=== PATIENT | female | born 1955 | race Caucasian/White ===

== ENCOUNTER 2016-10-09 14:11 | Inpatient (IN) | payer BC, OTHER ==
[2016-10-09] MEDS ORDERED: hydrALAZINE HCL 20 MG/ML 1 ML VIAL IVP STA (15:56)
[2016-10-09] MEDS ORDERED: HEPARIN SODIUM,PORCINE 5,000 UNIT/ML 1 ML VIAL IV ONE (16:08)
[2016-10-09 16:14] LABS: Basophils % (A) 0 %; CH 35.6; CHCM 34.2; Eosinophils # (A) 0.1 k/uL (0-0.7); Eosinophils % (A) 1 %; HCT 43.9 % (34.0-46.0); HDW 2.95; HGB 14.6 gm/dL (11.4-16.0); Luc % (Auto) 2; Lymphocytes % (A) 10 %; MCH 34.7 pg (25.0-35.0); MCHC 33.3 g/dL (31.0-37.0); MCV 104.4 fL (80.0-100.0); Macrocytosis Slight; Mean Platelet Volume 6.6; Monocytes # (A) 0.4 k/uL (0-1.0); Monocytes % (A) 5 %; Neutrophils # (A) 7.7 k/uL (1.3-7.7); Neutrophils % (A) 82 %; RBC 4.21 m/uL (3.80-5.40); RDW 14.1 % (11.5-15.5); WBC 9.5 k/uL (3.8-10.6); WBC (Perox) 9.56
[2016-10-09] MEDS ORDERED: HEPARIN SODIUM,PORCINE/D5W PMX 25,000 UNIT in DEXTROSE/WATER 1 500ML.BAG IV SCH (16:15)
[2016-10-09 16:22] LABS: Anion Gap 13 mmol/L; Blood Urea Nitrogen 7 mg/dL (7-17); Calcium 9.4 mg/dL (8.4-10.2); Carbon Dioxide 24 mmol/L (22-30); Chloride 102 mmol/L (98-107); Glucose 115 mg/dL (74-99); Non-African American GFR(MDRD) >60 (>60 ml/min/1.73 sqM); Potassium 3.6 mmol/L (3.5-5.1); Sodium 139 mmol/L (137-145)
[2016-10-09] MEDS ORDERED: MORPHINE SULFATE 4 MG/ML SYRINGE IVP STA (16:22)
[2016-10-09] MEDS ORDERED: ONDANSETRON 4 MG/2 ML VIAL IVP STA (16:22)
[2016-10-09 16:23] LABS: INR 1.2 (<1.1); Partial Thromboplastin Time 23.9 sec (22.0-30.0); Prothrombin Time 11.6 sec (9.0-12.0)
--- NOTE | 2016-10-09 16:24 | ED ---
Lower Extremity Injury HPI - General Chief Complaint: Extremity Problem,Nontraumatic Stated Complaint: Poss DVT Left leg Time Seen by Provider: 10/09/16 15:09 Source: patient, RN notes reviewed Mode of arrival: ambulatory Limitations: no limitations - History of Present Illness Initial Comments: 61-year-old female presents emergency Department chief complaint left foot pain. Patient states she noticed there is some purplish color to the left foot digit. Patient's had problems with her right leg in the past in which she had a stent in her femoral region. States Dr. June did this. Patient states she was a former smoker quit 5 years ago. Patient states that she does not see a physician or return the bases though she wishes a history of hyperlipidemia and uncontrolled hypertension. Patient denies any chest pain or shortness of breath. Patient states her fifth toe is very painful. - Related Data Home Medications Medication Instructions Recorded Confirmed No Known Home Medications [No 10/09/16 10/09/16 Known Home Medications] Allergies Allergy/AdvReac Type Severity Reaction Status Date / Time No Known Allergies Allergy Verified 10/09/16 14:53 Review of Systems ROS Statement: Those systems with pertinent positive or pertinent negative responses have been documented in the HPI. ROS Other: All systems not noted in ROS Statement are negative. Past Medical History Past Medical History: No Reported History History of Any Multi-Drug Resistant Organisms: None Reported Past Surgical History: Hysterectomy Additional Past Surgical History / Comment(s): Stent Past Psychological History: No Psychological Hx Reported Smoking Status: Former smoker Past Alcohol Use History: Abuse Past Drug Use History: None Reported General Exam Limitations: no limitations General appearance: alert, in no apparent distress Head exam: Present: atraumatic, normocephalic, normal inspection Respiratory exam: Present: normal lung sounds bilaterally. Absent: respiratory distress, wheezes, rales, rhonchi, stridor Cardiovascular Exam: Present: regular rate, normal rhythm, normal heart sounds. Absent: systolic murmur, diastolic murmur, rubs, gallop, clicks Extremities exam: Present: other (Left foot there is bluish purple discoloration noted to the fifth digit and some noted to the first digit and there is some redness in heel formation noted on the foot in the arch region. There is very faint pulses palpable dorsal pedal and posterior tibialis) Neurological exam: Present: alert, oriented X3, CN II-XII intact Course Vital Signs 10/09/16 10/09/16 14:18 16:01 Temperature 99 F 98.2 F Pulse Rate 110 H 93 Respiratory 18 18 Rate Blood Pressure 184/102 199/92 O2 Sat by Pulse 95 97 Oximetry Medical Decision Making - Medical Decision Making Dr. calix did discuss case with Dr. June recommends heparin, admit to hospitalist at this time. - Lab Data Result diagrams: 10/09/16 15:55 Lab Results 10/09/16 Range/Units 15:55 WBC 9.5 (3.8-10.6) k/uL RBC 4.21 (3.80-5.40) m/uL Hgb 14.6 (11.4-16.0) gm/dL Hct 43.9 (34.0-46.0) % MCV 104.4 H (80.0-100.0) fL MCH 34.7 (25.0-35.0) pg MCHC 33.3 (31.0-37.0) g/dL RDW 14.1 (11.5-15.5) % Plt Count 191 (150-450) k/uL Neutrophils % 82 % Lymphocytes % 10 % Monocytes % 5 % Eosinophils % 1 % Basophils % 0 % Neutrophils # 7.7 (1.3-7.7) k/uL Lymphocytes # 1.0 (1.0-4.8) k/uL Monocytes # 0.4 (0-1.0) k/uL Eosinophils # 0.1 (0-0.7) k/uL Basophils # 0.0 (0-0.2) k/uL Macrocytosis Slight Disposition Clinical Impression: Arterial occlusion, Left foot pain Disposition: ADMITTED IP TO THIS HOSP Condition: Stable
[2016-10-09] MEDS ORDERED: HEPARIN SODIUM,PORCINE 10,000 UNIT/ML 1 ML VIAL IV ONE (16:26)
[2016-10-09] MEDS ORDERED: HEPARIN SODIUM,PORCINE 5,000 UNIT/ML 1 ML VIAL IV PRN (16:26)
[2016-10-09] MEDS ORDERED: NALOXONE 0.4 MG/ML 1 ML VIAL IV PRN (16:27)
[2016-10-09] MEDS ORDERED: hydrALAZINE HCL 20 MG/ML 1 ML VIAL IVP PRN (16:29)
[2016-10-09] MEDS: LORazepam 2 MG/ML SYRINGE IV PRN (16:46)
[2016-10-09] MEDS: HEPARIN SODIUM,PORCINE/D5W PMX 25,000 UNIT in DEXTROSE/WATER 1 500ML.BAG IV SCH (16:49)
[2016-10-09] MEDS ORDERED: RX INFO: IV CONTRAST WAS GIVEN 1 EACH MISC MISCELLANE PRN (17:11)
--- NOTE | 2016-10-09 17:36 | P.GSCN ---
Past Medical History Past Medical History: No Reported History History of Any Multi-Drug Resistant Organisms: None Reported Past Surgical History: Hysterectomy Additional Past Surgical History / Comment(s): Stent Past Psychological History: No Psychological Hx Reported Smoking Status: Former smoker Past Alcohol Use History: Abuse Past Drug Use History: None Reported Medications and Allergies Home Medications Medication Instructions Recorded Confirmed Type No Known Home Medications [No 10/09/16 10/09/16 History Known Home Medications] Allergies Allergy/AdvReac Type Severity Reaction Status Date / Time No Known Allergies Allergy Verified 10/09/16 14:53 Surgical - Exam Vital Signs Temp Pulse Resp BP Pulse Ox 99 F 110 H 18 184/102 95 10/09/16 14:18 10/09/16 14:18 10/09/16 14:18 10/09/16 14:18 10/09/16 14:18 Results - Labs 10/09/16 15:55 10/09/16 15:55
--- NOTE | 2016-10-09 18:30 | CT ---
EXAMINATION TYPE: CT angio abdomen pelvis DATE OF EXAM: 10/09/2016 6:16 PM COMPARISON: NONE HISTORY: Pt states of occlusion to left leg with left foot pain. Hx of occlusion to right leg. CT DLP: 1800 mGycm Automated exposure control for dose reduction was used. CONTRAST: Performed with IV Contrast, patient injected with 125 mL of Omnipaque 350. FINDINGS: There are 3-D post processed images. Abdominal aorta is patent. There is moderate atherosclerotic plaque in the abdominal aorta with lumen narrowing up to 30%. There is no evidence of an aneurysm. There is patency of the superior mesenteri c artery and the celiac artery. There is bilateral renal artery patency. I see no evidence of hemodyn amically significant stenosis. There is some plaque at the origin of the right renal artery. There is bilateral patency of the common internal and external iliac arteries. There is patency of th e femoral arteries. There is patency of the popliteal and tibial artery trifurcations. There is arter ial flow in the anterior and posterior tibial arteries down to the ankle. There is diffuse plaque in the femoral arteries with lumen narrowing of the 50% in multiple areas. This is worse on the left com pared to the right. There is 50% stenosis at the origin of the left posterior tibial artery. IMPRESSION: THERE ARE ATHEROSCLEROTIC PLAQUE WITH VARIABLE STENOSIS DEMONSTRATED UP TO 50% DESCRIBED ABOVE. NO EVIDENCE OF COMPLETE OCCLUSION. THERE IS ANTERIOR AND POSTERIOR TIBIAL ARTERY FLOW AT BOTH ANKLES. I DO NOT SEE A CAUSE FOR LEFT-SIDED FOOT PAIN.
[2016-10-09] MEDS: HYDROcodone/APAP 5-325MG 1 EACH TAB PO PRN (20:44)
[2016-10-09] MEDS: MORPHINE SULFATE 4 MG/ML SYRINGE IV PRN (23:39)
[2016-10-10] MEDS: HYDROcodone/APAP 5-325MG 1 EACH TAB PO PRN ×3 (02:31→23:55)
[2016-10-10] MEDS: MORPHINE SULFATE 4 MG/ML SYRINGE IV PRN ×2 (03:35→12:16)
[2016-10-10] MEDS: ONDANSETRON 4 MG/2 ML VIAL IVP PRN ×2 (07:43→17:22)
[2016-10-10 07:49] LABS: INR 1.3 (<1.1); Partial Thromboplastin Time 67.8 sec (22.0-30.0); Prothrombin Time 12.4 sec (9.0-12.0)
[2016-10-10] MEDS: LORazepam 2 MG/ML SYRINGE IV PRN (08:15)
[2016-10-10] MEDS ORDERED: ASPIRIN 325 MG TAB PO STA (11:47)
[2016-10-10] MEDS ORDERED: ceFAZolin 2 GM in SODIUM CHLORIDE 0.9% 100 ML IVPB STA (13:31)
[2016-10-10] MEDS ORDERED: MIDAZOLAM 2 MG/2 ML VIAL IVP ONE (13:41)
[2016-10-10] MEDS ORDERED: fentaNYL (PF) 50 MCG/ML 2 ML AMP IV ONE (13:41)
[2016-10-10] MEDS ORDERED: IV FLUID CONTINUATION 500 ML IV ONE (13:41)
[2016-10-10] MEDS ORDERED: LIDOCAINE 2% INJ 20 MG/ML SQ ONE (13:43)
[2016-10-10] MEDS ORDERED: HEPARIN SODIUM 1,000 UNIT/ML VIAL IV ONE (13:59)
[2016-10-10] MEDS ORDERED: HYDROmorphone 2 MG/ML 1 ML SYRINGE IVP ONE (14:07)
[2016-10-10] MEDS ORDERED: CLOPIDOGREL 75 MG TAB PO ONE (14:34)
[2016-10-10] MEDS ORDERED: PROTAMINE SULFATE 10 MG/ML 5 ML VIAL IV ONE (14:40)
[2016-10-10] MEDS ORDERED: IODIXANOL 320 MG/ML 100 ML INTRAARTER ONE (14:41)
[2016-10-10] MEDS: hydrALAZINE HCL 20 MG/ML 1 ML VIAL IV ONE ×2 (14:44→14:50)
--- NOTE | 2016-10-10 15:34 | IR ---
EXAMINATION TYPE: IR stent intravas non coronary DATE OF EXAM: 10/10/2016 3:20 PM COMPARISON: NONE HISTORY: Peripheral vascular occlusive disease. Fluoroscopy was applied to the referring clinician. See dictated report from vascular surgery.
[2016-10-10] MEDS: HEPARIN SODIUM,PORCINE/D5W PMX 25,000 UNIT in DEXTROSE/WATER 1 500ML.BAG IV SCH (17:00)
[2016-10-10] MEDS ORDERED: ALPRAZolam 0.25 MG TAB PO PRN (17:15)
[2016-10-10 18:29] LABS: Appearance,Urine Clear (Clear); Bacteria,Urine Moderate /hpf; Bilirubin,Urine Negative (Negative); Glucose,Urine (UA) Negative (Negative); Ketones,Urine Trace (Negative); Leukocyte Esterase,Urine Negative (Negative); Mucus,Urine Few /hpf; Nitrite,Urine Negative (Negative); PH, Urine 6.5 (5.0-8.0); Particle Count 20389; Protein,Urine 1+ (Negative); RBC,Urine 3 /hpf (0-5); Squamous Epithelial Cell,Urine 1 /hpf (0-4); UA Billing (MACRO vs. MICRO) MICRO; Urobilinogen,Urine <2.0 mg/dL (<2.0)
[2016-10-10 18:35] LABS: Specific Gravity,Urine >1.050 (1.001-1.035)
[2016-10-10] MEDS ORDERED: TEMAZEPAM 15 MG CAP PO PRN (21:00)
--- NOTE | 2016-10-10 21:09 | HP ---
DATE OF ADMISSION: CHIEF COMPLAINT: Pain and discoloration of the left foot, especially the little toe. HISTORY OF PRESENT ILLNESS: This 61-year-old woman with a past history of bronchitis also has constipation, UTI, history of hysterectomy, history of depression, history of previous peripheral vascular disease and femoropopliteal stent on the right side with ischemic event on the right side, being followed Dr. Vu in the outpatient setting, complaining of severe pain of the right leg since yesterday. The patient came to the emergency room and was admitted for further evaluation and treatment. The patient also noted some purplish discoloration of the foot digit. Dr. June saw the patient. Abdominal/pelvis CT scan showed some stenosis in the main arterial system with some atherosclerotic plaques. Dr. June is planning further vascular procedures and stenting also. Patient is being closely monitored. There is no history of any fever, rigor, or chills. No history of any headache, loss of consciousness, seizures. PAST MEDICAL HISTORY: 1. History of bronchitis. 2. Colitis. 3. Endometriosis. 4. History of appendectomy. 5. History of tubal ligation. 6. History of depression. MEDICATIONS PRIOR TO ADMISSION: None. ALLERGIES: NONE. FAMILY HISTORY: History of lung cancer, brain tumor in the family. SOCIAL HISTORY: Previous history of smoking. Occasional alcohol intake. REVIEW OF SYSTEMS: ENT: No diminished hearing. No diminished vision. CARDIOVASCULAR SYSTEM: No angina, palpitations. RESPIRATORY SYSTEM: No cough, hemoptysis. GI: No nausea. : No dysuria. NERVOUS SYSTEM: No numbness or weakness. ALLERGY/IMMUNOLOGY: No asthma, hayfever. MUSCULOSKELETAL: As mentioned earlier. HEMATOLOGY/ONCOLOGY: No history of anemia. ENDOCRINE: No history of diabetes, hypothyroidism. CONSTITUTIONAL: As mentioned earlier. DERMATOLOGY: Negative. RHEUMATOLOGY: Negative. PSYCHIATRY: As mentioned earlier. PHYSICAL EXAMINATION: The patient is alert and oriented x3. Pulse is 100, blood pressure 130/60, respiratory rate 16, temperature normal, pulse ox 98% on 2 L. HEENT: Conjunctivae normal. NECK: No jugular venous distention. CARDIOVASCULAR SYSTEM: S1, S2 muffled. RESPIRATORY: Breath sounds diminished in the bases. A few scattered rhonchi. No crackles. ABDOMEN: Soft, nontender. No mass palpable. LEGS: Pulses diminished on the left side; otherwise, purplish discoloration and severe tenderness in the left little toe present. NERVOUS SYSTEM: Higher functions as mentioned earlier. Moves all 4 limbs. No focal motor or sensory deficit. LYMPHATICS: No lymph node palpable in neck, axillae or groin. SKIN: No ulcer, rash, bleeding. LABS: MCV 104. Glucose 115. ASSESSMENT: 1. Severe peripheral vascular disease on the left leg with arterial occlusion with ischemic left little toe. 2. Heparin monitoring. 3. Increased mean corpuscular volume. 4. History of nicotine dependence. 5. History of peripheral vascular disease and stenting on the right side. 6. History of bronchitis. 7. History of ulcerative colitis. 8. History of endometriosis. 9. History of constipation. 10. History of appendectomy. 11. Hysterectomy. 12. History of depression. 13. History of bowel obstruction secondary to endometriosis. 14. Remote history of ethanol. RECOMMENDATIONS AND DISCUSSION: In this 61-year-old woman who presented with multiple complex medical issues, we will monitor the patient closely, continue the current medications, continue symptomatic treatment. Continue with the antiplatelet agents. Closely follow with Vascular Surgery. Continue with IV heparin monitoring, PTT. Otherwise, I would also check a lipid panel. Guarded prognosis because of multiple complex medical issues. See orders for further details. Further recommendations to follow. MTDD
[2016-10-11 06:58] LABS: Basophils # (A) 0.1 k/uL (0-0.2); Basophils % (A) 1 %; CH 35.2; CHCM 32.7; Eosinophils # (A) 0.1 k/uL (0-0.7); Eosinophils % (A) 2 %; HCT 40.3 % (34.0-46.0); HDW 2.88; Luc # (Auto) 0.17; Luc % (Auto) 3; Lymphocytes # (A) 0.5 k/uL (1.0-4.8); Lymphocytes % (A) 8 %; MCH 34.9 pg (25.0-35.0); MCHC 32.3 g/dL (31.0-37.0); Macrocytosis Moderate; Mean Platelet Volume 7.7; Monocytes # (A) 0.3 k/uL (0-1.0); Monocytes % (A) 5 %; Neutrophils % (A) 82 %; RBC 3.73 m/uL (3.80-5.40); RDW 14.3 % (11.5-15.5); WBC 6.1 k/uL (3.8-10.6); WBC (Perox) 6.67
--- NOTE | 2016-10-11 07:07 | PCN ---
DATE OF PROCEDURE: PREOPERATIVE DIAGNOSIS: Ischemic left foot, fifth toe, with occlusion of the left external iliac artery. OPERATION: Left leg angiogram to evaluate the left iliac artery. DESCRIPTION OF PROCEDURE: This patient came to the emergency room with a history of severe pain in her left foot involving the fifth toe with discoloration of the fifth toe. Patient had a CT angiogram which showed external iliac occlusive disease. Patient was heparinized overnight and we stopped the heparin 4 hours prior to intervention. Patient was brought to the laborer carpentry dock. Left groin was prepped and draped in the usual manner. After that, ultrasound-guided micropuncture ( ) was introduced to the left common femoral artery. Micropuncture guidewire was passed and 4 Chinese dilator was advanced on top of the guidewire. After that, we exchanged the 4 Chinese with 6 Chinese sheath, which was passed on the top of the guidewire and flushed with heparin saline. We used a QuickCross guidewire using 0.14 guidewire, which crossed the lesion, which was parked at the aorta and this was exchanged with 0.35 stiff Glidewire and pigtail catheter was advanced on top of the Glidewire, which was parked at the a distal aorta and with power injector. Aortogram was performed. This patient had a right common iliac stent placed in the past and left external iliac artery was visualized, which had a high-grade stenosis. We gave 5000 systemic heparin and stenotic area was localized and using Absolute stent 9 x 60 mm which was advanced on top of the Glidewire, which was deployed at the left common iliac artery and covering the external iliac artery stenotic area, which was deployed satisfactory. After that, we used balloon [place] 8 x 60 which was inflated for a minute and then removed. After that, we passed a pigtail on the top of the Glidewire and angiogram was performed and found to have satisfactory dilatation of the external iliac artery. No dissection, no leak was noted. Pigtail catheter was removed. We checked the ACT. ACT was 240. I gave 20 mg of protamine and we checked the blood pressure. Blood pressure was 196/102. At that time we gave 5 mg hydralazine and blood pressure was brought down to 136/80. Then the sheath was removed. Pressure was held for 10 minutes and there was no hematoma noted. Patient had a palpable dorsalis pedis pulse on the left side. Patient was transferred to her room in satisfactory condition.
[2016-10-11 07:10] LABS: INR 1.2 (<1.1)
[2016-10-11 07:11] LABS: Partial Thromboplastin Time 25.2 sec (22.0-30.0); Prothrombin Time 11.7 sec (9.0-12.0)
[2016-10-11 07:12] LABS: Anion Gap 10 mmol/L; Blood Urea Nitrogen 11 mg/dL (7-17); Calcium 8.9 mg/dL (8.4-10.2); Carbon Dioxide 26 mmol/L (22-30); Chloride 102 mmol/L (98-107); Cholesterol 189 mg/dL (<200); Glucose 101 mg/dL (74-99); HDL Cholesterol 54 mg/dL (40-60); Non-African American GFR(MDRD) >60 (>60 ml/min/1.73 sqM); Potassium 3.7 mmol/L (3.5-5.1); Sodium 138 mmol/L (137-145); Triglycerides 84 mg/dL (<150)
[2016-10-11] MEDS: CLOPIDOGREL 75 MG TAB PO SCH (08:53)
[2016-10-11] MEDS: HYDROcodone/APAP 5-325MG 1 EACH TAB PO PRN (08:58)
--- NOTE | 2016-10-11 10:23 | P.PN ---
Progress Note - Text 61 old white female, patient came ischemic left foot, patient had a left external iliac arteries and angioplasty vessel with stent placement to she tolerated the procedure well on examination today she palpable dorsalis pedis pulse left groin no hematoma seen patient will go to stepdown floor most likely tomorrow patient go home
[2016-10-11 16:34] VITALS: RESP 18
[2016-10-11] MEDS: ATORVASTATIN 40 MG TAB PO SCH (16:35)
--- NOTE | 2016-10-11 18:50 | PN ---
DATE OF SERVICE: 10/11/2016 This 61-year-old woman was admitted with ischemic left leg and severe pain underwent PTBA by Dr. June. The patient underwent left external iliac angioplasty with stent placement. The patient's pain is improved significantly but the discoloration of the little toe is still persistent even though appears to be getting better. No chest pain. No palpitation. No fever. On exam, alert and oriented x3. Pulse 94, blood pressure 127/78, respiratory rate 18, temperature 97.9, pulse ox 93% on room air. HEENT: Conjunctivae normal. NECK: No jugular venous distention. CARDIOVASCULAR: S1, S2 muffled. RESPIRATORY: Breath sounds diminished at the bases. No rhonchi. No crackles. ABDOMEN: Soft, nontender. Legs: No edema. No swelling. Pulses felt. Otherwise, discoloration as mentioned earlier which is improving on the left toe and plantar aspect of the great toe as well. LABS: INR 1.2. WBC 6.9, hemoglobin 13, UA noted. Drug screen is positive benzodiazepines, opiates. ASSESSMENT: 1. Severe peripheral vascular disease with left leg with ischemic left leg with artery occlusion with ischemic left knee status post angioplasty and as well as stent placement in external iliac circulation. 2. Heparin monitoring. 3. Increased MCV. 4. History of nicotine dependence. 5. History of peripheral vascular disease and stenting of the right side previously. 6. History of bronchitis. 7. History of ulcerative colitis. 8. History of endometriosis. 9. History of constipation. 10. History of appendectomy. 11. History of hysterectomy. 12. History of depression. 13. History of bowel obstruction secondary to endometriosis. 14. Remote history of ETOH. 15. Remote history nicotine dependence. 16. FULL CODE. RECOMMENDATIONS AND DISCUSSION: In this 61-year-old woman who presented with multiple complex medical issues, we will monitor the patient closely. Continue the current medications and continue symptomatic treatment. Otherwise, at this time, I recommend to continue with antiplatelet agents. Closely follow with Dr. June. Continue the rest of the medications. Guarded prognosis because of multiple complex medical issues. Further recommendations to follow.
[2016-10-11 22:34] VITALS: TEMP 97.6
[2016-10-12 07:28] LABS: Basophils % (A) 1 %; CH 35.2; CHCM 32.8; Eosinophils # (A) 0.2 k/uL (0-0.7); Eosinophils % (A) 3 %; HCT 38.8 % (34.0-46.0); HDW 2.86; HGB 12.3 gm/dL (11.4-16.0); Luc # (Auto) 0.21; Luc % (Auto) 4; Lymphocytes # (A) 0.8 k/uL (1.0-4.8); Lymphocytes % (A) 13 %; MCH 34.1 pg (25.0-35.0); MCHC 31.7 g/dL (31.0-37.0); MCV 107.7 fL (80.0-100.0); Macrocytosis Moderate; Mean Platelet Volume 6.9; Monocytes # (A) 0.3 k/uL (0-1.0); Monocytes % (A) 6 %; Neutrophils # (A) 4.4 k/uL (1.3-7.7); Neutrophils % (A) 75 %; RDW 14.3 % (11.5-15.5); WBC 5.9 k/uL (3.8-10.6); WBC (Perox) 5.95
[2016-10-12 07:30] LABS: INR 1.2 (<1.1); Prothrombin Time 11.9 sec (9.0-12.0)
[2016-10-12 08:27] VITALS: BP 142/75; PULSE 84
[2016-10-12] MEDS: CLOPIDOGREL 75 MG TAB PO SCH (08:27)
[2016-10-12] MEDS: ATORVASTATIN 40 MG TAB PO SCH (08:27)
--- NOTE | 2016-10-13 11:28 | DS ---
DATE OF ADMISSION: 10/09/2016 DATE OF DISCHARGE: 10/12/2016 DATE OF SERVICE: 10/12/2016 FINAL DIAGNOSES: 1. Severe peripheral vascular disease of the left leg with ischemic left leg with arterial occlusion with status post angioplasty as well as stent placement in the extremity circulation on the left side. 2. Heparin monitoring. 3. Increased MCV. 4. History of nicotine dependence. 5. History of peripheral arterial disease and stenting of the right side previously. 6. History of bronchitis and history of ulcerative colitis. 7. History of endometriosis. 8. History of constipation. 9. History of appendectomy. 10. History of hysterectomy. 11. History of depression. 12. History of bowel obstruction secondary to endometriosis. 13. Remote history of Ethyl alcohol. 14. Remote history of nicotine dependence. 15. FULL CODE. DISCHARGE DISPOSITION: The patient will be discharged in a stable condition with guarded prognosis. Patient discharge cleared by Dr. June. HISTORY OF PRESENT ILLNESS: This 61-year-old woman with a past medical history of multiple medical problems was admitted with severe peripheral vascular disease of the left leg and also ischemic left leg in multiple areas with severe pain. The patient underwent a PTBA by Dr. June and the patient improved significantly. Please refer to Dr. June's detailed operative procedure notes for further details. Otherwise, patient was treated with antiplatelets and Lipitor. Patient improved significantly. No chest pain or palpitation. No fever. Currently, on exam alert and oriented x3, vitals are stable. CARDIOVASCULAR SYSTEM: S1, S2 muffled. ABDOMEN: Soft. NERVOUS SYSTEMS: No focal deficits. DISCHARGE ADVICE: 1. Diet is cardiac. 2. Activity limited until followup. 3. Follow up with Dr. Vu in 2 to 3 days. 4. Follow up with Dr. June in 1 week. Medications are: 1. Lipitor 40 mg p.o. daily. 2. Plavix 75 mg p.o. daily. 3. [place] 5 mg q.4 p.r.n. Once again, the patient will be discharged in a stable condition with guarded prognosis.
--- NOTE | 2016-12-11 15:41 | US ---
DATE OF PROCEDURE: 10/09/2016 This patient had pulse wave recording of the both lower extremities. Right iliac artery and femoral artery and popliteal artery has triphasic signal. There is no pressure gradient. Ankle-brachial index on the right side is 0.96. Left side has biphasic flow. There is pressure gradient noted. In the iliac and femoral on the left side with pressure gradient of 30. Also there is some infrapopliteal pressure gradient and ankle-brachial index on the left side is 0.58 suggestive of left iliac occlusive disease and some mild infrapopliteal disease and right side has a normal triphasic with index of 0.96.
== END 2016-10-12 13:20 | disposition home or self-care (01) | DRG 253 ==
LOC: EC 14:11 → 5MS5E 16:54 → 6SEL 10-10 16:08 → 5MS5E 10-11 19:30
PROVIDERS: ADMIT Internal Medicine; ATTEND Internal Medicine
PROC: B41D1ZZ Fluoroscopy of Aorta and Bilateral Lower Extremity Arteries using Low Osmolar Contrast (ICD-10-PCS; principal; 2016-10-10 13:22)
PROC: 047D3DZ Dilation of Left Common Iliac Artery with Intraluminal Device, Percutaneous Approach (ICD-10-PCS; principal; 2016-10-10 13:22)
DX: I70.292 Other atherosclerosis of native arteries of extremities, left leg (principal); I74.5 Embolism and thrombosis of iliac artery; I10 Essential (primary) hypertension; E78.5 Hyperlipidemia, unspecified; Z87.891 Personal history of nicotine dependence
CPT/HCPCS: 36415; 37221; 74174; 80048; 80061; 80306; 81001; 85025; 85347; 85610; 85730; 93922; 96365; 96366; 96375; 96376; 99285

== ENCOUNTER 2017-01-01 14:01 | Emergency (ER) | payer OTHER ==
[2017-01-01] MEDS ORDERED: ENALAPRILAT 1.25 MG/ML 1 ML VIAL IVP STA (15:11)
--- NOTE | 2017-01-01 15:12 | ED ---
Extremity Problem HPI - General Chief complaint: Extremity Problem,Nontraumatic Stated complaint: Stent in groin. Diff walking Time Seen by Provider: 01/01/17 14:16 Source: patient, RN notes reviewed, old records reviewed Mode of arrival: wheelchair Limitations: no limitations - History of Present Illness Initial comments: Chief complaint and history of present illness is a 61-year-old female complaint of pain to her distal left leg and foot and discoloration to her left little toe, turning purple, for 4 days. Patient stayed home hoping it would get better. Patient states she had a stent placed to increase the flow to that left leg this past October. - Related Data Home Medications Medication Instructions Recorded Confirmed No Known Home Medications [No 01/01/17 01/01/17 Known Home Medications] Allergies Allergy/AdvReac Type Severity Reaction Status Date / Time No Known Allergies Allergy Verified 01/01/17 14:42 Review of Systems ROS Statement: Those systems with pertinent positive or pertinent negative responses have been documented in the HPI. Review of systems no headache or visual acuity changes no chest pain no palpitations no shortness of breath no abdominal pain no nausea no vomiting. She reports when she stands she has a burning pain to her inner left thigh. But otherwise for the past 4 days she's had increasing pain and cold feeling with a a purple discoloration to her left little toe. All systems reviewed. Past medical problems significant for peripheral vascular disease. She's had surgery on the right side more recently on the left. Patient was told to take aspirin daily but she has not done that for over 2 weeks. Patient also has a history of hypertension current blood pressure 183/103. She states she's been told and has had a prescription written but she does not take the medications. She had no good explanation as to why she didn't. Patient did stop smoking approximately 5 years ago when she had the right leg stented. Other medical problems include bronchitis which she says improved significantly after she stopped smoking. Her surgeries include appendectomy, bowel resection because of endometriosis wrapped around the bowel and it was removed during a total hysterectomy years ago. She's also had a stent to the right groin approximately 5 years ago and a stent to her left groin to improve blood flow to her feet this past October. Family history significant for mother with colon cancer. She denies any ALLERGIES. As noted above she quit smoking in 2011. She does drink liquor daily. ROS Other: All systems not noted in ROS Statement are negative. Past Medical History Past Medical History: No Reported History Additional Past Medical History / Comment(s): BRONCHITIS,ULCERATIVE COLITIS, ENDOMETREOSIS, CONSTIPATION, UTI, SHINGLES > 5 YEARS, OCC TINNITUS, "BORN WITH 10% RETINA LT EYE" History of Any Multi-Drug Resistant Organisms: None Reported Past Surgical History: Appendectomy, Bowel Resection, Hysterectomy, Tubal Ligation Additional Past Surgical History / Comment(s): "Stent RT GROIN", BARTHOLIN CYST REMOVED, TOTAL HX AND 4" OF SMALL INTESTINE REMOVED D/T ENDOMETREOSIS" Past Anesthesia/Blood Transfusion Reactions: No Reported Reaction Past Psychological History: Depression Additional Psychological History / Comment(s): PT STATED HAS SOME DEPRESSION AND ADMITS TO DRINKING A PINT TO PINT AND A HALF OF SCHNAPPS A DAY. 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 LOST HER JOB 2015. LIVES ALONE HAS 5 STEPS INTO HOME AND 8 BASEMENT STEPS,HAS 1 INDOOR DOG, NO OUTSIDE SERVICES.NO MEDICAL EQUIPMENT. DRIVES. Smoking Status: Former smoker Past Alcohol Use History: None Reported, Daily Additional Past Alcohol Use History / Comment(s): PINT TO PINT AND A HALF OF SCHNAPPS A DAY. STARTED SMOKING AT AGE 16(1971), SMOKED 1 PPD, QUIT 2011 Past Drug Use History: None Reported - Past Family History Father Family Medical History: Cancer Additional Family Medical History / Comment(s): LUNG CANCER(SMOKED), BRAIN TUMOR REMOVED-HAD RADIATION [place] THEN HAD STROKE. Mother Family Medical History: Cancer Additional Family Medical History / Comment(s): COLON AND SKIN CANCER. ALSO HAD TB Brother(s) Additional Family Medical History / Comment(s): 1 BROTHER HAS MS, ANOTHER BROTHER FROM COMPLICATIONS FROM ETOH/SCHIZOPHRENIA General Exam - General Exam Comments Initial Comments: General: The patient is awake and alert, complaining of increasing pain and coldness to her right ankle and foot with her left toe becoming more purple for 4 days. Vital signs shows temperature 99.3 pulse 100 respiratory rate 18 pulse ox 97% room air blood pressure 183/103. Eye: Pupils are equal, round and reactive to light, extra-ocular movements are intact ; there is normal conjunctiva bilaterally. No signs of icterus. Ears, nose, mouth and throat: There are moist mucous membranes and no oral lesions. Neck: The neck is supple, there is no tenderness . Cardiovascular: There is a regular rate and rhythm. No murmur, rub or gallop is appreciated. Respiratory: Lungs are clear to auscultation, respirations are non-labored, breath sounds are equal. No wheezes, stridor, rales, or rhonchi. Gastrointestinal: Soft, non-distended, non-tender abdomen without masses or organomegaly noted. There is no rebound or guarding present. No CVA tenderness. Bowel sounds are unremarkable. Back: There is no tenderness to palpation in the midline. There is no obvious deformity. No rashes noted. Musculoskeletal: Burning pain while standing and walking to the inner left thigh. Cold, pain distal left leg ankle to foot. With discoloration, purplish, left little toe. Doppler shows a week he has dorsalis pulse. Neurological: Neurologically intact except for a burning sensation in her left thigh when she stands. Skin: Left little toe purplish, dusky. Poor vascular return Limitations: no limitations Course Vital Signs 01/01/17 01/01/17 01/01/17 14:03 14:39 14:43 Temperature 99.3 F Pulse Rate 93 101 H 100 Respiratory 18 16 18 Rate Blood Pressure 213/98 212/105 183/103 O2 Sat by Pulse 95 99 97 Oximetry 01/01/17 01/01/17 15:25 16:01 Temperature Pulse Rate 94 108 H Respiratory 18 20 Rate Blood Pressure 190/116 180/95 O2 Sat by Pulse 97 99 Oximetry Medical Decision Making - Medical Decision Making Doppler examination of the left foot finds a very weak pedis dorsalis pulse. Case discussed with the patient's vascular surgeon Dr. June he will see the patient in the emergency room or the hospital. The patient was given Vasotec 1.25 IV push for elevated blood pressure. tthe patient was seen by Dr. June who has arranged for the patient to be transferred to [facility] for evaluation and management by vascular surgeon Dr. Marquez. Patient hasn't ischemic left leg. The patient will first have a CT of abdomen and pelvis with runoff product being transferred to [facility]. EKG was done and reviewed at 1528 showing sinus rhythm with a short NJ interval and occasional PACs. Otherwise nonspecific ST-T wave changes. No acute ST elevation no ectopy. Patient's ventricular rate 93 NJ interval is 110 QRS 94 QT [address] of the abdomen and pelvis with runoff to the feet. Was done and reviewed by radiologist entire report was reviewed. His final impression is #1 marked atheromatous calcifications of the visualized arterial tree. Number to near complete occlusion of the origin of the superficial femoral artery. #33 vessel runoff proximally in both legs with 2 vessel runoff to the ankle on the right and one vessel runoff to the ankle on the left. Number for fatty infiltration of the liver. #5 mild cardiomegaly. #6 small bowel hernia. #7 postsurgical change. As read by Dr. Qureshi The patient be transferred via ambulance [facility] and to be evaluated by vascular surgeon Dr. Marquez Available CAT scans will be included in the discharge transfer packet. - Lab Data Result diagrams: 01/01/17 15:20 01/01/17 15:20 Lab Results 01/01/17 01/01/17 01/01/17 Range/Units 15:20 15:20 15:20 WBC 9.8 (3.8-10.6) k/uL RBC 3.60 L (3.80-5.40) m/uL Hgb 13.0 (11.4-16.0) gm/dL Hct 39.2 (34.0-46.0) % MCV 108.9 H (80.0-100.0) fL MCH 36.2 H (25.0-35.0) pg MCHC 33.2 (31.0-37.0) g/dL RDW 18.2 H (11.5-15.5) % Plt Count 260 (150-450) k/uL Neutrophils % 83 % Lymphocytes % 11 % Monocytes % 4 % Eosinophils % 1 % Basophils % 0 % Neutrophils # 8.1 H (1.3-7.7) k/uL Lymphocytes # 1.1 (1.0-4.8) k/uL Monocytes # 0.4 (0-1.0) k/uL Eosinophils # 0.1 (0-0.7) k/uL Basophils # 0.0 (0-0.2) k/uL Anisocytosis Slight Macrocytosis Marked PT 10.8 (9.0-12.0) sec INR 1.1 (<1.1) Sodium 141 (137-145) mmol/L Potassium 3.4 L (3.5-5.1) mmol/L Chloride 103 (98-107) mmol/L Carbon Dioxide 25 (22-30) mmol/L Anion Gap 13 mmol/L BUN 7 (7-17) mg/dL Creatinine 0.60 (0.52-1.04) mg/dL Est GFR (MDRD) Af Amer >60 (>60 ml/min/1.73 sqM) Est GFR (MDRD) Non-Af >60 (>60 ml/min/1.73 sqM) Glucose 111 H (74-99) mg/dL Calcium 9.6 (8.4-10.2) mg/dL Total Bilirubin 1.4 H (0.2-1.3) mg/dL AST 62 H (14-36) U/L ALT 53 H (9-52) U/L Alkaline Phosphatase 119 (38-126) U/L Total Protein 7.4 (6.3-8.2) g/dL Albumin 4.3 (3.5-5.0) g/dL Disposition Clinical Impression: Ischemia of left lower extremity Disposition: OTHER INSTITUTION NOT DEFINED Condition: Serious Referrals: Sarah Beth Vu MD [Primary Care Provider] - 1-2 days - Out of Hospital Transfer - Req. Specs Out of Hospital Transfer - Requested Specifics: Other Emergency Center ( [facility] emergency room)
[2017-01-01] MEDS ORDERED: SODIUM CHLORIDE 0.9% 1,000 ML IV SCH (15:15)
[2017-01-01] MEDS ORDERED: RX INFO: IV CONTRAST WAS GIVEN 1 EACH MISC MISCELLANE PRN (15:50)
[2017-01-01 16:10] LABS: ALT 53 U/L (9-52); AST 62 U/L (14-36); Alkaline Phosphatase 119 U/L (38-126); Anion Gap 13 mmol/L; Blood Urea Nitrogen 7 mg/dL (7-17); Calcium 9.6 mg/dL (8.4-10.2); Carbon Dioxide 25 mmol/L (22-30); Chloride 103 mmol/L (98-107); Glucose 111 mg/dL (74-99); Non-African American GFR(MDRD) >60 (>60 ml/min/1.73 sqM); Potassium 3.4 mmol/L (3.5-5.1); Sodium 141 mmol/L (137-145); Total Bilirubin 1.4 mg/dL (0.2-1.3); Total Protein 7.4 g/dL (6.3-8.2)
[2017-01-01 16:12] LABS: Anisocytosis Slight; Basophils % (A) 0 %; CH 36.4; CHCM 33.5; Eosinophils # (A) 0.1 k/uL (0-0.7); Eosinophils % (A) 1 %; HCT 39.2 % (34.0-46.0); Luc # (Auto) 0.16; Luc % (Auto) 2; Lymphocytes # (A) 1.1 k/uL (1.0-4.8); Lymphocytes % (A) 11 %; MCH 36.2 pg (25.0-35.0); MCHC 33.2 g/dL (31.0-37.0); MCV 108.9 fL (80.0-100.0); Macrocytosis Marked; Mean Platelet Volume 7.2; Monocytes # (A) 0.4 k/uL (0-1.0); Monocytes % (A) 4 %; Neutrophils # (A) 8.1 k/uL (1.3-7.7); Neutrophils % (A) 83 %; RDW 18.2 % (11.5-15.5); WBC 9.8 k/uL (3.8-10.6); WBC (Perox) 9.56
[2017-01-01 16:21] LABS: INR 1.1 (<1.1); Prothrombin Time 10.8 sec (9.0-12.0)
--- NOTE | 2017-01-01 17:10 | CT ---
EXAMINATION TYPE: CT angio abd aorta wo/w con DATE OF EXAM: 01/01/2017 4:55 PM COMPARISON: Previous study dated 10/09/2016 HISTORY: Inability to bear weight on the left leg CT DLP: 1182.3 mGycm Automated exposure control for dose reduction was used. TECHNIQUE: Performed with IV Contrast, patient injected with 125 mL of Omnipaque 350. Helical acquisition through the lower thoracic and abdominal aorta with imaging through the legs was obtained following the intravenous administration of 125 cc of Omnipaque 350. The data was reformatte d in axial, coronal and sagittal projections. Three-dimensional volume acquired imaging was performed on the CT scanner. FINDINGS: Visualized portions of the lungs are clear. There is no pleural or pericardial fluid. The h eart is mildly enlarged. There is a small hiatal hernia. Within the abdomen, is fatty infiltration of the liver. The spleen and gallbladder appear normal. There is mild fullness of both adrenal glands. Both kidneys demonstrate function and appear morphologically normal. The pancreas is unremarkable. There is atheromatous calcification of the visualized arterial tree. There is mild ectasia of the inf rarenal abdominal aorta with maximal transverse diameter of 3 cm. There is no significant retroperitoneal, iliac or inguinal adenopathy. The bladder is unremarkable. There is been a previous partial right hemicolectomy. Small bowel loops are normal. No free fluid and no free air is seen. There is extensive calcification of the internal and external iliac arteries bilaterally. Both common femoral arteries at are patent. There is a near occlusion of the origin of the superficial femoral a rtery on the left. The artery is markedly attenuated. Both popliteal arteries are patent. There is three-vessel runoff proximally bilaterally. Both the anterior and the posterior tibial arter ies are patent to the ankle on the right. The anterior tibial artery on the left attenuates just abov e the ankle. No acute osseous lesion is seen in either leg. There are significant degenerative changes in the hips , worse on the left than the right. There is facet arthropathy in the lower lumbar spine. No osseous destructive lesion is seen.. IMPRESSION: 1. MARKED ATHEROMATOUS CALCIFICATION OF THE VISUALIZED ARTERIAL TREE. 2. NEAR-COMPLETE OCCLUSION OF THE ORIGIN OF THE SUPERFICIAL FEMORAL ARTERY. 3. THREE-VESSEL RUNOFF PROXIMALLY IN BOTH LEGS WITH TWO-VESSEL RUNOFF TO THE ANKLE ON THE RIGHT AND O NE VESSEL RUNOFF TO THE ANKLE ON THE LEFT. 4. FATTY INFILTRATION OF THE LIVER. 5. MILD CARDIOMEGALY. 6. SMALL HIATAL HERNIA. 7. POSTSURGICAL CHANGE.
[2017-01-01 17:36] VITALS: RESP 18; TEMP 97.8
[2017-01-01 18:01] VITALS: BP 151/82; PULSE 104
== END 2017-01-01 19:00 | disposition short-term general hospital (02) ==
LOC: EC 14:01
DX: M62.272 Nontraumatic ischemic infarction of muscle, left ankle and foot (principal); I49.1 Atrial premature depolarization; I51.7 Cardiomegaly; K76.0 Fatty (change of) liver, not elsewhere classified; I70.90 Unspecified atherosclerosis; K44.9 Diaphragmatic hernia without obstruction or gangrene; I74.3 Embolism and thrombosis of arteries of the lower extremities; R03.0 Elevated blood-pressure reading, without diagnosis of hypertension; Z87.891 Personal history of nicotine dependence; Z90.49 Acquired absence of other specified parts of digestive tract; Z95.828 Presence of other vascular implants and grafts
CPT/HCPCS: 36415; 93005; 80053; 85025; 85610; 75635; 99285; 96374; 96361 ×4; Q9967

== ENCOUNTER 2017-05-18 17:40 | Emergency (ER) | payer OTHER ==
[2017-05-18 17:46] VITALS: PULSE 73; RESP 18; TEMP 97.3
[2017-05-18] MEDS ORDERED: DIPH,PERTUS(ACELL)TETVAC-LF 0.5 ML VIAL IM ONE (17:59)
--- NOTE | 2017-05-18 18:08 | ED ---
Fall HPI - General Chief Complaint: Fall Stated Complaint: Fall Time Seen by Provider: 05/18/17 17:47 Source: patient, EMS Mode of arrival: EMS - History of Present Illness Initial Comments: Patient is a 61-year-old female with past medical history significant for bilaterally at aorto-femoral bypass earlier this year. Patient reports that since that surgery she's been working with physical therapy to increase ambulating. She reports that today she was working with her physical therapist in her home, she states that she was wearing weights and standing. She reports that upon standing she felt the urge to have a bowel movement and rushed to the restroom. Patient states that she was told by her physical therapist that she needs to slow down and asked for assistance however the patient was concerned that she was going to have a bowel movement so she continued to rash. She states that when she got into the bathroom she took a step sideways and lost her footing falling backwards and striking the back of her head on the bathtub. Patient reports that she did not lose consciousness. She felt an immediate pain in the back of her head a reached up and noticed that there was bleeding. Her physical therapist then made the decision call 911. Patient remained in a sitting position in her bathroom until EMS arrived and transported her to the emergency department. Patient's only complaint upon arrival is a mild headache as well as bleeding from the laceration in the back of her head. Patient is unsure when her tetanus was last updated, she is agreeable to having the tetanus vaccination today. Patient states she is on a daily baby aspirin but no other antiplatelet or anticoagulant medications. MD Complaint: fall -: minutes(s) Fall From: standing When Fall Occurred: 1 hour [employer] Fall Witnessed: no Place Fall Occurred: home Loss of Consciousness: none Prolonged Down Time?: no Symptoms Prior to Fall: none Location: head Severity: moderate Quality: dull Context: tripped/slipped Associated Symptoms: headache - Related Data Home Medications Medication Instructions Recorded Confirmed Atorvastatin [Lipitor] 40 mg PO HS 05/18/17 05/18/17 DULoxetine HCL [Cymbalta] 30 mg PO DAILY 05/18/17 05/18/17 Metoprolol Tartrate [Lopressor] 12.5 mg PO BID 05/18/17 05/18/17 Potassium Chloride [K-Tab ER] 10 meq PO DAILY 05/18/17 05/18/17 Allergies Allergy/AdvReac Type Severity Reaction Status Date / Time No Known Allergies Allergy Verified 05/18/17 18:26 Review of Systems ROS Statement: Those systems with pertinent positive or pertinent negative responses have been documented in the HPI. ROS Other: All systems not noted in ROS Statement are negative. Constitutional: Reports: weakness (Paralyzed) Eyes: Denies: eye pain, vision change ENT: Denies: dental pain Respiratory: Denies: cough, dyspnea Cardiovascular: Denies: chest pain, palpitations Endocrine: Denies: fatigue Gastrointestinal: Denies: abdominal pain, nausea, vomiting Genitourinary: Denies: urgency, dysuria Musculoskeletal: Denies: back pain Skin: Reports: change in color ([place] to right forearm) Neurological: Reports: headache, abnormal gait (Secondary to surgery, currently working with physical therapy to improve gait). Denies: numbness, paresthesias , confusion Psychiatric: Reports: anxiety. Denies: depression Hematological/Lymphatic: Denies: easy bleeding, easy bruising Past Medical History Past Medical History: No Reported History Additional Past Medical History / Comment(s): BRONCHITIS,ULCERATIVE COLITIS, ENDOMETREOSIS, CONSTIPATION, UTI, SHINGLES > 5 YEARS, OCC TINNITUS, "BORN WITH 10% RETINA LT EYE" History of Any Multi-Drug Resistant Organisms: None Reported Past Surgical History: Appendectomy, Bowel Resection, Hysterectomy, Tubal Ligation Additional Past Surgical History / Comment(s): "Stent RT GROIN", BARTHOLIN CYST REMOVED, TOTAL HX AND 4" OF SMALL INTESTINE REMOVED D/T ENDOMETREOSIS" Aortic bypass 2016 Past Anesthesia/Blood Transfusion Reactions: No Reported Reaction Past Psychological History: Depression Smoking Status: Former smoker Past Alcohol Use History: None Reported, Daily Past Drug Use History: None Reported - Past Family History Father Family Medical History: Cancer Additional Family Medical History / Comment(s): LUNG CANCER(SMOKED), BRAIN TUMOR REMOVED-HAD RADIATION [place] THEN HAD STROKE. Mother Family Medical History: Cancer Additional Family Medical History / Comment(s): COLON AND SKIN CANCER. ALSO HAD TB Brother(s) Additional Family Medical History / Comment(s): 1 BROTHER HAS MS, ANOTHER BROTHER FROM COMPLICATIONS FROM ETOH/SCHIZOPHRENIA General Exam Limitations: no limitations General appearance: alert, in no apparent distress Head exam: Present: other (2 cm laceration to left occiput) Eye exam: Present: PERRL, EOMI, other (Subconjunctival hematoma in the right eye ) Pupils: Absent: irregular, unequal, miosis, mydriatic ENT exam: Present: normal exam Neck exam: Present: normal inspection, full ROM. Absent: tenderness Respiratory exam: Present: normal lung sounds bilaterally. Absent: respiratory distress Cardiovascular Exam: Present: regular rate, normal rhythm GI/Abdominal exam: Present: soft. Absent: distended, tenderness, guarding, rebound, rigid Rectal exam: Present: deferred Extremities exam: Present: full ROM, other (contusion to right forearm) Back exam: Present: normal inspection Neurological exam: Present: alert, oriented X3 Psychiatric exam: Present: normal affect, normal mood Skin exam: Present: warm, dry, other (laceration to posterior scalp - approximately 2cm over left occiput) Course Vital Signs 05/18/17 05/18/17 17:42 19:36 Temperature 97.3 F L Pulse Rate 73 73 Respiratory 18 18 Rate Blood Pressure 140/75 124/58 O2 Sat by Pulse 97 97 Oximetry Procedures - Laceration Laceration #1 Consent Obtained: verbal consent Time Out Performed: Yes Indication: laceration Site: scalp Description: linear Depth: simple, single layer Pre-repair: wound explored, irrigated extensively, deep structures intact Additional Comments: 3 robyn Medical Decision Making - Medical Decision Making The patient was seen and evaluated, history was obtained from the patient and EMS Patient with a mechanical trip and fall backward striking her head on the bathtub. Patient did not have loss of consciousness. On a daily aspirin but denies other anticoagulant or antiplatelet medication Patient claims a headache since the fall, She has no focal neurologic deficits, no midline cervical spine tenderness, no evidence of intoxication, no distracting injuries. This time the patient's cervical spine is cleared via Nexus criteria CT of the brain and cervical spine were ordered for evaluation Tetanus vaccination ordered because patient is unsure what hurts was last updated Labs were ordered Head CT with no acute findings Labs with no significant change from previous Patient's had laceration was cleaned, irrigated and repaired with 3 robyn states that she lives in her mother's home, her mother's home 24 hours a day and can with her for the next 24 hours for observation. However her mother does not drive at night and patient is nonambulatory therefore will need an ambulance ride home. I offered the patient admission to the hospital for recurrent falls, however patient states she does not want to be admitted she doesn't feel that she requires admission at this time. She states that both of her falls in the past week have been well worked out with her physical therapist she feels that this is due to her physical therapist push eager to hard. She states that she feels safe at home and would like to be discharged home. S with the patient the patient's on aspirin have a increased risk of delayed bleeding and should she develop any worsening headache she needs call 911 immediately for transfer back to the hospital. I will order an ambulance ride home the patient is to be observed by her mother. Patient was advised to call 911 should she develop any worsening headache, confusion, nausea or vomiting. Patient was discharged home with it instructions on postconcussive symptoms as well as staple care. Patient's pertaining to care were answered to the best my ability patient was discharged home in stable condition. - Lab Data Result diagrams: 05/18/17 18:30 05/18/17 18:30 Lab Results 05/18/17 05/18/17 05/18/17 Range/Units 18:30 18:30 18:30 WBC 8.3 (3.8-10.6) k/uL RBC 3.70 L (3.80-5.40) m/uL Hgb 10.5 L (11.4-16.0) gm/dL Hct 34.9 (34.0-46.0) % MCV 94.4 (80.0-100.0) fL MCH 28.3 (25.0-35.0) pg MCHC 30.0 L (31.0-37.0) g/dL RDW 17.7 H (11.5-15.5) % Plt Count 320 (150-450) k/uL Neutrophils % 77 % Lymphocytes % 12 % Monocytes % 6 % Eosinophils % 3 % Basophils % 0 % Neutrophils # 6.4 (1.3-7.7) k/uL Lymphocytes # 1.0 (1.0-4.8) k/uL Monocytes # 0.5 (0-1.0) k/uL Eosinophils # 0.2 (0-0.7) k/uL Basophils # 0.0 (0-0.2) k/uL Hypochromasia Marked Anisocytosis Slight PT 12.3 H (9.0-12.0) sec INR 1.2 H (<1.2) APTT 23.4 (22.0-30.0) sec Sodium 138 (137-145) mmol/L Potassium 4.3 (3.5-5.1) mmol/L Chloride 108 H (98-107) mmol/L Carbon Dioxide 23 (22-30) mmol/L Anion Gap 7 mmol/L BUN 12 (7-17) mg/dL Creatinine 0.70 (0.52-1.04) mg/dL Est GFR (MDRD) Af Amer >60 (>60 ml/min/1.73 sqM) Est GFR (MDRD) Non-Af >60 (>60 ml/min/1.73 sqM) Glucose 81 (74-99) mg/dL Calcium 7.8 L (8.4-10.2) mg/dL Disposition Clinical Impression: Laceration of head Disposition: HOME SELF-CARE Condition: Good Instructions: Concussion (ED), Fall Prevention for Older Adults (ED), Diphtheria Tetanus and Pertussis Vaccine (ED), Post Concussion Syndrome (ED), Staple Care (ED) Referrals: Sarah Beth Vu MD [Primary Care Provider] - 1-2 days Time of Disposition: 20:15
[2017-05-18 19:04] LABS: Anisocytosis Slight; Basophils % (A) 0 %; CH 28.1; Eosinophils # (A) 0.2 k/uL (0-0.7); Eosinophils % (A) 3 %; HCT 34.9 % (34.0-46.0); HDW 2.61; HGB 10.5 gm/dL (11.4-16.0); Hypochromasia Marked; Luc # (Auto) 0.18; Luc % (Auto) 2; Lymphocytes % (A) 12 %; MCH 28.3 pg (25.0-35.0); MCV 94.4 fL (80.0-100.0); Mean Platelet Volume 7.1; Monocytes # (A) 0.5 k/uL (0-1.0); Monocytes % (A) 6 %; Neutrophils # (A) 6.4 k/uL (1.3-7.7); Neutrophils % (A) 77 %; RDW 17.7 % (11.5-15.5); WBC 8.3 k/uL (3.8-10.6); WBC (Perox) 8.34
[2017-05-18 19:20] LABS: Anion Gap 7 mmol/L; Blood Urea Nitrogen 12 mg/dL (7-17); Calcium 7.8 mg/dL (8.4-10.2); Carbon Dioxide 23 mmol/L (22-30); Chloride 108 mmol/L (98-107); Glucose 81 mg/dL (74-99); Non-African American GFR(MDRD) >60 (>60 ml/min/1.73 sqM); Potassium 4.3 mmol/L (3.5-5.1); Sodium 138 mmol/L (137-145)
[2017-05-18 19:36] LABS: INR 1.2 (<1.2); Partial Thromboplastin Time 23.4 sec (22.0-30.0); Prothrombin Time 12.3 sec (9.0-12.0)
[2017-05-18 19:38] VITALS: BP 124/58
--- NOTE | 2017-05-18 19:50 | CT ---
EXAMINATION TYPE: CT brain feng douglas DATE OF EXAM: 05/18/2017 COMPARISON: NONE HISTORY: Trip and fall, laceration left posterior scalp. CT DLP: 1675.00 mGycm Automated exposure control for dose reduction was used. TECHNIQUE: CT scan of the head and cervical spine are performed without contrast. FINDINGS: Consistent with the history, there is minimal subcutaneous emphysema posteriorly on the le ft, but there is no underlying skull fracture. There is no acute intracranial hemorrhage, mass, mass effect, definite new attenuation defect, or midline shift. The ventricles and sulci are within marco l limits in size. The globes are intact and the visualized sinuses are clear. Cervical spine is visualized in its entirety from C1 through upper thoracic levels and demonstrates s atisfactory alignment without evidence of acute fracture or dislocation. Prevertebral soft tissue ap pears within normal limits. The C1-C2 articulation is unremarkable. IMPRESSION: 1. There is no acute fracture or dislocation evident in the cervical spine. 2. No acute cranial/intracranial process.
== END 2017-05-18 21:58 | disposition home or self-care (01) ==
LOC: EC 17:40
DX: S01.01XA Laceration without foreign body of scalp, initial encounter (principal); F32.9 Major depressive disorder, single episode, unspecified; Z23 Encounter for immunization; Z87.891 Personal history of nicotine dependence; Z79.899 Other long term (current) drug therapy; W01.10XA Fall on same level from slipping, tripping and stumbling with subsequent striking against unspecified object, initial encounter; Y92.008 Other place in unspecified non-institutional (private) residence as the place of occurrence of the external cause
CPT/HCPCS: 12001; 36415; 70450; 72125; 80048; 85025; 85610; 85730; 90471; 90715; 99284

== ENCOUNTER 2017-10-02 11:57 | Inpatient (IN) | payer OTHER ==
[2017-10-02] MEDS ORDERED: MORPHINE SULFATE 4 MG/ML SYRINGE IVP STA (12:55)
[2017-10-02] MEDS ORDERED: PIPERACILLIN-TAZOBACTAM 3.375 GM in DEXTROSE/WATER 1 50ML.BAG IVPB STA (12:57)
--- NOTE | 2017-10-02 13:00 | ED ---
Wound/Laceration HPI <Fabián Rodriguez - Last Filed: 10/02/17 15:34> - General Source: patient, EMS, RN notes reviewed, old records reviewed Mode of arrival: EMS Limitations: no limitations <Tierney Whiting - Last Filed: 10/02/17 15:47> - General Chief Complaint: Wound/Laceration Stated Complaint: Breast Infection Time Seen by Provider: 10/02/17 12:30 - History of Present Illness Initial Comments: This patient is a 62-year-old female chief complaint of severe drainage and pain in her right breast. Patient reports that since May she had an area of firmness and erythema on the right breast. She reports that she was told to follow-up with but had never done so. She states that her breast is a become increasingly red and swollen throughout this time. She states it became acutely worse last week. She states that yesterday she noticed that she had some drainage on her shirt. She reported that there are 3 large holes underneath the right nipple and purulent drainage has been coming through this. Here she reports that it is odorous. Patient has a history of abdominal aortic bypass procedure and atherosclerotic disease. Patient reports that she had significant surgery done for this in April and then was in rehab. She reports that she when she got home she felt like she just did not want to come back to the hospital so she wanted to stay home as much as possible. Patient reports that she was concerned due to the amount of drainage and felt that she needed to be seen. She denies any history of breast cancer. She denies any family history of breast cancer. She's had mammograms in the past but does not remember the last time she's had one. (Tierney Whiting) - Related Data Home Medications Medication Instructions Recorded Confirmed Acetaminophen Tab [Tylenol Tab] 650 mg PO Q6H PRN 10/02/17 10/02/17 Allergies Allergy/AdvReac Type Severity Reaction Status Date / Time No Known Allergies Allergy Verified 10/02/17 12:41 Review of Systems ROS Other: All systems not noted in ROS Statement are negative. <Fabáin Rodriguez - Last Filed: 10/02/17 15:34> ROS Other: All systems not noted in ROS Statement are negative. <Tierney Whiting - Last Filed: 10/02/17 15:47> ROS Statement: Those systems with pertinent positive or pertinent negative responses have been documented in the HPI. Past Medical History Past Medical History: No Reported History Additional Past Medical History / Comment(s): ENDOMETREOSIS "BORN WITH 10% RETINA LT EYE" History of Any Multi-Drug Resistant Organisms: None Reported Past Surgical History: Appendectomy, Bowel Resection, Coronary Bypass/CABG, Hysterectomy, Tubal Ligation Additional Past Surgical History / Comment(s): "Stent RT GROIN", BARTHOLIN CYST REMOVED, TOTAL HX AND 4" OF SMALL INTESTINE REMOVED D/T ENDOMETREOSIS" Aortic bypass 2016 Past Anesthesia/Blood Transfusion Reactions: No Reported Reaction Past Psychological History: Depression Smoking Status: Former smoker Past Alcohol Use History: None Reported, Daily Past Drug Use History: None Reported - Past Family History Father Family Medical History: Cancer Additional Family Medical History / Comment(s): LUNG CANCER(SMOKED), BRAIN TUMOR REMOVED-HAD RADIATION [place] THEN HAD STROKE. Mother Family Medical History: Cancer Additional Family Medical History / Comment(s): COLON AND SKIN CANCER. ALSO HAD TB Brother(s) Additional Family Medical History / Comment(s): 1 BROTHER HAS MS, ANOTHER BROTHER FROM COMPLICATIONS FROM ETOH/SCHIZOPHRENIA <Tierney Whiting - Last Filed: 10/02/17 15:47> General Exam <Fabián Rodriguez - Last Filed: 10/02/17 15:34> Limitations: no limitations General appearance: alert, in no apparent distress Head exam: Present: atraumatic, normocephalic, normal inspection Eye exam: Present: normal appearance, PERRL, EOMI. Absent: scleral icterus, conjunctival injection, periorbital swelling ENT exam: Present: normal exam, mucous membranes moist Neck exam: Present: normal inspection. Absent: tenderness, meningismus, lymphadenopathy Respiratory exam: Present: normal lung sounds bilaterally, other (Patient has significant swelling, erythema surrounding the entire right breast. The lateral aspect of the breast is very firm. She has 3 very deep openings near the nipple with purulent drainage. ). Absent: respiratory distress, wheezes, rales, rhonchi, stridor Cardiovascular Exam: Present: regular rate, normal rhythm, normal heart sounds. Absent: systolic murmur, diastolic murmur, rubs, gallop, clicks GI/Abdominal exam: Present: soft, normal bowel sounds, other (Patient is a large scar over abdomen from previous bypass surgery.). Absent: distended, tenderness, guarding, rebound, rigid Extremities exam: Present: normal inspection, full ROM, normal capillary refill. Absent: tenderness, pedal edema, joint swelling, calf tenderness Back exam: Present: normal inspection Neurological exam: Present: alert, oriented X3, CN II-XII intact Psychiatric exam: Present: normal affect, normal mood Skin exam: Present: warm, dry, intact, normal color, erythema (Patient has significant erythema and induration over the right breast. Evidence of deep abscess with purulent drainage near the nipple.). Absent: rash <Tierney Whiting - Last Filed: 10/02/17 15:47> - General Exam Comments Initial Comments: This patient is a 62-year-old female. Patient appears anxious and is tearful. ( Tierney Whiting) Course <Fabián Rodriguez - Last Filed: 10/02/17 15:34> <Tierney Whiting - Last Filed: 10/02/17 15:47> Vital Signs 10/02/17 10/02/17 12:07 13:40 Temperature 97.8 F Pulse Rate 97 77 Respiratory 17 18 Rate Blood Pressure 140/67 133/66 O2 Sat by Pulse 99 100 Oximetry - Reevaluation(s) Reevaluation #1: 10/02/17 15:34 Patient reevaluated by myself, Dr. Rodriguez. Patient does have erythema to the majority of the right breast with induration. In addition there is open area with purulent discharge. Patient updated on results and plan. Case was discussed in detail with Dr. Ash, who will admit for hospital call. (Fabián Rodriguez ) Medical Decision Making - Lab Data Result diagrams: 10/02/17 13:30 10/02/17 13:30 <Fabián Rodriguez - Last Filed: 10/02/17 15:34> - Lab Data Result diagrams: 10/02/17 13:30 10/02/17 13:30 - Radiology Data Radiology results: report reviewed <Tierney Whiting - Last Filed: 10/02/17 15:47> - Medical Decision Making This is a 62-year-old female chief complaint of right breast infection. She noticed the area of redness starting in May but is become acutely worse over the last week. Yesterday started have some purulent drainage underneath the nipple. Patient's entire right breast is very red and swollen and tender. She has significant pus underneath the nipple. Patient has no fevers or chills. Patient had septic workup. Blood cultures obtained lactic acid obtained. BMP shows evidence of hypokalemia. Given oral replacement. We'll also do want IV replacement as well. Patient was started on IV Zosyn. Wound culture obtained. Ultrasound of the breast was performed results currently pending. (Tierney Whiting) - Lab Data Lab Results 10/02/17 10/02/17 10/02/17 Range/Units 13:30 13:30 13:30 WBC 10.2 (3.8-10.6) k/uL RBC 3.10 L (3.80-5.40) m/uL Hgb 10.2 L (11.4-16.0) gm/dL Hct 32.2 L (34.0-46.0) % MCV 104.0 H (80.0-100.0) fL MCH 33.0 (25.0-35.0) pg MCHC 31.8 (31.0-37.0) g/dL RDW 22.4 H (11.5-15.5) % Plt Count 443 (150-450) k/uL Neutrophils % 86 % Lymphocytes % 9 % Monocytes % 3 % Eosinophils % 2 % Basophils % 0 % Neutrophils # 8.7 H (1.3-7.7) k/uL Lymphocytes # 0.9 L (1.0-4.8) k/uL Monocytes # 0.3 (0-1.0) k/uL Eosinophils # 0.2 (0-0.7) k/uL Basophils # 0.0 (0-0.2) k/uL Polychromasia Present Anisocytosis Moderate Macrocytosis Marked PT (9.0-12.0) sec INR (<1.2) APTT (22.0-30.0) sec Sodium 139 (137-145) mmol/L Potassium 2.6 L* (3.5-5.1) mmol/L Chloride 103 (98-107) mmol/L Carbon Dioxide 23 (22-30) mmol/L Anion Gap 13 mmol/L BUN 11 (7-17) mg/dL Creatinine 0.70 (0.52-1.04) mg/dL Est GFR (MDRD) Af Amer >60 (>60 ml/min/1.73 sqM) Est GFR (MDRD) Non-Af >60 (>60 ml/min/1.73 sqM) Glucose 102 H (74-99) mg/dL Plasma Lactic Acid [place] 1.2 (0.7-2.0) mmol/L Calcium 9.1 (8.4-10.2) mg/dL Total Bilirubin 0.8 (0.2-1.3) mg/dL AST 24 (14-36) U/L ALT 14 (9-52) U/L Alkaline Phosphatase 110 (38-126) U/L Total Protein 7.2 (6.3-8.2) g/dL Albumin 3.4 L (3.5-5.0) g/dL 10/02/17 Range/Units 13:30 WBC (3.8-10.6) k/uL RBC (3.80-5.40) m/uL Hgb (11.4-16.0) gm/dL Hct (34.0-46.0) % MCV (80.0-100.0) fL MCH (25.0-35.0) pg MCHC (31.0-37.0) g/dL RDW (11.5-15.5) % Plt Count (150-450) k/uL Neutrophils % % Lymphocytes % % Monocytes % % Eosinophils % % Basophils % % Neutrophils # (1.3-7.7) k/uL Lymphocytes # (1.0-4.8) k/uL Monocytes # (0-1.0) k/uL Eosinophils # (0-0.7) k/uL Basophils # (0-0.2) k/uL Polychromasia Anisocytosis Macrocytosis PT 10.8 (9.0-12.0) sec INR 1.1 (<1.2) APTT 24.3 (22.0-30.0) sec Sodium (137-145) mmol/L Potassium (3.5-5.1) mmol/L Chloride (98-107) mmol/L Carbon Dioxide (22-30) mmol/L Anion Gap mmol/L BUN (7-17) mg/dL Creatinine (0.52-1.04) mg/dL Est GFR (MDRD) Af Amer (>60 ml/min/1.73 sqM) Est GFR (MDRD) Non-Af (>60 ml/min/1.73 sqM) Glucose (74-99) mg/dL Plasma Lactic Acid [place] (0.7-2.0) mmol/L Calcium (8.4-10.2) mg/dL Total Bilirubin (0.2-1.3) mg/dL AST (14-36) U/L ALT (9-52) U/L Alkaline Phosphatase (38-126) U/L Total Protein (6.3-8.2) g/dL Albumin (3.5-5.0) g/dL - Radiology Data Chest x-ray shows mild cardiomegaly without acute pulmonary process. (Tierney Whiting) Disposition <Fabián Rodriguez - Last Filed: 10/02/17 15:34> Time of Disposition: 15:46 <Tierney Whiting - Last Filed: 10/02/17 15:47> Clinical Impression: Abscess of right breast, Hypokalemia Disposition: ADMITTED IP TO THIS [facility] Condition: Stable Referrals: None,Stated [Primary Care Provider] - 1-2 days
[2017-10-02] MEDS ORDERED: SODIUM CHLORIDE 0.9% 1,000 ML IV ONE (13:07)
[2017-10-02] MEDS: SODIUM CHLORIDE 0.9% 1,000 ML IV SCH ×2 (13:37→23:42)
[2017-10-02 14:05] LABS: ALT 14 U/L (9-52); AST 24 U/L (14-36); Albumin 3.4 g/dL (3.5-5.0); Alkaline Phosphatase 110 U/L (38-126); Anion Gap 13 mmol/L; Blood Urea Nitrogen 11 mg/dL (7-17); Calcium 9.1 mg/dL (8.4-10.2); Carbon Dioxide 23 mmol/L (22-30); Chloride 103 mmol/L (98-107); Glucose 102 mg/dL (74-99); Sodium 139 mmol/L (137-145); Total Bilirubin 0.8 mg/dL (0.2-1.3); Total Protein 7.2 g/dL (6.3-8.2)
[2017-10-02 14:08] LABS: Anisocytosis Moderate; Basophils % (A) 0 %; Eosinophils # (A) 0.2 k/uL (0-0.7); Eosinophils % (A) 2 %; HCT 32.2 % (34.0-46.0); HGB 10.2 gm/dL (11.4-16.0); Lymphocytes # (A) 0.9 k/uL (1.0-4.8); Lymphocytes % (A) 9 %; MCHC 31.8 g/dL (31.0-37.0); Macrocytosis Marked; Mean Platelet Volume 8.4; Monocytes # (A) 0.3 k/uL (0-1.0); Monocytes % (A) 3 %; Neutrophils # (A) 8.7 k/uL (1.3-7.7); Neutrophils % (A) 86 %; Platelet Count 443 k/uL (150-450); RDW 22.4 % (11.5-15.5); WBC 10.2 k/uL (3.8-10.6)
[2017-10-02 14:14] LABS: Potassium 2.6 mmol/L (3.5-5.1)
--- NOTE | 2017-10-02 14:14 | XR ---
EXAMINATION TYPE: XR chest 2V DATE OF EXAM: 10/02/2017 COMPARISON: Prior chest x-ray December 05, 2015. HISTORY: Right breast abscess and pain. TECHNIQUE: Frontal and lateral views of the chest are obtained. FINDINGS: There is no focal air space opacity, pleural effusion, or pneumothorax seen. The cardiac silhouette size is now mildly enlarged. The osseous structures are intact. IMPRESSION: Mild cardiomegaly without acute pulmonary process.
[2017-10-02 14:15] LABS: INR 1.1 (<1.2); Partial Thromboplastin Time 24.3 sec (22.0-30.0); Prothrombin Time 10.8 sec (9.0-12.0)
[2017-10-02] MEDS ORDERED: POTASSIUM CHLORIDE ER 20 MEQ TAB.ER PO STA (14:19)
[2017-10-02 14:39] LABS: Polychromasia Present
[2017-10-02] MEDS ORDERED: ACETAMINOPHEN TAB 325 MG TAB PO PRN (15:52)
[2017-10-02] MEDS ORDERED: MORPHINE SULFATE 4 MG/ML SYRINGE IV PRN (15:52)
[2017-10-02] MEDS ORDERED: IBUPROFEN 400 MG TAB PO PRN (15:52)
[2017-10-02] MEDS ORDERED: ONDANSETRON 4 MG/2 ML VIAL IVP PRN (15:52)
[2017-10-02] MEDS ORDERED: NALOXONE 0.4 MG/ML 1 ML VIAL IV PRN (15:52)
[2017-10-02] MEDS ORDERED: KETOROLAC 30 MG/ML 1 ML VIAL IVP PRN (15:52)
--- NOTE | 2017-10-02 16:25 | P.HPIM ---
History of Present Illness H&P Date: 10/02/17 Chief Complaint: Right breast redness swelling and drainage 62-year-old female chief complaint of severe drainage and redness and swelling in her right breast. Patient reports that she first noticed a lump in her right breast this past May 2017 She reports that she was told to follow -up with but had never done so. She states that her breast first began getting redred and swollen approximately a month ago. She states it became acutely worse 3 days ago when she notice 3 lesions scattered between 3 and 6 oclock positions underneath the right nipple on the border of her areola With some drainage that began yesterday. . Here she reports that it is odorous. She denies any subjective fevers chills or night sweats she does report approximately 60 pound weight loss since her abdominal surgery last year. Patient has a history of abdominal aortic bypass procedure and atherosclerotic disease. Patient reports that she had significant surgery done for this in April and then was in rehab. She reports that she when she got home she felt like she just did not want to come back to the hospital so she wanted to stay home as much as possible. Patient reports that she was concerned due to the amount of drainage and felt that she needed to be seen. She denies any history of breast cancer. She denies any family history of breast cancer. She' s had mammograms in the past but does not remember the last time she's had one. In the ER the patient had a breast ultrasound results are pending, review of her labs indicate a profound hypokalemia at 2.6 and a hemoglobin and hematocrit of 10.2 and 32.2 respectively Review of Systems All other 12 point review of systems are negative except for HPI Past Medical History Past Medical History: No Reported History Additional Past Medical History / Comment(s): ENDOMETREOSIS "BORN WITH 10% RETINA LT EYE" History of Any Multi-Drug Resistant Organisms: None Reported Past Surgical History: Appendectomy, Bowel Resection, Coronary Bypass/CABG, Hysterectomy, Tubal Ligation Additional Past Surgical History / Comment(s): "Stent RT GROIN", BARTHOLIN CYST REMOVED, TOTAL HX AND 4" OF SMALL INTESTINE REMOVED D/T ENDOMETREOSIS" Aortic bypass 2016 Past Anesthesia/Blood Transfusion Reactions: No Reported Reaction Past Psychological History: Depression Smoking Status: Former smoker Past Alcohol Use History: None Reported, Daily Past Drug Use History: None Reported - Past Family History Father Family Medical History: Cancer Additional Family Medical History / Comment(s): LUNG CANCER(SMOKED), BRAIN TUMOR REMOVED-HAD RADIATION [place] THEN HAD STROKE. Mother Family Medical History: Cancer Additional Family Medical History / Comment(s): COLON AND SKIN CANCER. ALSO HAD TB Brother(s) Additional Family Medical History / Comment(s): 1 BROTHER HAS MS, ANOTHER BROTHER FROM COMPLICATIONS FROM ETOH/SCHIZOPHRENIA Medications and Allergies Home Medications Medication Instructions Recorded Confirmed Type Acetaminophen Tab [Tylenol Tab] 650 mg PO Q6H PRN 10/02/17 10/02/17 History Allergies Allergy/AdvReac Type Severity Reaction Status Date / Time No Known Allergies Allergy Verified 10/02/17 12:41 Physical Exam Vitals: Vital Signs Temp Pulse Resp BP Pulse Ox 10/02/17 15:48 81 18 144/65 100 10/02/17 13:40 77 18 133/66 100 10/02/17 12:07 97.8 F 97 17 140/67 99 Intake and Output 10/02/17 10/02/17 10/02/17 06:59 14:59 22:59 Other: Weight 68.039 kg Patient Weight 10/03/17 06:59 Weight 68.039 kg Constitutional: No acute distress, conversant, pleasant Eyes: Anicteric sclerae, moist conjunctiva, no lid-lag, PERRLA ENMT: NC/AT,Oropharynx clear, no erythema, exudates, several missing teeth poor dentition Neck:Supple, FROM, no masses, or JVD, No carotid bruits; No thyromegaly Lungs: Clear to auscultation, Clear to percussion, Normal respiratory effort, no accessory muscle use Cardiovascular: Heart regular in rate and rhythm, No murmurs, gallops, or rubs no peripheral edema Abdominal: Soft Nontender, nom distended, no guarding, no rebound or rigidity, Normoactive bowel sounds No hepatomegaly, No splenomegaly, No palpable mass No abdominal wall hernia noted Skin: Right breast erythema induration with purulent drainage from lesions on the circumference of the areola distributed between 3 o clock to 6 o clock Extremities:No digital cyanosis No clubbing, Pedal pulses intact and symmetrical Radial pulses intact and symmetrical Normal gait and station, No calf tenderness Psychiatric: Alert and oriented to person, place and time, Appropriate affect Intact judgement Neuro: Muscles Strength 5/5 in all 4 extremities, Sensation to light touch grossly present throughout, Cranial nerves II-XII grossly intact. No focal sensory deficits Results CBC & Chem 7: 10/02/17 13:30 10/02/17 13:30 Labs: Abnormal Lab Results - Last 24 Hours (Table) 10/02/17 10/02/17 Range/Units 13:30 13:30 RBC 3.10 L (3.80-5.40) m/uL Hgb 10.2 L (11.4-16.0) gm/dL Hct 32.2 L (34.0-46.0) % MCV 104.0 H (80.0-100.0) fL RDW 22.4 H (11.5-15.5) % Neutrophils # 8.7 H (1.3-7.7) k/uL Lymphocytes # 0.9 L (1.0-4.8) k/uL Potassium 2.6 L* (3.5-5.1) mmol/L Glucose 102 H (74-99) mg/dL Albumin 3.4 L (3.5-5.0) g/dL Assessment and Plan (1) Abscess of right breast Current Visit: Yes Status: Acute Code(s): N61.1 - ABSCESS OF THE BREAST AND NIPPLE SNOMED Code(s): 12079396 (2) Hypokalemia Current Visit: Yes Status: Acute Code(s): E87.6 - HYPOKALEMIA SNOMED Code( s): 72077597 Plan: The patient is a 62-year-old female that is admitted for right breast abscess anticipated greater than 2 midnight stay. The patient is currently not septic and is hemodynamically stable without leukocytosis or fever. The right breast ultrasound is pending she has been initiated on empiric IV antibiotics with Zosyn and vancomycin. There is concern for possible inflammatory breast cancer, we will plan to consult general surgery Dr. Derrek Ford for further recommendations patient was likely need I&D with wound culture, and possibly biopsy and lumpectomy if indicated. We'll replace her potassium and continue to follow her clinical course.
[2017-10-02] MEDS ORDERED: VANCOMYCIN IV PER PHARMACY 1 EACH MISC MISCELLANE PRN (16:27)
[2017-10-02] MEDS: POTASSIUM CHLORIDE 10 MEQ in SODIUM CHLORIDE 0.9% 100 ML IVPB SCH ×2 (16:49→17:58)
[2017-10-02] MEDS: VANCOMYCIN 1,500 MG in SODIUM CHLORIDE 0.9% 250 ML IVPB SCH (19:02)
[2017-10-02] MEDS: PIPERACILLIN-TAZOBACTAM 3.375 GM in DEXTROSE/WATER 1 50ML.BAG IVPB SCH (23:37)
[2017-10-03] MEDS: VANCOMYCIN 1,500 MG in SODIUM CHLORIDE 0.9% 250 ML IVPB SCH ×2 (05:38→16:54)
[2017-10-03 07:37] LABS: Anisocytosis Moderate; Basophils % (A) 0 %; Eosinophils # (A) 0.3 k/uL (0-0.7); Eosinophils % (A) 4 %; HCT 28.7 % (34.0-46.0); Hypochromasia Moderate; Lymphocytes % (A) 14 %; MCH 32.4 pg (25.0-35.0); MCHC 30.2 g/dL (31.0-37.0); MCV 107.1 fL (80.0-100.0); Macrocytosis Marked; Mean Platelet Volume 8.5; Monocytes # (A) 0.3 k/uL (0-1.0); Monocytes % (A) 4 %; Neutrophils # (A) 5.4 k/uL (1.3-7.7); Neutrophils % (A) 76 %; Platelet Count 390 k/uL (150-450); RBC 2.67 m/uL (3.80-5.40); RDW 22.3 % (11.5-15.5); WBC 7.1 k/uL (3.8-10.6)
[2017-10-03 07:42] LABS: HGB 8.7 gm/dL (11.4-16.0)
[2017-10-03 07:44] LABS: Anion Gap 7 mmol/L; Blood Urea Nitrogen 6 mg/dL (7-17); Calcium 8.1 mg/dL (8.4-10.2); Carbon Dioxide 22 mmol/L (22-30); Chloride 114 mmol/L (98-107); Glucose 88 mg/dL (74-99); Sodium 143 mmol/L (137-145)
[2017-10-03 07:48] LABS: Potassium 2.9 mmol/L (3.5-5.1)
[2017-10-03] MEDS ORDERED: POTASSIUM BICARB-CITRIC ACID 25 MEQ TABLET.EFF PO STA (08:13)
[2017-10-03] MEDS ORDERED: HEPARIN SODIUM,PORCINE 5,000 UNIT/ML 1 ML VIAL SQ ONE (09:44)
--- NOTE | 2017-10-03 09:44 | P.GSCN ---
History of Present Illness Consult date: 10/03/17 Reason for Consult: Draining abscess right breast History of present illness: The patient is a 62-year-old white female who states that she presented to the hospital secondary to a swollen right breast. Her history is significant for the fact that she underwent aortic bypass last year after which she developed a wound problem. She was in a fpc following this and then was released several months ago to her mother's home where she has been followed for complications related to wound healing for the aortic bypass. In that time. She noted that her right breast began to become swollen and firm and red. Recently she began having drainage from the right breast in an area where the the swollen skin broke open. She presented to the hospital with swelling and drainage from the right breast. She states she is uncertain as to the last time she had a mammogram but it is been many many years ago. Family history: Breast cancer: Negative Prostate cancer maternal grandfather Menstrual periods: 12 Pregnancies: Tube or miscarriage no live births Menopause: Hysterectomy at 44 secondary to endometriosis Past surgical history: Aortic bypass on Groins stents Total hysterectomy Bartholin's cyst. Past medical history: Hypertension ALLERGIES: Negative Review of systems: HEENT tinnitus Lungs: Bronchitis she smoked was stopped in 2011 Heart: Negative GI: Negative : Negative Vascular disease. Aorto femoral bypass grafts Review of Systems - Constitutional Reports as per HPI - EENT Ears: bilateral: tinnitus - Breasts Breasts Comment(s): Right breast swollen erythematous and draining purulent material - Cardiovascular Reports as per HPI - Respiratory Reports as per HPI - Gastrointestinal Reports as per HPI - Genitourinary Genitourinary: Reports as per HPI - Musculoskeletal Reports as per HPI - Integumentary Integumentary Comment(s): Open abscess right breast not fully drained Past Medical History Past Medical History: No Reported History, Vascular Disorder Additional Past Medical History / Comment(s): ENDOMETREOSIS "BORN WITH 10% RETINA LT EYE" History of Any Multi-Drug Resistant Organisms: None Reported Past Surgical History: Appendectomy, Bowel Resection, Coronary Bypass/CABG, Hysterectomy, Tubal Ligation Additional Past Surgical History / Comment(s): "Stent RT GROIN", BARTHOLIN CYST REMOVED, TOTAL HX AND 4" OF SMALL INTESTINE REMOVED D/T ENDOMETREOSIS" Aortic bypass 2016 Past Anesthesia/Blood Transfusion Reactions: No Reported Reaction Past Psychological History: Depression Additional Psychological History / Comment(s): PT ONLY DRINNKS OCCASIONALLY NOW. PST ETOH ABUSE Smoking Status: Never smoker Past Alcohol Use History: None Reported, Daily Additional Past Alcohol Use History / Comment(s): HSITORY OF PINT TO PINT AND A HALF OF SCHNAPPS A DAY. STARTED SMOKING AT AGE 16(1971), SMOKED 1 PPD, QUIT 2011 Past Drug Use History: None Reported - Past Family History Father Family Medical History: Cancer Additional Family Medical History / Comment(s): LUNG CANCER(SMOKED), BRAIN TUMOR REMOVED-HAD RADIATION [place] THEN HAD STROKE. Mother Family Medical History: Cancer Additional Family Medical History / Comment(s): COLON AND SKIN CANCER. ALSO HAD TB Brother(s) Additional Family Medical History / Comment(s): 1 BROTHER HAS MS, ANOTHER BROTHER FROM COMPLICATIONS FROM ETOH/SCHIZOPHRENIA Medications and Allergies Home Medications Medication Instructions Recorded Confirmed Type Acetaminophen Tab [Tylenol Tab] 650 mg PO Q6H PRN 10/02/17 10/02/17 History Allergies Allergy/AdvReac Type Severity Reaction Status Date / Time No Known Allergies Allergy Verified 10/02/17 12:41 Surgical - Exam Vital Signs Temp Pulse Resp BP Pulse Ox 97.8 F 97 17 140/67 99 10/02/17 12:07 10/02/17 12:07 10/02/17 12:07 10/02/17 12:07 10/02/17 12:07 - General well developed, moderate distress - Eyes normal ocular movement - ENT normal nares, no hearing loss - Neck no masses, trachea midline, no lymphadectomy, no venous distension - Respiratory normal expansion, normal respiratory effort, clear to auscultation - Cardiovascular Rhythm: regular Heart Sounds: normal: S1, S2 - Abdomen Abdomen: soft, bowel sounds - Integumentary right Breasts large abscess with erythema firmness in the lower aspect of the breast with drainage from the upper inner aspect of the breast left breast no dominant masses or nodules of concern some mild fullness in the lateral lower aspect near her axillary adenopathy of concern bilaterally - Psychiatric oriented to time, oriented to person, oriented to place, speech is normal Results - Labs 10/03/17 06:53 10/03/17 06:53 Abnormal Lab Results - Last 24 Hours (Table) 10/02/17 10/02/17 10/03/17 Range/Units 13:30 13:30 06:53 RBC 3.10 L 2.67 L (3.80-5.40) m/uL Hgb 10.2 L 8.7 L D (11.4-16.0) gm/dL Hct 32.2 L 28.7 L (34.0-46.0) % MCV 104.0 H 107.1 H (80.0-100.0) fL MCHC 30.2 L (31.0-37.0) g/dL RDW 22.4 H 22.3 H (11.5-15.5) % Neutrophils # 8.7 H (1.3-7.7) k/uL Lymphocytes # 0.9 L (1.0-4.8) k/uL Potassium 2.6 L* (3.5-5.1) mmol/L Chloride (98-107) mmol/L BUN (7-17) mg/dL Glucose 102 H (74-99) mg/dL Calcium (8.4-10.2) mg/dL Albumin 3.4 L (3.5-5.0) g/dL 10/03/17 Range/Units 06:53 RBC (3.80-5.40) m/uL Hgb (11.4-16.0) gm/dL Hct (34.0-46.0) % MCV (80.0-100.0) fL MCHC (31.0-37.0) g/dL RDW (11.5-15.5) % Neutrophils # (1.3-7.7) k/uL Lymphocytes # (1.0-4.8) k/uL Potassium 2.9 L* (3.5-5.1) mmol/L Chloride 114 H (98-107) mmol/L BUN 6 L (7-17) mg/dL Glucose (74-99) mg/dL Calcium 8.1 L (8.4-10.2) mg/dL Albumin (3.5-5.0) g/dL Microbiology - Last 24 Hours (Table) 10/02/17 13:30 Gram Stain - Preliminary Breast - Right Wound Culture - Preliminary Diabetes panel 10/02/17 10/03/17 Range/Units 13:30 06:53 Sodium 139 143 (137-145) mmol/L Potassium 2.6 L* 2.9 L* (3.5-5.1) mmol/L Chloride 103 114 H (98-107) mmol/L Carbon Dioxide 23 22 (22-30) mmol/L BUN 11 6 L (7-17) mg/dL Creatinine 0.70 0.70 (0.52-1.04) mg/dL Glucose 102 H 88 (74-99) mg/dL Calcium 9.1 8.1 L (8.4-10.2) mg/dL AST 24 (14-36) U/L ALT 14 (9-52) U/L Alkaline Phosphatase 110 (38-126) U/L Total Protein 7.2 (6.3-8.2) g/dL Albumin 3.4 L (3.5-5.0) g/dL Calcium panel 10/02/17 10/03/17 Range/Units 13:30 06:53 Calcium 9.1 8.1 L (8.4-10.2) mg/dL Albumin 3.4 L (3.5-5.0) g/dL Pituitary panel 10/02/17 10/03/17 Range/Units 13:30 06:53 Sodium 139 143 (137-145) mmol/L Potassium 2.6 L* 2.9 L* (3.5-5.1) mmol/L Chloride 103 114 H (98-107) mmol/L Carbon Dioxide 23 22 (22-30) mmol/L BUN 11 6 L (7-17) mg/dL Creatinine 0.70 0.70 (0.52-1.04) mg/dL Glucose 102 H 88 (74-99) mg/dL Calcium 9.1 8.1 L (8.4-10.2) mg/dL Adrenal panel 10/02/17 10/03/17 Range/Units 13:30 06:53 Sodium 139 143 (137-145) mmol/L Potassium 2.6 L* 2.9 L* (3.5-5.1) mmol/L Chloride 103 114 H (98-107) mmol/L Carbon Dioxide 23 22 (22-30) mmol/L BUN 11 6 L (7-17) mg/dL Creatinine 0.70 0.70 (0.52-1.04) mg/dL Glucose 102 H 88 (74-99) mg/dL Calcium 9.1 8.1 L (8.4-10.2) mg/dL Total Bilirubin 0.8 (0.2-1.3) mg/dL AST 24 (14-36) U/L ALT 14 (9-52) U/L Alkaline Phosphatase 110 (38-126) U/L Total Protein 7.2 (6.3-8.2) g/dL Albumin 3.4 L (3.5-5.0) g/dL Assessment and Plan Plan: Impression/plan: 1. 1. Draining abscess incompletely drained right breast 2. History of vascular disease 3. History of hypertension 4. Anemia 5. Hypokalemia Plan: 1. IV antibiotics 2. I&D of breast abscess with biopsy Patient understands risks and benefits and wishes to proceed biopsy will be obtained at the time of the incision and drainage, patient understands that if this results in bleeding that may require resection of this area of the breast.
[2017-10-03] MEDS: PIPERACILLIN-TAZOBACTAM 3.375 GM in DEXTROSE/WATER 1 50ML.BAG IVPB SCH ×3 (09:45→23:36)
[2017-10-03] MEDS ORDERED: HYDROmorphone (PF) 1 MG/ML ONE (10:41)
[2017-10-03] MEDS ORDERED: MIDAZOLAM 2 MG/2 ML VIAL ONE (10:41)
[2017-10-03] MEDS ORDERED: PROPOFOL 10 MG/ML 20 ML VIAL IV ONE (10:41)
[2017-10-03] MEDS ORDERED: LIDOCAINE 1% INJ 10MG/ML (20 ML MDV) ONE (10:41)
[2017-10-03] MEDS ORDERED: SUCCINYLCHOLINE CHLORIDE 100 MG/5 ML SYR IV ONE (10:41)
[2017-10-03] MEDS ORDERED: MAGNESIUM SULFATE 4 MEQ/ML 2 ML VIAL ONE (10:41)
[2017-10-03] MEDS ORDERED: DEXAMETHASONE SOD PHOS (MDV) 100 MG/10 ML VIAL ONE (10:41)
[2017-10-03] MEDS ORDERED: ONDANSETRON 4 MG/2 ML VIAL ONE (10:41)
[2017-10-03] MEDS ORDERED: POTASSIUM CHLORIDE 20 MEQ/100 ML BAG IVPB ONE (10:41)
[2017-10-03] MEDS ORDERED: fentaNYL (PF) 50 MCG/ML 2 ML AMP ONE (10:41)
[2017-10-03] MEDS ORDERED: IV FLUID CONTINUATION 900 ML IV ONE (10:42)
[2017-10-03] MEDS ORDERED: HYDROmorphone 0.5 MG/0.5 ML SYRINGE IVP ONE (11:18)
--- NOTE | 2017-10-03 12:03 | P.OP ---
Date of Procedure: 10/03/17 Preoperative Diagnosis: right breast abcess/mass Postoperative Diagnosis: Same Procedure(s) Performed: Incision and drainage of large right breast abscess as well as debridement of necrotic tissue Anesthesia: KEVIN Surgeon: Mimi Jung Estimated Blood Loss (ml): 25 IV fluids (ml): 900 Pathology: other (Necrotic breast tissue) Condition: stable Disposition: PACU Indications for Procedure: Erythematous large mass right breast with a drainage of purulent substance Operative Findings: Large right breast abscess with necrotic breast tissue, possible tumor Description of Procedure: The patient was taken to the operating room and following induction of general anesthesia the right breast was prepped and draped in a sterile fashion. A portion of the skin in the inner upper quadrant areas as well as near the periareolar area was necrotic. This area was opened and the skin was debrided. Upon entering the breast parenchyma a large cavity was identified with dense necrotic tissue lining the cavity. Some of the necrotic breast tissue was able to be easily lifted out without any dissection. The surface of the necrotic cavity was very hemorrhagic. Debridement of the cavity was performed using the Harmonic scalpel. This was followed by irrigation with 3 L of fluid. After we were assured that hemostasis was attained a portion of the skin incision was closed using a 3-0 nylon suture. The wound was however left widely open and the wound was packed using 2 Curlex. The size of the cavity was 10 x 15 cm. Cultures were obtained prior to any irrigation. At the end of the case all instrument and sponge counts were correct. The patient tolerated the procedure in stable condition.
[2017-10-03] MEDS: MAGNESIUM SULFATE-D5W PMX 1 GM in DEXTROSE/WATER 1 100ML.BAG IVPB SCH ×2 (12:32→13:39)
[2017-10-03] MEDS: POTASSIUM CHLORIDE 20 MEQ in SODIUM CHLORIDE 0.9% 100 ML IVPB SCH ×2 (13:40→13:41)
[2017-10-03] MEDS: PANTOPRAZOLE 40 MG/10 ML VIAL IV SCH (13:40)
[2017-10-03] MEDS: SODIUM CHLORIDE 0.9% 1,000 ML IV SCH ×2 (13:42→22:01)
[2017-10-03 15:01] LABS: Anion Gap 12 mmol/L; Blood Urea Nitrogen 5 mg/dL (7-17); Calcium 8.2 mg/dL (8.4-10.2); Carbon Dioxide 20 mmol/L (22-30); Chloride 114 mmol/L (98-107); Glucose 120 mg/dL (74-99); Magnesium 2.6 mg/dL (1.6-2.3); Potassium 3.1 mmol/L (3.5-5.1); Sodium 146 mmol/L (137-145)
--- NOTE | 2017-10-03 17:14 | P.PN ---
Subjective Progress Note Date: 10/03/17 Patient recently returned from the OR where she had an I&D done by Dr. Derrek Ford, reports that her pain is minimal. Also reports that she is pretty anxious , in no acute events overnight Objective - Vital Signs Vital signs: Vital Signs Temp 96.7 F L 10/03/17 15:00 Pulse 73 10/03/17 15:00 Resp 16 10/03/17 15:00 BP 120/71 10/03/17 15:00 Pulse Ox 100 10/03/17 15:00 Intake & Output 10/02/17 10/03/17 10/03/17 18:59 06:59 18:59 Intake Total 200 2599 900 Output Total 25 Balance 200 2599 875 Weight 68.039 kg Intake: IV 900 Intake, IV Titration 2599 Amount Piperacillin-Tazobactam 3 50 .375 gm In Dextrose/Water 1 50ml.bag @ 12.5 mls/hr IVPB ONCE [facility] Rx#: [id number] Piperacillin-Tazobactam 3 100 .375 gm In Dextrose/Water 1 50ml.bag @ 12.5 mls/hr IVPB Q8HR [facility] Rx#: [id number] Potassium Chloride 10 meq 100 In Sodium Chloride 0.9% 100 ml @ 105 mls/hr IVPB Q1H [facility] Rx#:[id number] Sodium Chloride 0.9% 1, 1100 000 ml @ 100 mls/hr IV . Q10H [facility] Rx#:[id number] Sodium Chloride 0.9% 1, 999 000 ml @ 999 mls/hr IV . Q1H1M [facility] Rx#:[id number] Vancomycin 1,500 mg In 250 Sodium Chloride 0.9% 250 ml @ 125 mls/hr IVPB Q12HR@0600,1800 [facility] Rx#: [id number] Oral 200 Output: Estimated Blood Loss 25 Other: Voiding Method Toilet # Voids 1 2 # Bowel Movements 1 3 - Exam Constitutional: No acute distress, conversant, pleasant Eyes: Anicteric sclerae, moist conjunctiva, no lid-lag, PERRLA ENMT: NC/AT,Oropharynx clear, no erythema, exudates Neck:Supple, FROM, no masses, or JVD, No carotid bruits; No thyromegaly Lungs: Clear to auscultation, Clear to percussion, Normal respiratory effort, no accessory muscle use Cardiovascular: Heart regular in rate and rhythm, No murmurs, gallops, or rubs no peripheral edema Abdominal: Soft Nontender, nom distended, no guarding, no rebound or rigidity, Normoactive bowel sounds No hepatomegaly, No splenomegaly, No palpable mass No abdominal wall hernia noted Skin: Normal temperature, tone, texture, turgor, No induration No subcutaneous nodules, right dressing brought clean dry and intact Extremities:No digital cyanosis No clubbing, Pedal pulses intact and symmetrical Radial pulses intact and symmetrical Normal gait and station, No calf tenderness Psychiatric: Alert and oriented to person, place and time, Appropriate affect Intact judgement Neuro: Muscles Strength 5/5 in all 4 extremities, Sensation to light touch grossly present throughout, Cranial nerves II-XII grossly intact. No focal sensory deficits - Labs CBC & Chem 7: 10/03/17 06:53 10/03/17 14:16 Labs: Abnormal Lab Results - Last 24 Hours (Table) 10/03/17 10/03/17 10/03/17 Range/Units 06:53 06:53 14:16 RBC 2.67 L (3.80-5.40) m/uL Hgb 8.7 L D (11.4-16.0) gm/dL Hct 28.7 L (34.0-46.0) % MCV 107.1 H (80.0-100.0) fL MCHC 30.2 L (31.0-37.0) g/dL RDW 22.3 H (11.5-15.5) % Sodium 146 H (137-145) mmol/L Potassium 2.9 L* 3.1 L (3.5-5.1) mmol/L Chloride 114 H 114 H (98-107) mmol/L Carbon Dioxide 20 L (22-30) mmol/L BUN 6 L 5 L (7-17) mg/dL Glucose 120 H (74-99) mg/dL Calcium 8.1 L 8.2 L (8.4-10.2) mg/dL Magnesium 2.6 H (1.6-2.3) mg/dL Microbiology - Last 24 Hours (Table) 10/03/17 12:45 Anaerobic Culture - Preliminary Breast - Right 10/03/17 12:45 Wound Culture - Preliminary Breast - Right 10/02/17 13:30 Blood Culture - Preliminary Blood No Growth after 24 hours 10/02/17 13:30 Gram Stain - Preliminary Breast - Right Wound Culture - Preliminary Gram Neg Bacilli Assessment and Plan (1) Abscess of right breast Narrative/Plan: * Patient afebrile without leukocytosis, status post I&D and debridement of necrotic breast tissue * Initial wound preliminary cultures growing gram-negative bacilli await final cultures and sensitivities * Continue empiric IV antibiotic regimen with Zosyn and vancomycin Current Visit: Yes Status: Acute Code(s): N61.1 - ABSCESS OF THE BREAST AND NIPPLE SNOMED Code(s): 73042310 (2) Hypokalemia Narrative/Plan: * Continue potassium replacement protocol recheck potassium Current Visit: Yes Status: Acute Code(s): E87.6 - HYPOKALEMIA SNOMED Code( s): 13004100
[2017-10-04] MEDS ORDERED: VANCOMYCIN TROUGH DUE 1 EACH MISC MISCELLANE ONE (05:00)
[2017-10-04] MEDS: SODIUM CHLORIDE 0.9% 1,000 ML IV SCH ×2 (05:03→15:46)
[2017-10-04 05:37] LABS: Anisocytosis Moderate; Basophils % (A) 0 %; Eosinophils # (A) 0.1 k/uL (0-0.7); Eosinophils % (A) 1 %; HCT 28.8 % (34.0-46.0); HGB 8.5 gm/dL (11.4-16.0); Hypochromasia Marked; Lymphocytes # (A) 0.6 k/uL (1.0-4.8); Lymphocytes % (A) 6 %; MCH 32.4 pg (25.0-35.0); MCHC 29.7 g/dL (31.0-37.0); MCV 109.4 fL (80.0-100.0); Mean Platelet Volume 8.6; Monocytes # (A) 0.3 k/uL (0-1.0); Monocytes % (A) 3 %; Neutrophils # (A) 8.9 k/uL (1.3-7.7); Neutrophils % (A) 89 %; Platelet Count 376 k/uL (150-450); RBC 2.63 m/uL (3.80-5.40); RDW 22.5 % (11.5-15.5)
[2017-10-04 05:39] LABS: Macrocytosis Marked
[2017-10-04 05:50] LABS: Anion Gap 8 mmol/L; Blood Urea Nitrogen 8 mg/dL (7-17); Carbon Dioxide 20 mmol/L (22-30); Chloride 115 mmol/L (98-107); Glucose 133 mg/dL (74-99); Potassium 3.9 mmol/L (3.5-5.1); Sodium 143 mmol/L (137-145)
[2017-10-04] MEDS: VANCOMYCIN 1,500 MG in SODIUM CHLORIDE 0.9% 250 ML IVPB SCH (06:08)
[2017-10-04] MEDS: PANTOPRAZOLE 40 MG/10 ML VIAL IV SCH (07:53)
[2017-10-04] MEDS: PIPERACILLIN-TAZOBACTAM 3.375 GM in DEXTROSE/WATER 1 50ML.BAG IVPB SCH ×2 (07:53→17:54)
[2017-10-04] MEDS: MORPHINE SULFATE 4 MG/ML SYRINGE IVP PRN (11:32)
--- NOTE | 2017-10-04 11:55 | P.PN ---
Subjective Progress Note Date: 10/04/17 Patient is postop day #1 from incision and drainage of large right breast abscess. At this time she is doing well without complaints. Her white blood cell count today is 10 and her hemoglobin is 8.5. Objective - Vital Signs Vital signs: Vital Signs Temp 97.3 F L 10/04/17 07:00 Pulse 75 10/04/17 07:00 Resp 16 10/04/17 07:00 BP 109/71 10/04/17 07:00 Pulse Ox 97 10/04/17 07:00 Intake & Output 10/03/17 10/04/17 10/04/17 18:59 06:59 18:59 Intake Total 900 550 Output Total 25 Balance 875 550 Intake: IV 900 Intake, IV Titration 550 Amount IV Fluid Continuation 900 100 ml As IV [facility] Rx #:[id number] Piperacillin-Tazobactam 3 100 .375 gm In Dextrose/Water 1 50ml.bag @ 12.5 mls/hr IVPB Q8HR [facility] Rx#: [id number] Potassium Chloride 20 meq 100 In Sodium Chloride 0.9% 100 ml @ 55 mls/hr IVPB Q2H [facility] Rx#:[id number] Vancomycin 1,500 mg In 250 Sodium Chloride 0.9% 250 ml @ 125 mls/hr IVPB Q12HR@0600,1800 [facility] Rx#: [id number] Output: Estimated Blood Loss 25 Other: Voiding Method Bedside Commode # Voids 2 2 # Bowel Movements 3 - Constitutional General appearance: Present: average body habitus - Respiratory Respiratory: bilateral: CTA - Cardiovascular Rhythm: regular Heart sounds: normal: S1, S2 - Integumentary Integumentary Comment(s): Incisions are clean and dry packing will be changed by nurse - Psychiatric Psychiatric: Present: A&O x's 3, appropriate affect, intact judgment & insight - Labs CBC & Chem 7: 10/04/17 04:56 10/04/17 04:56 Labs: Abnormal Lab Results - Last 24 Hours (Table) 10/03/17 10/04/17 10/04/17 Range/Units 14:16 04:56 04:56 RBC 2.63 L (3.80-5.40) m/uL Hgb 8.5 L (11.4-16.0) gm/dL Hct 28.8 L (34.0-46.0) % MCV 109.4 H (80.0-100.0) fL MCHC 29.7 L (31.0-37.0) g/dL RDW 22.5 H (11.5-15.5) % Neutrophils # 8.9 H (1.3-7.7) k/uL Lymphocytes # 0.6 L (1.0-4.8) k/uL Sodium 146 H (137-145) mmol/L Potassium 3.1 L (3.5-5.1) mmol/L Chloride 114 H (98-107) mmol/L Carbon Dioxide 20 L (22-30) mmol/L BUN 5 L (7-17) mg/dL Glucose 120 H (74-99) mg/dL Calcium 8.2 L (8.4-10.2) mg/dL Magnesium 2.6 H (1.6-2.3) mg/dL Vancomycin Trough 35.0 H* ug/mL 10/04/17 Range/Units 04:56 RBC (3.80-5.40) m/uL Hgb (11.4-16.0) gm/dL Hct (34.0-46.0) % MCV (80.0-100.0) fL MCHC (31.0-37.0) g/dL RDW (11.5-15.5) % Neutrophils # (1.3-7.7) k/uL Lymphocytes # (1.0-4.8) k/uL Sodium (137-145) mmol/L Potassium (3.5-5.1) mmol/L Chloride 115 H (98-107) mmol/L Carbon Dioxide 20 L (22-30) mmol/L BUN (7-17) mg/dL Glucose 133 H (74-99) mg/dL Calcium 8.0 L (8.4-10.2) mg/dL Magnesium (1.6-2.3) mg/dL Vancomycin Trough ug/mL Microbiology - Last 24 Hours (Table) 10/03/17 12:45 Gram Stain - Preliminary Breast - Right Wound Culture - Preliminary Gram Neg Bacilli 10/03/17 12:45 Anaerobic Culture - Preliminary Breast - Right 10/02/17 13:30 Blood Culture - Preliminary Blood No Growth after 24 hours 10/02/17 13:30 Gram Stain - Preliminary Breast - Right Wound Culture - Preliminary Gram Neg Bacilli
--- NOTE | 2017-10-04 13:39 | P.PN ---
Subjective Progress Note Date: 10/04/17 Patient OD #1 s/p R breast I & D and drainage, The patient in the middle of having her dressings/packings of the right breast changed, appears in good spirits. No complaints at present no acute events overnight Objective - Vital Signs Vital signs: Vital Signs Temp 97.3 F L 10/04/17 07:00 Pulse 75 10/04/17 07:00 Resp 16 10/04/17 07:00 BP 109/71 10/04/17 07:00 Pulse Ox 97 10/04/17 07:00 Intake & Output 10/03/17 10/04/17 10/04/17 18:59 06:59 18:59 Intake Total 900 550 Output Total 25 Balance 875 550 Intake: IV 900 Intake, IV Titration 550 Amount IV Fluid Continuation 900 100 ml As IV [facility] Rx #:[id number] Piperacillin-Tazobactam 3 100 .375 gm In Dextrose/Water 1 50ml.bag @ 12.5 mls/hr IVPB Q8HR [facility] Rx#: [id number] Potassium Chloride 20 meq 100 In Sodium Chloride 0.9% 100 ml @ 55 mls/hr IVPB Q2H [facility] Rx#:[id number] Vancomycin 1,500 mg In 250 Sodium Chloride 0.9% 250 ml @ 125 mls/hr IVPB Q12HR@0600,1800 [facility] Rx#: [id number] Output: Estimated Blood Loss 25 Other: Voiding Method Bedside Commode # Voids 2 2 # Bowel Movements 3 - Exam Constitutional: No acute distress, conversant, pleasant Eyes: Anicteric sclerae, moist conjunctiva, no lid-lag, PERRLA ENMT: NC/AT,Oropharynx clear, no erythema, exudates Neck:Supple, FROM, no masses, or JVD, No carotid bruits; No thyromegaly Lungs: Clear to auscultation, Clear to percussion, Normal respiratory effort, no accessory muscle use Cardiovascular: Heart regular in rate and rhythm, No murmurs, gallops, or rubs no peripheral edema Abdominal: Soft Nontender, nom distended, no guarding, no rebound or rigidity, Normoactive bowel sounds No hepatomegaly, No splenomegaly, No palpable mass No abdominal wall hernia noted Skin: Normal temperature, tone, texture, turgor, No induration No subcutaneous nodules, right breast dressing packing in place Extremities:No digital cyanosis No clubbing, Pedal pulses intact and symmetrical Radial pulses intact and symmetrical Normal gait and station, No calf tenderness Psychiatric: Alert and oriented to person, place and time, Appropriate affect Intact judgement Neuro: Muscles Strength 5/5 in all 4 extremities, Sensation to light touch grossly present throughout, Cranial nerves II-XII grossly intact. No focal sensory deficits - Labs CBC & Chem 7: 10/04/17 04:56 10/04/17 04:56 Labs: Abnormal Lab Results - Last 24 Hours (Table) 10/03/17 10/04/17 10/04/17 Range/Units 14:16 04:56 04:56 RBC 2.63 L (3.80-5.40) m/uL Hgb 8.5 L (11.4-16.0) gm/dL Hct 28.8 L (34.0-46.0) % MCV 109.4 H (80.0-100.0) fL MCHC 29.7 L (31.0-37.0) g/dL RDW 22.5 H (11.5-15.5) % Neutrophils # 8.9 H (1.3-7.7) k/uL Lymphocytes # 0.6 L (1.0-4.8) k/uL Sodium 146 H (137-145) mmol/L Potassium 3.1 L (3.5-5.1) mmol/L Chloride 114 H (98-107) mmol/L Carbon Dioxide 20 L (22-30) mmol/L BUN 5 L (7-17) mg/dL Glucose 120 H (74-99) mg/dL Calcium 8.2 L (8.4-10.2) mg/dL Magnesium 2.6 H (1.6-2.3) mg/dL Vancomycin Trough 35.0 H* ug/mL 10/04/17 Range/Units 04:56 RBC (3.80-5.40) m/uL Hgb (11.4-16.0) gm/dL Hct (34.0-46.0) % MCV (80.0-100.0) fL MCHC (31.0-37.0) g/dL RDW (11.5-15.5) % Neutrophils # (1.3-7.7) k/uL Lymphocytes # (1.0-4.8) k/uL Sodium (137-145) mmol/L Potassium (3.5-5.1) mmol/L Chloride 115 H (98-107) mmol/L Carbon Dioxide 20 L (22-30) mmol/L BUN (7-17) mg/dL Glucose 133 H (74-99) mg/dL Calcium 8.0 L (8.4-10.2) mg/dL Magnesium (1.6-2.3) mg/dL Vancomycin Trough ug/mL Microbiology - Last 24 Hours (Table) 10/03/17 12:45 Gram Stain - Preliminary Breast - Right Wound Culture - Preliminary Gram Neg Bacilli 10/03/17 12:45 Anaerobic Culture - Preliminary Breast - Right 10/02/17 13:30 Blood Culture - Preliminary Blood No Growth after 24 hours 10/02/17 13:30 Gram Stain - Preliminary Breast - Right Wound Culture - Preliminary Gram Neg Bacilli Assessment and Plan (1) Abscess of right breast Narrative/Plan: * Patient afebrile without leukocytosis, POD #1 status post I&D and debridement of necrotic breast tissue * Initial wound preliminary cultures growing gram-negative bacilli await final cultures and sensitivities * Continue empiric IV antibiotic regimen with Zosyn and vancomycin Current Visit: Yes Status: Acute Code(s): N61.1 - ABSCESS OF THE BREAST AND NIPPLE SNOMED Code(s): 26671594 (2) Hypokalemia Narrative/Plan: * Continue potassium replacement protocol recheck potassium Current Visit: Yes Status: Resolved Code(s): E87.6 - HYPOKALEMIA SNOMED Code(s): 55939074
[2017-10-05] MEDS: SODIUM CHLORIDE 0.9% 1,000 ML IV SCH ×3 (01:36→20:24)
[2017-10-05] MEDS: PIPERACILLIN-TAZOBACTAM 3.375 GM in DEXTROSE/WATER 1 50ML.BAG IVPB SCH ×3 (02:27→16:57)
[2017-10-05] MEDS ORDERED: VANCOMYCIN 1,250 MG in SODIUM CHLORIDE 0.9% 250 ML IVPB SCH (06:00)
--- NOTE | 2017-10-05 07:50 | USB ---
Reason for exam: clinical finding. History: Patient is postmenopausal and is nulliparous. Took estrogen for 4 years. US Breast RT Right breast ultrasound includes all four quadrants, the retroareolar region and axilla. Finding demonstrates several hypoechoic lesions measuring 0.8 x 0.5 x 0.7cm at 12 o'clock, 1.4 x 1.0 x 1.4cm at 1 o'clock, 5.0 x 2.6 x 5.1cm at 5 o'clock and 5.0 x 2.5 x 5.0cm at 10 o'clock. These results were verbally communicated with the patient and result sheet given to the patient on 10/02/17. ASSESSMENT: Suspicious, BI-RAD 4 RECOMMENDATION: Surgical consultation of the right breast. (skin biopsy) Manage patient on a clinical basis.
[2017-10-05] MEDS: PANTOPRAZOLE 40 MG/10 ML VIAL IV SCH (08:42)
--- NOTE | 2017-10-05 08:51 | P.PN ---
Subjective Patient is postop day #2 from incision and drainage of large right breast abscess. At this time she is doing well without complaints. The Gram stain from her breast revealed gram-negative bacilli and Proteus mirabilis; blood culture no growth, is sensitive to piperacillin/tazobactam which she is presently receiving. Objective - Vital Signs Vital signs: Vital Signs Temp 100.0 F H 10/05/17 06:35 Pulse 87 10/05/17 06:35 Resp 14 10/05/17 06:35 BP 107/59 10/05/17 06:35 Pulse Ox 96 10/05/17 06:35 Intake & Output 10/04/17 10/05/17 10/05/17 18:59 06:59 18:59 Output Total 200 Balance -200 Output: Emesis 200 Other: Voiding Method Bedside Commode # Voids 2 4 # Bowel Movements 4 1 - Constitutional General appearance: Present: obese - Respiratory Respiratory: bilateral: CTA - Cardiovascular Rhythm: regular Heart sounds: normal: S1, S2 - Gastrointestinal General gastrointestinal: Present: normal bowel sounds, soft - Integumentary Integumentary Comment(s): Decreased erythema of the breast Packing changed yesterday will be changed today Incisions clean and dry - Labs CBC & Chem 7: 10/04/17 04:56 10/04/17 04:56 Labs: Abnormal Lab Results - Last 24 Hours (Table) 10/04/17 Range/Units 23:26 Plasma Lactic Acid [place] 2.5 H* (0.7-2.0) mmol/L Microbiology - Last 24 Hours (Table) 10/02/17 13:30 Blood Culture - Preliminary Blood No Growth after 48 hours 10/02/17 13:30 Gram Stain - Final Breast - Right Wound Culture - Final Proteus mirabilis 10/03/17 12:45 Gram Stain - Preliminary Breast - Right Wound Culture - Preliminary Gram Neg Bacilli Assessment and Plan Plan: Impression/plan: 1. Postop day #2 I&D of left breast abscess 2. History of vascular disease 3. History of hypertension 4. Anemia 5. Hypokalemia Plan: 1. IV antibiotics 2. Infectious disease consultation recommended 3. Await pathology
[2017-10-05] MEDS: MORPHINE SULFATE 4 MG/ML SYRINGE IVP PRN (09:56)
[2017-10-05 13:52] VITALS: BMI 27.4
[2017-10-05] MEDS ORDERED: MORPHINE ORAL SOLN 10 MG/5 ML CUP PO PRN (14:19)
--- NOTE | 2017-10-05 14:20 | P.PN ---
Subjective Progress Note Date: 10/05/17 Patient POD #2 s/p R breast I & D and drainage, The patient in the middle of having her dressings/packings of the right breast changed, appears in good spirits. Reports some intermittent nausea along with some several episodes of watery stools last night, reports a decrease in her appetite. T-max overnight is 100.0 Objective - Vital Signs Vital signs: Vital Signs Temp 100.0 F H 10/05/17 06:35 Pulse 87 10/05/17 06:35 Resp 14 10/05/17 06:35 BP 107/59 10/05/17 06:35 Pulse Ox 96 10/05/17 06:35 Intake & Output 10/04/17 10/05/17 10/05/17 18:59 06:59 18:59 Output Total 200 Balance -200 Weight 68.039 kg Output: Emesis 200 Other: Voiding Method Bedside Commode Bedside Commode # Voids 2 4 1 # Bowel Movements 4 1 - Exam Constitutional: No acute distress, conversant, pleasant Eyes: Anicteric sclerae, moist conjunctiva, no lid-lag, PERRLA ENMT: NC/AT,Oropharynx clear, no erythema, exudates Neck:Supple, FROM, no masses, or JVD, No carotid bruits; No thyromegaly Lungs: Clear to auscultation, Clear to percussion, Normal respiratory effort, no accessory muscle use Cardiovascular: Heart regular in rate and rhythm, No murmurs, gallops, or rubs no peripheral edema Abdominal: Soft Nontender, nom distended, no guarding, no rebound or rigidity, Normoactive bowel sounds No hepatomegaly, No splenomegaly, No palpable mass No abdominal wall hernia noted Skin: Normal temperature, tone, texture, turgor, No induration No subcutaneous nodules, right breast dressing packing in place Extremities:No digital cyanosis No clubbing, Pedal pulses intact and symmetrical Radial pulses intact and symmetrical Normal gait and station, No calf tenderness Psychiatric: Alert and oriented to person, place and time, Appropriate affect Intact judgement Neuro: Muscles Strength 5/5 in all 4 extremities, Sensation to light touch grossly present throughout, Cranial nerves II-XII grossly intact. No focal sensory deficits - Labs CBC & Chem 7: 10/04/17 04:56 10/04/17 04:56 Labs: Abnormal Lab Results - Last 24 Hours (Table) 10/04/17 Range/Units 23:26 Plasma Lactic Acid [place] 2.5 H* (0.7-2.0) mmol/L Microbiology - Last 24 Hours (Table) 10/03/17 12:45 Anaerobic Culture - Final Breast - Right 10/02/17 13:30 Blood Culture - Preliminary Blood No Growth after 48 hours 10/02/17 13:30 Gram Stain - Final Breast - Right Wound Culture - Final Proteus mirabilis Assessment and Plan (1) Abscess of right breast Narrative/Plan: * Patient with low-grade temperature, POD #2 status post I&D and debridement of necrotic breast tissue * Initial wound preliminary cultures growing gram-negative bacilli Proteus mirabilis * Continue empiric IV antibiotic regimen with Zosyn, discontinue vancomycin consult infectious disease for further recommendations Current Visit: Yes Status: Acute Code(s): N61.1 - ABSCESS OF THE BREAST AND NIPPLE SNOMED Code(s): 27091165 (2) Hypokalemia Narrative/Plan: * Continue potassium replacement protocol recheck potassium Current Visit: Yes Status: Resolved Code(s): E87.6 - HYPOKALEMIA SNOMED Code(s): 03555422
--- NOTE | 2017-10-05 23:12 | P.CONS ---
History of Present Illness - Reason for Consult Consult date: 10/05/17 - Chief Complaint Pain right breast - History of Present Illness 62-year-old female presents emergency center with a many month history of increasing difficulties related to her right breast. This anxious from relates that she started to have difficulty with some swelling erythema and tenderness to the right breast without known trauma or injury. She applied some local care but when the breast open and started to drain copious amounts of purulent material she presented to the emergency center for intervention. Is noted she's been seen by the surgeon and taken to the operating room incision and drainage of the large right breast abscess. There is still some packing in place at this time. The patient relates to being terrified about was going to happen to her next. She has a history of an aortobifem bypass performed at an outside facility that was fraught with complications. It appears that she developed significant wound infection of the abdominal site and possibly of the left femoral site is noted by the extensive scarring. The patient relates that she was hospitalized for many weeks and then spent 5 months in an extended care facility in the [facility] which is far from her home. She relates that eventually her mother's patent attorney was able to have her freed from the [facility] to go back to live in the home setting. She relates that she still has weakness and has difficulty navigating the steps of the home and she has a friend who does most of the shopping for her. She relates that she is able to navigate within the home is able to perform some of her as well as meal ADL's a well as meal preps. She this time is denying significant fever, chills or rigors. Breasts is forcing very uncomfortable. And she is denying any other interim new discomforts. Denies nausea or emesis, denies diarrhea or other difficulties with current antibiotic therapy. The left breast is without difficulty. Review of Systems 62-year-old woman who looks older than her stated age, is not distinctly uncomfortable HEENT:Denies headache or acute visual change. Denies sinus or mouth discomforts. Denies neck stiffness or pain. Denies significant oral cavity pain. Denies difficulty on swallowing. Lungs: Denies significant shortness of breath, cough, sputum production, or hemoptysis. Cardiovascular: Denies significant shortness of breath, chest pain, chest wall pain, orthopnea, dyspnea on exertion, syncope Gastrointestinal:Denies nausea, vomiting, diarrhea, constipation, hematemesis, melena, hematochezia. No no significant change of bowel habit noticed. Musculoskeletal: denies significant myalgias or arthralgias. No new joint swelling. Denies new back pain. Skin: As per the HPI right breast abscess Neuro: Denies headache or visual change. Denies any new onset weakness or difficulty with ambulation. Denies falls or seizures. Psychiatric:Denies anxiety or depression. Endocrine: Denies significant fatigue, denies significant weight loss or weight gain. Past Medical History Past Medical History: No Reported History, Vascular Disorder Additional Past Medical History / Comment(s): ENDOMETREOSIS "BORN WITH 10% RETINA LT EYE" History of Any Multi-Drug Resistant Organisms: None Reported Past Surgical History: Appendectomy, Bowel Resection, Coronary Bypass/CABG, Hysterectomy, Tubal Ligation Additional Past Surgical History / Comment(s): "Stent RT GROIN", BARTHOLIN CYST REMOVED, TOTAL HX AND 4" OF SMALL INTESTINE REMOVED D/T ENDOMETREOSIS" aorto bifemoral bypass January 2017 Past Anesthesia/Blood Transfusion Reactions: No Reported Reaction Past Psychological History: Depression Additional Psychological History / Comment(s): Single and lives independently. He has a female friend who is helping her with her shopping and some other activities. 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 No experience. No extensive travel. No animal exposures. Stop tobacco use in 2011. Denies alcohol use or recreational drug use Smoking Status: Former smoker (Stopped in 2011 with a 50-eobm-gkeb history of smoking) Past Alcohol Use History: None Reported, Daily Past Drug Use History: None Reported - Past Family History Father Family Medical History: Cancer Additional Family Medical History / Comment(s): LUNG CANCER(SMOKED), BRAIN TUMOR REMOVED-HAD RADIATION [place] THEN HAD STROKE. Mother Family Medical History: Cancer Additional Family Medical History / Comment(s): COLON AND SKIN CANCER. ALSO HAD TB Brother(s) Additional Family Medical History / Comment(s): 1 BROTHER HAS MS, ANOTHER BROTHER FROM COMPLICATIONS FROM ETOH/SCHIZOPHRENIA Medications and Allergies Home Medications and Allergies Comment(s): Current Medications Acetaminophen (Tylenol Tab) 650 mg PO Q6HR PRN PRN Reason: Mild Pain or Fever > 100.5 Sodium Chloride (Saline 0.9%) 1,000 mls @ 100 mls/hr IV .Q10H [facility] Last Admin: 10/05/17 20:24 Dose: 100 mls/hr Piperacillin/Tazobactam/ (Dextrose 3.375 gm/ IV Solution) 50 mls @ 12.5 mls/hr IVPB Q8H [facility] Last Admin: 10/05/17 16:57 Dose: 12.5 mls/hr Ibuprofen (Motrin) 400 mg PO Q6HR PRN PRN Reason: Mild Pain or Fever > 100.5 Ketorolac Tromethamine (Toradol) 30 mg IVP Q6HR PRN PRN Reason: Moderate Pain Stop: 10/07/17 15:53 Morphine Sulfate (Morphine Oral Giuliana 2mg/Ml) 6 mg PO Q4HR PRN PRN Reason: Severe Pain Naloxone HCl (Narcan) 0.2 mg IV Q2M PRN PRN Reason: Opioid Reversal Ondansetron HCl (Zofran) 4 mg IVP Q8HR PRN PRN Reason: Nausea And Vomiting Last Admin: 10/05/17 13:45 Dose: 4 mg Pantoprazole Sodium (Protonix) 40 mg PO AC-BRKFST [facility] Home Medications Medication Instructions Recorded Confirmed Type Acetaminophen Tab [Tylenol Tab] 650 mg PO Q6H PRN 10/02/17 10/02/17 History Allergies Allergy/AdvReac Type Severity Reaction Status Date / Time No Known Allergies Allergy Verified 10/02/17 12:41 Physical Exam Vitals: Vital Signs Temp Pulse Resp BP BP Pulse Ox 10/05/17 15:52 98 F 77 17 111/60 99 10/05/17 06:35 100.0 F H 87 14 107/59 96 Intake and Output 10/05/17 10/05/17 10/05/17 06:59 14:59 22:59 Other: Voiding Method Bedside Commode # Voids 4 1 1 # Bowel Movements 4 1 1 Weight 68.039 kg Patient Weight 10/06/17 06:59 Weight 68.039 kg 62-year-old who is modestly comfortable denying significant amounts of pain HEENT: Anicteric conjunctiva are pink and moist nasal mucosa grossly intact without significant lesions, there is no thrush. Neck: The neck is supple without significant lymphadenopathy or thyromegaly. Lungs: Symmetrical air entry with few expiratory wheezing but no bronchial sounds no dullness or egophony Heart: Regular rate and rhythm with an audible S1-S2, no S3 positive S4. There is no significant murmur click or rub, PMI was nondisplaced. Abdomen: Positive bowel sounds soft and nontender without palpable masses or organomegaly. There was no guarding or rebound. Extremities: The upper extremities have excellent pulses they are symmetric, no significant petechiae or telangiectasia. No splinter hemorrhages were noted. Lower extremities have chronic venous stasis changes. No open ulcerations are seen. The feet are not cold with palpable pulses. Skin: The abdominal wall has evidence of the prior surgical intervention that has evidence of the extensive scar from the prior infection and still has an area of some hyperkeratotic tissue in the midline abdominal scar. With the nurse present the breast evaluation occurs with evidence of any abscess to the left breast. Repair shows evidence of the recent surgical intervention and the sutures are in place with the mid breast packing from the abscess. There is no expressible purulence at this time. There is still a significant amount of induration related to the infection with tenderness on manipulation, but denies severe pain. Neuro: Awake alert oriented to person place and time. There are no acute new gross focal sensory motor deficits. Results CBC & Chem 7: 10/04/17 04:56 10/04/17 04:56 Labs: Abnormal Lab Results - Last 24 Hours (Table) 10/04/17 Range/Units 23:26 Plasma Lactic Acid [place] 2.5 H* (0.7-2.0) mmol/L Microbiology - Last 24 Hours (Table) 10/02/17 13:30 Blood Culture - Preliminary Blood No Growth after 72 hours 10/03/17 12:45 Gram Stain - Final Breast - Right Wound Culture - Final Proteus mirabilis 10/03/17 12:45 Anaerobic Culture - Final Breast - Right Laboratory Results WBC 10.0 k/uL (3.8-10.6) 10/04/17 04:56 RBC 2.63 m/uL (3.80-5.40) L 10/04/17 04:56 Hgb 8.5 gm/dL (11.4-16.0) L 10/04/17 04:56 Hct 28.8 % (34.0-46.0) L 10/04/17 04:56 MCV 109.4 fL (80.0-100.0) H 10/04/17 04:56 MCH 32.4 pg (25.0-35.0) 10/04/17 04:56 MCHC 29.7 g/dL (31.0-37.0) L 10/04/17 04:56 RDW 22.5 % (11.5-15.5) H 10/04/17 04:56 Plt Count 376 k/uL (150-450) 10/04/17 04:56 Neutrophils % 89 % 10/04/17 04:56 Lymphocytes % 6 % 10/04/17 04:56 Monocytes % 3 % 10/04/17 04:56 Eosinophils % 1 % 10/04/17 04:56 Basophils % 0 % 10/04/17 04:56 Neutrophils # 8.9 k/uL (1.3-7.7) H 10/04/17 04:56 Lymphocytes # 0.6 k/uL (1.0-4.8) L 10/04/17 04:56 Monocytes # 0.3 k/uL (0-1.0) 10/04/17 04:56 Eosinophils # 0.1 k/uL (0-0.7) 10/04/17 04:56 Basophils # 0.0 k/uL (0-0.2) 10/04/17 04:56 Polychromasia Present 10/02/17 13:30 Hypochromasia Marked 10/04/17 04:56 Anisocytosis Moderate 10/04/17 04:56 Macrocytosis Marked 10/04/17 04:56 PT 10.8 sec (9.0-12.0) 10/02/17 13:30 INR 1.1 (<1.2) 10/02/17 13:30 APTT 24.3 sec (22.0-30.0) 10/02/17 13:30 Sodium 143 mmol/L (137-145) 10/04/17 04:56 Potassium 3.9 mmol/L (3.5-5.1) 10/04/17 04:56 Chloride 115 mmol/L (98-107) H 10/04/17 04:56 Carbon Dioxide 20 mmol/L (22-30) L 10/04/17 04:56 Anion Gap 8 mmol/L 10/04/17 04:56 BUN 8 mg/dL (7-17) 10/04/17 04:56 Creatinine 0.90 mg/dL (0.52-1.04) 10/04/17 04:56 Est GFR (MDRD) Af Amer >60 (>60 ml/min/1.73 sqM) 10/04/17 04:56 Est GFR (MDRD) Non-Af >60 (>60 ml/min/1.73 sqM) 10/04/17 04:56 Glucose 133 mg/dL (74-99) H 10/04/17 04:56 Plasma Lactic Acid [place] 1.1 mmol/L (0.7-2.0) 10/05/17 08:17 Calcium 8.0 mg/dL (8.4-10.2) L 10/04/17 04:56 Magnesium 2.6 mg/dL (1.6-2.3) H 10/03/17 14:16 Total Bilirubin 0.8 mg/dL (0.2-1.3) 10/02/17 13:30 AST 24 U/L (14-36) 10/02/17 13:30 ALT 14 U/L (9-52) 10/02/17 13:30 Alkaline Phosphatase 110 U/L (38-126) 10/02/17 13:30 Total Protein 7.2 g/dL (6.3-8.2) 10/02/17 13:30 Albumin 3.4 g/dL (3.5-5.0) L 10/02/17 13:30 Vancomycin Trough 35.0 ug/mL H* 10/04/17 04:56 Microbiology 10/02/17 13:30 Blood Blood Culture - Preliminary No Growth after 72 hours 10/03/17 12:45 Breast - Right Gram Stain - Final 10/03/17 12:45 Breast - Right Wound Culture - Final Proteus mirabilis 10/03/17 12:45 Breast - Right Anaerobic Culture - Final 10/02/17 13:30 Breast - Right Gram Stain - Final 10/02/17 13:30 Breast - Right Wound Culture - Final Proteus mirabilis Assessment and Plan (1) Abscess of right breast Narrative/Plan: 62-year-old woman presents to the emergency center with significant pain swelling and drainage from her right breast. She noted by surgery and has had the incision and drainage to the significant breast abscess. Wound culture is showing evidence of the Proteus mirabilis infection of the breast. She's doing well at this point in time and is having some further improvement with the current antibiotic therapy. She's been followed by the surgeon and we are awaiting pathology. Antimicrobial therapy may be streamlined to Rocephin at this time. Potentially will be utilizing oral antibiotic therapy. The patient is adamant that she does not want outpatient intravenous antibiotic therapy nor wants to go to the [facility]. She cries and is very upset about the potential thought of going back to the [facility]. She relates that her 5 months was like being in penitentiary and does not want to go back. She fortunately he is not having severe pain and the amount of drainage is improved. We'll work with the discharge planners as to potential outpatient antibiotic therapy and local wound care with home care nurse. Patient would do well to have improved nutrition, a multivitamin and will evaluate her iron stores and supplement as indicated. Current Visit: Yes Status: Acute Code(s): N61.1 - ABSCESS OF THE BREAST AND NIPPLE SNOMED Code(s): 73312128 (2) Atherosclerotic peripheral vascular disease Current Visit: Yes Status: Acute Code(s): I70.209 - UNSP ATHSCL NULATO ARTERIES OF EXTREMITIES, UNSP EXTREMITY SNOMED Code(s): 968915352
[2017-10-05] MEDS: cefTRIAXone IN SWFI 2,000 MG/20 ML SYRINGE IVP SCH (23:41)
[2017-10-06 08:05] LABS: Reticulocyte % 1.7 % (0.5-2.0)
[2017-10-06] MEDS: PANTOPRAZOLE 40 MG TABLET PO SCH (08:39)
[2017-10-06] MEDS: SODIUM CHLORIDE 0.9% 1,000 ML IV SCH ×2 (08:40→16:16)
--- NOTE | 2017-10-06 10:47 | P.PN ---
Subjective Progress Note Date: 10/06/17 62-year-old female seen and examined persistent episodes of watery frequent stooling during the night. Patient is status post day 3 right breast incision and drainage. Currently dressing to the right breast dry patients being followed by infectious disease. The Gram stain from the right breast showed gram-negative bacilli and [place] Marabilis Objective - Vital Signs Vital signs: Vital Signs Temp 97.6 F 10/06/17 05:54 Pulse 101 H 10/06/17 05:54 Resp 18 10/06/17 05:54 BP 111/74 10/06/17 05:54 Pulse Ox 100 10/06/17 05:54 Intake & Output 10/05/17 10/06/17 10/06/17 18:59 06:59 18:59 Weight 68.039 kg Other: Voiding Method Bedside Commode # Voids 1 3 # Bowel Movements 1 2 - Exam Physical exam 62-year-old female resting in bed appears in no acute distress Lungs essentially clear adequate air movement Heart S1-S2 audible regular Chest support bra in place dressings right breast dry Abdomen soft nontender reports having frequent watery stools Extremities no edema noted - Labs CBC & Chem 7: 10/04/17 04:56 10/06/17 07:25 Labs: Abnormal Lab Results - Last 24 Hours (Table) 10/06/17 Range/Units 07:25 Creatinine 2.05 H (0.52-1.04) mg/dL Microbiology - Last 24 Hours (Table) 10/02/17 13:30 Blood Culture - Preliminary Blood No Growth after 72 hours 10/03/17 12:45 Gram Stain - Final Breast - Right Wound Culture - Final Proteus mirabilis 10/03/17 12:45 Anaerobic Culture - Final Breast - Right Assessment and Plan Assessment: Impression Status post day 3 incision and drainage of a large right breast abscess Gram stain positive for right breast gram-negative bacilli and proteus mirabilis History of vascular disease Hypokalemia corrected Plan Continue recommendations by infectious disease defer to Pain control Send stool for C. diff Await pathology Will follow with you The above impression and plan of care have been discussed and directed by signing physician. Alessandra Lewis nurse practitioner acting as scribe for signing physician.
[2017-10-06 11:19] LABS: Iron Saturation 10.11 (12.00-45.00)
[2017-10-06] MEDS: MULTIVITAMINS, THERA 1 EACH TAB PO SCH (14:02)
--- NOTE | 2017-10-06 14:16 | P.PN ---
Subjective Progress Note Date: 10/06/17 Patient POD #3 s/p R breast I & D and drainage, The patient in the middle of having her dressings/packings of the right breast changed, appears in good spirits. Reports some intermittent nausea along with some several episodes of watery stools last night, reports a decrease in her appetite. Afebrile for the last 24 hours Objective - Vital Signs Vital signs: Vital Signs Temp 97.6 F 10/06/17 05:54 Pulse 101 H 10/06/17 05:54 Resp 18 10/06/17 05:54 BP 111/74 10/06/17 05:54 Pulse Ox 100 10/06/17 05:54 Intake & Output 10/05/17 10/06/17 10/06/17 18:59 06:59 18:59 Weight 68.039 kg Other: Voiding Method Bedside Commode # Voids 1 3 1 # Bowel Movements 1 2 - Exam Constitutional: No acute distress, conversant, pleasant Eyes: Anicteric sclerae, moist conjunctiva, no lid-lag, PERRLA ENMT: NC/AT,Oropharynx clear, no erythema, exudates Neck:Supple, FROM, no masses, or JVD, No carotid bruits; No thyromegaly Lungs: Clear to auscultation, Clear to percussion, Normal respiratory effort, no accessory muscle use Cardiovascular: Heart regular in rate and rhythm, No murmurs, gallops, or rubs no peripheral edema Abdominal: Soft Nontender, nom distended, no guarding, no rebound or rigidity, Normoactive bowel sounds No hepatomegaly, No splenomegaly, No palpable mass No abdominal wall hernia noted Skin: Normal temperature, tone, texture, turgor, No induration No subcutaneous nodules, right breast dressing packing in place Extremities:No digital cyanosis No clubbing, Pedal pulses intact and symmetrical Radial pulses intact and symmetrical Normal gait and station, No calf tenderness Psychiatric: Alert and oriented to person, place and time, Appropriate affect Intact judgement Neuro: Muscles Strength 5/5 in all 4 extremities, Sensation to light touch grossly present throughout, Cranial nerves II-XII grossly intact. No focal sensory deficits - Labs CBC & Chem 7: 10/04/17 04:56 10/06/17 07:25 Labs: Abnormal Lab Results - Last 24 Hours (Table) 10/06/17 10/06/17 Range/Units 07:25 07:25 Creatinine 2.05 H (0.52-1.04) mg/dL Iron 18 L (50-170) ug/dL TIBC 178 L (228-460) ug/dL Iron Saturation 10.11 L (12.00-45.00) Microbiology - Last 24 Hours (Table) 10/02/17 13:30 Blood Culture - Preliminary Blood No Growth after 72 hours 10/03/17 12:45 Gram Stain - Final Breast - Right Wound Culture - Final Proteus mirabilis 10/03/17 12:45 Anaerobic Culture - Final Breast - Right Assessment and Plan (1) Abscess of right breast Narrative/Plan: * Patient with low-grade temperature, POD #3 status post I&D and debridement of necrotic breast tissue * Initial wound preliminary cultures growing gram-negative bacilli Proteus mirabilis * Continue with Rocephin per ID recommendations, awaiting pathology Current Visit: Yes Status: Acute Code(s): N61.1 - ABSCESS OF THE BREAST AND NIPPLE SNOMED Code(s): 78162542 (2) Hypokalemia Narrative/Plan: * Continue potassium replacement protocol recheck potassium Current Visit: Yes Status: Resolved Code(s): E87.6 - HYPOKALEMIA SNOMED Code(s): 67717843
--- NOTE | 2017-10-06 15:17 | CDI ---
Last Revision, July 2017 Documentation Clarification Form Date: 10/06/2017 3:11:00 PM From: Kelsi ParrishMELISSA, CCDS Admit Date: 10/02/2017 3:35:00 PM Patient Name: Kelsi Lal Visit Number: [id number] Discharge Date: ATTENTION: The Clinical Documentation Specialists (CDI) and [facility] Coding Staff appreciate your assistance in clarifying documentation. Please respond to the clarification below the line at the bottom and electronically sign. The CDI & [facility] Coding staff will review the response and follow-up if needed. Please note: Queries are made part of the Legal Health Record. If you have any questions, please contact the author of this message via ITS. Dr. Mimi Jung: Per the 10/03 Procedure Note: "Incision and drainage of large right breast abscess as well as debridement of necrotic tissue." History/Risk Factors: Hypertension, Atherosclerosis of extremities, previous postoperative infection. Clinical Indicators: Presented with a large abscess on right breast. Treatment: I&D & debridement of breast abscess. IV abx, Wound cultures pending. Five elements required for accurate and compliant documentation of a debridement: o Technique used (e.g., excisional, excised, cutting, etc.) o Instrument(s) used (e.g., scalpel, curette, etc.) o Nature of the tissue removed (e.g., necrotic, devitalized tissues, non- viable tissue, etc.) o Appearance and size of the wound (e.g., down to fresh bleeding tissue, 7cm x 10cm, etc.) o Depth of the debridement* (e.g., skin, subcutaneous tissue, fascia, muscle , bone, etc.) In order to capture the severity of condition and code the appropriate procedure ; could you please document the following: Excisional debridement (the removal of necrotic, devitalized tissue or slough by means of cutting away of tissue) Non-excisional debridement (the removal of necrotic, devitalized tissue or slough by means of flushing, brushing, or washing. (Irrigation) Other; please specify Unable to determine (no explanation for clinical findings) Please continue to document in your progress notes and discharge summary in order to capture severity of illness and risk of mortality. Include clinical findings that support your diagnosis. MTDD
[2017-10-06] MEDS ORDERED: LACTATED RINGERS 1,000 ML IV SCH (20:30)
[2017-10-06] MEDS: cefTRIAXone IN SWFI 2,000 MG/20 ML SYRINGE IVP SCH (21:21)
--- NOTE | 2017-10-06 23:26 | P.PN ---
Subjective Progress Note Date: 10/06/17 Principal diagnosis: Pain right breast 62-year-old female presents emergency center with a many month history of increasing difficulties related to her right breast. This anxious from relates that she started to have difficulty with some swelling erythema and tenderness to the right breast without known trauma or injury. She applied some local care but when the breast open and started to drain copious amounts of purulent material she presented to the emergency center for intervention. Is noted she's been seen by the surgeon and taken to the operating room incision and drainage of the large right breast abscess. There is still some packing in place at this time. The patient relates to being terrified about was going to happen to her next. She has a history of an aortobifem bypass performed at an outside facility that was fraught with complications. It appears that she developed significant wound infection of the abdominal site and possibly of the left femoral site is noted by the extensive scarring. The patient relates that she was hospitalized for many weeks and then spent 5 months in an extended care facility in the [facility] which is far from her home. She relates that eventually her mother's civil attorney was able to have her freed from the snf to go back to live in the home setting. She relates that she still has weakness and has difficulty navigating the steps of the home and she has a friend who does most of the shopping for her. She relates that she is able to navigate within the home is able to perform some of her as well as meal ADL's a well as meal preps. She this time is denying significant fever, chills or rigors. Breasts is forcing very uncomfortable. And she is denying any other interim new discomforts. Denies nausea or emesis, denies diarrhea or other difficulties with current antibiotic therapy. The left breast is without difficulty. 10/06/2017 patient has had a rough day. She which is cried quite a bit throughout the day because she is so worried was going to happen to her. She is spent 5 months the snf and just does not want to go back to that facility. She fortunately is feeling slightly better. She's been able to eat mostly throughout the day. Is denying nausea or emesis but just does not feel well overall. Pain to the right breast is minimal. Objective - Vital Signs Vital signs: Vital Signs Temp 97.0 F L 10/06/17 22:50 Pulse 65 10/06/17 22:50 Resp 18 10/06/17 22:50 BP 105/56 10/06/17 22:50 Pulse Ox 97 10/06/17 22:50 Intake & Output 10/06/17 10/06/17 10/07/17 06:59 18:59 06:59 Other: # Voids 3 1 # Bowel Movements 2 - Exam 62-year-old who is modestly comfortable denying significant amounts of pain HEENT: Anicteric conjunctiva are pink and moist nasal mucosa grossly intact without significant lesions, there is no thrush. Neck: The neck is supple without significant lymphadenopathy or thyromegaly. Lungs: Symmetrical air entry with few expiratory wheezing but no bronchial sounds no dullness or egophony Heart: Regular rate and rhythm with an audible S1-S2, no S3 positive S4. There is no significant murmur click or rub, PMI was nondisplaced. Abdomen: Positive bowel sounds soft and nontender without palpable masses or organomegaly. There was no guarding or rebound. Extremities: The upper extremities have excellent pulses they are symmetric, no significant petechiae or telangiectasia. No splinter hemorrhages were noted. Lower extremities have chronic venous stasis changes. No open ulcerations are seen. The feet are not cold with palpable pulses. Skin: The abdominal wall has evidence of the prior surgical intervention that has evidence of the extensive scar from the prior infection and still has an area of some hyperkeratotic tissue in the midline abdominal scar. With the nurse present the breast evaluation occurs with evidence of any abscess to the left breast. Repair shows evidence of the recent surgical intervention and the sutures are in place with the mid breast packing from the abscess. There is no expressible purulence at this time. There is still a significant amount of induration related to the infection with tenderness on manipulation, but denies severe pain. Neuro: Awake alert oriented to person place and time. There are no acute new gross focal sensory motor deficits. - Labs CBC & Chem 7: 10/04/17 04:56 10/06/17 07:25 Labs: Abnormal Lab Results - Last 24 Hours (Table) 10/06/17 10/06/17 Range/Units 07:25 07:25 Creatinine 2.05 H (0.52-1.04) mg/dL Iron 18 L (50-170) ug/dL TIBC 178 L (228-460) ug/dL Iron Saturation 10.11 L (12.00-45.00) Microbiology - Last 24 Hours (Table) 10/02/17 13:30 Blood Culture - Preliminary Blood No Growth after 96 hours Laboratory Results WBC 10.0 k/uL (3.8-10.6) 10/04/17 04:56 RBC 2.63 m/uL (3.80-5.40) L 10/04/17 04:56 Hgb 8.5 gm/dL (11.4-16.0) L 10/04/17 04:56 Hct 28.8 % (34.0-46.0) L 10/04/17 04:56 MCV 109.4 fL (80.0-100.0) H 10/04/17 04:56 MCH 32.4 pg (25.0-35.0) 10/04/17 04:56 MCHC 29.7 g/dL (31.0-37.0) L 10/04/17 04:56 RDW 22.5 % (11.5-15.5) H 10/04/17 04:56 Plt Count 376 k/uL (150-450) 10/04/17 04:56 Neutrophils % 89 % 10/04/17 04:56 Lymphocytes % 6 % 10/04/17 04:56 Monocytes % 3 % 10/04/17 04:56 Eosinophils % 1 % 10/04/17 04:56 Basophils % 0 % 10/04/17 04:56 Neutrophils # 8.9 k/uL (1.3-7.7) H 10/04/17 04:56 Lymphocytes # 0.6 k/uL (1.0-4.8) L 10/04/17 04:56 Monocytes # 0.3 k/uL (0-1.0) 10/04/17 04:56 Eosinophils # 0.1 k/uL (0-0.7) 10/04/17 04:56 Basophils # 0.0 k/uL (0-0.2) 10/04/17 04:56 Polychromasia Present 10/02/17 13:30 Hypochromasia Marked 10/04/17 04:56 Anisocytosis Moderate 10/04/17 04:56 Macrocytosis Marked 10/04/17 04:56 Retic Count 1.7 % (0.5-2.0) 10/06/17 07:25 PT 10.8 sec (9.0-12.0) 10/02/17 13:30 INR 1.1 (<1.2) 10/02/17 13:30 APTT 24.3 sec (22.0-30.0) 10/02/17 13:30 Sodium 143 mmol/L (137-145) 10/04/17 04:56 Potassium 3.9 mmol/L (3.5-5.1) 10/04/17 04:56 Chloride 115 mmol/L (98-107) H 10/04/17 04:56 Carbon Dioxide 20 mmol/L (22-30) L 10/04/17 04:56 Anion Gap 8 mmol/L 10/04/17 04:56 BUN 8 mg/dL (7-17) 10/04/17 04:56 Creatinine 2.05 mg/dL (0.52-1.04) H 10/06/17 07:25 Est GFR (MDRD) Af Amer 30 (>60 ml/min/1.73 sqM) 10/06/17 07:25 Est GFR (MDRD) Non-Af 25 (>60 ml/min/1.73 sqM) 10/06/17 07:25 Glucose 133 mg/dL (74-99) H 10/04/17 04:56 Plasma Lactic Acid [place] 1.1 mmol/L (0.7-2.0) 10/05/17 08:17 Calcium 8.0 mg/dL (8.4-10.2) L 10/04/17 04:56 Magnesium 2.6 mg/dL (1.6-2.3) H 10/03/17 14:16 Iron 18 ug/dL (50-170) L 10/06/17 07:25 TIBC 178 ug/dL (228-460) L 10/06/17 07:25 Iron Saturation 10.11 (12.00-45.00) L 10/06/17 07:25 Total Bilirubin 0.8 mg/dL (0.2-1.3) 10/02/17 13:30 AST 24 U/L (14-36) 10/02/17 13:30 ALT 14 U/L (9-52) 10/02/17 13:30 Alkaline Phosphatase 110 U/L (38-126) 10/02/17 13:30 Total Protein 7.2 g/dL (6.3-8.2) 10/02/17 13:30 Albumin 3.4 g/dL (3.5-5.0) L 10/02/17 13:30 Vancomycin Trough 35.0 ug/mL H* 10/04/17 04:56 C. difficile (EIA) Intrp Negative (Negative) 10/06/17 16:40 Microbiology 10/02/17 13:30 Blood Blood Culture - Preliminary No Growth after 96 hours 10/03/17 12:45 Breast - Right Gram Stain - Final 10/03/17 12:45 Breast - Right Wound Culture - Final Proteus mirabilis 10/03/17 12:45 Breast - Right Anaerobic Culture - Final 10/02/17 13:30 Breast - Right Gram Stain - Final 10/02/17 13:30 Breast - Right Wound Culture - Final Proteus mirabilis Assessment and Plan (1) Abscess of right breast Narrative/Plan: 62-year-old woman presents to the emergency center with significant pain swelling and drainage from her right breast. She noted by surgery and has had the incision and drainage to the significant breast abscess. Wound culture is showing evidence of the Proteus mirabilis infection of the breast. She's doing well at this point in time and is having some further improvement with the current antibiotic therapy. She's been followed by the surgeon and we are awaiting pathology. Antimicrobial therapy may be streamlined to Rocephin at this time. Potentially will be utilizing oral antibiotic therapy. The patient is adamant that she does not want outpatient intravenous antibiotic therapy nor wants to go to the snf. She cries and is very upset about the potential thought of going back to the snf. She relates that her 5 months was like being in skilled nursing and does not want to go back. She fortunately he is not having severe pain and the amount of drainage is improved. We'll work with the discharge planners as to potential outpatient antibiotic therapy and local wound care with home care nurse. Patient would do well to have improved nutrition, a multivitamin and will evaluate her iron stores and supplement as indicated. 10/06/2017 reveals the patient to be improved. But does complain that she is not feeling well overall. Her creatinine is increased and we'll give her a fluid bolus to recheck her creatinine the morning. Encouraged to drink her fluids. She had significant diarrhea that has now resolved. Again encouraging her to eat her meals to the best her ability. With antibiotic change from Zosyn to Rocephin but expect her to have less diarrhea. Likely will be discharged home on oral antibiotic therapy with ciprofloxacin when she is ready for discharge. Current Visit: Yes Status: Acute Code(s): N61.1 - ABSCESS OF THE BREAST AND NIPPLE SNOMED Code(s): 42460993 (2) Atherosclerotic peripheral vascular disease Current Visit: Yes Status: Acute Code(s): I70.209 - UNSP ATHSCL [place] ARTERIES OF EXTREMITIES, UNSP EXTREMITY SNOMED Code(s): 711089750
[2017-10-07] MEDS: SODIUM CHLORIDE 0.9% 1,000 ML IV SCH ×2 (06:21→12:57)
[2017-10-07] MEDS: PANTOPRAZOLE 40 MG TABLET PO SCH (09:12)
--- NOTE | 2017-10-07 09:22 | CDI ---
Last Revision, July 2017 Documentation Clarification Form Date: 10/06/2017 3:11:00 PM Resubmitted 10/07/2017 From: Kelsi ParrishMELISSA villatoro, CCDS Admit Date: 10/02/2017 3:35:00 PM Patient Name: Kelsi Lal Visit Number: [id number] Discharge Date: ATTENTION: The Clinical Documentation Specialists (CDI) and [facility] Coding Staff appreciate your assistance in clarifying documentation. Please respond to the clarification below the line at the bottom and electronically sign. The CDI & [facility] Coding staff will review the response and follow-up if needed. Please note: Queries are made part of the Legal Health Record. If you have any questions, please contact the author of this message via ITS. Dr. Mimi Jung: Per the 10/03 Procedure Note: "Incision and drainage of large right breast abscess as well as debridement of necrotic tissue." History/Risk Factors: Hypertension, Atherosclerosis of extremities, previous postoperative infection. Clinical Indicators: Presented with a large abscess on right breast. Treatment: I&D & debridement of breast abscess. IV abx, Wound cultures pending. o Five elements required for accurate and compliant documentation of a debridement: o Technique used (e.g., excisional, excised, cutting, etc.) o Instrument(s) used (e.g., scalpel, curette, etc.) o Nature of the tissue removed (e.g., necrotic, devitalized tissues, non- viable tissue, etc.) o Appearance and size of the wound (e.g., down to fresh bleeding tissue, 7cm x 10cm, etc.) o Depth of the debridement* (e.g., skin, subcutaneous tissue, fascia, muscle , bone, etc.) In order to capture the severity of condition and code the appropriate procedure ; could you please document the following: Excisional debridement (the removal of necrotic, devitalized tissue or slough by means of cutting away of tissue) Non-excisional debridement (the removal of necrotic, devitalized tissue or slough by means of flushing, brushing, or washing. (Irrigation) Other; please specify Unable to determine (no explanation for clinical findings) Please continue to document in your progress notes and discharge summary in order to capture severity of illness and risk of mortality. Include clinical findings that support your diagnosis. MTDD
[2017-10-07 09:53] LABS: Calcium 7.7 mg/dL (8.4-10.2)
[2017-10-07 10:03] LABS: Potassium 2.7 mmol/L (3.5-5.1)
[2017-10-07] MEDS ORDERED: POTASSIUM CHLORIDE ER 20 MEQ TAB.ER PO STA (10:08)
[2017-10-07] MEDS ORDERED: POTASSIUM CHLORIDE 20 MEQ in SODIUM CHLORIDE 0.9% 100 ML IVPB STA (10:08)
[2017-10-07] MEDS: MULTIVITAMINS, THERA 1 EACH TAB PO SCH (11:14)
--- NOTE | 2017-10-07 13:08 | P.PN ---
Subjective Progress Note Date: 10/07/17 Principal diagnosis: Right breast abscess Patient is feeling better today, no pain in the breast area. She is still having diarrhea, about 3-4 bowel movements a day, watery stools. Having some nausea but no vomiting. No abdominal pain. Objective - Vital Signs Vital signs: Vital Signs Temp 96.6 F L 10/07/17 06:00 Pulse 73 10/07/17 06:00 Resp 18 10/07/17 06:00 BP 115/55 10/07/17 06:00 Pulse Ox 94 L 10/07/17 06:00 Intake & Output 10/06/17 10/07/17 10/07/17 18:59 06:59 18:59 Other: Voiding Method Bedside Commode # Voids 1 3 1 # Bowel Movements 2 1 - Exam Constitutional: No acute distress, conversant, pleasant Eyes: Anicteric sclerae, moist conjunctiva, no lid-lag, PERRLA ENMT: NC/AT,Oropharynx clear, no erythema, exudates Neck:Supple, FROM, no masses, or JVD, No carotid bruits; No thyromegaly Lungs: Clear to auscultation, Clear to percussion, Normal respiratory effort, no accessory muscle use Cardiovascular: Heart regular in rate and rhythm, No murmurs, gallops, or rubs no peripheral edema Abdominal: Multiple skin scars in the periumbilical area as well as the right groin from previous surgery, abdomen is soft, nontender, nom distended, no guarding, no rebound or rigidity, Normoactive bowel sounds No hepatomegaly, No splenomegaly, No palpable mass No abdominal wall hernia noted Skin: Normal temperature, tone, texture, turgor, No induration No subcutaneous nodules, right breast dressing packing in place Extremities:No digital cyanosis No clubbing, Pedal pulses intact and symmetrical Radial pulses intact and symmetrical Normal gait and station, No calf tenderness Psychiatric: Alert and oriented to person, place and time, Appropriate affect Intact judgement Neuro: Muscles Strength 5/5 in all 4 extremities, Sensation to light touch grossly present throughout, Cranial nerves II-XII grossly intact. No focal sensory deficits - Labs CBC & Chem 7: 10/04/17 04:56 10/07/17 08:48 Labs: Abnormal Lab Results - Last 24 Hours (Table) 10/07/17 Range/Units 08:48 Potassium 2.7 L* (3.5-5.1) mmol/L Chloride 115 H (98-107) mmol/L Carbon Dioxide 17 L (22-30) mmol/L Creatinine 2.13 H (0.52-1.04) mg/dL Calcium 7.7 L (8.4-10.2) mg/dL Microbiology - Last 24 Hours (Table) 10/02/17 13:30 Blood Culture - Preliminary Blood No Growth after 96 hours Assessment and Plan Plan: (1) Abscess of right breast * POD #4 status post I&D and debridement of necrotic breast tissue--- final pathology report ruled out inflammatory breast cancer * Wound cultures grew Proteus mirabilis * Switch ceftriaxone to ciprofloxacin because of severe diarrhea, will discuss with ID (2) Severe diarrhea Improving, switch antibiotics with ciprofloxacin (3) Hypokalemia Replace and follow in the afternoon (4) Acute renal failure: Likely secondary to dehydration because of diarrhea IV fluids Consult nephrology Avoid nephrotoxic medications Follow up creatinine daily (5) DVT prophylaxis: Ambulatory, low risk
[2017-10-07] MEDS ORDERED: DIPHENOX-ATROP 2.5-0.025 MG 1 EACH TAB PO PRN (13:18)
[2017-10-07] MEDS ORDERED: LEVOFLOXACIN 500MG-D5W PMX 500 MG in DEXTROSE/WATER 1 100ML.BAG IVPB ONE (13:30)
[2017-10-07 17:39] LABS: Calcium 7.5 mg/dL (8.4-10.2); Potassium 3.5 mmol/L (3.5-5.1)
[2017-10-08] MEDS: SODIUM CHLORIDE 0.9% 1,000 ML IV SCH ×3 (01:00→19:30)
[2017-10-08] MEDS: PANTOPRAZOLE 40 MG TABLET PO SCH (09:17)
[2017-10-08] MEDS: MULTIVITAMINS, THERA 1 EACH TAB PO SCH (13:00)
--- NOTE | 2017-10-08 13:38 | P.PN ---
Subjective Progress Note Date: 10/08/17 Principal diagnosis: Patient is seen and examined in follow-up for right breast abscess, depressed mood Patient was seen and examined today, denies any chest pain or trouble breathing denies any fevers or chills. However overnight she felt like she needs to talk to someone she feels depressed mood and extremely sad however denies any suicidal ideation. Otherwise she is tolerating diet denies any abdominal pain nausea or vomiting. Patient reported some diarrhea that's improving at this point Objective - Vital Signs Vital signs: Vital Signs Temp 97.7 F 10/08/17 07:00 Pulse 70 10/08/17 07:00 Resp 22 10/08/17 07:00 BP 121/63 10/08/17 07:00 Pulse Ox 99 10/08/17 07:00 Intake & Output 10/07/17 10/08/17 10/08/17 18:59 06:59 18:59 Other: Voiding Method Bedside Commode # Voids 3 4 # Bowel Movements 1 3 - Exam Constitutional: vital signs stable, Not in acute distress, pleasant, conversant Lungs: Clear to auscultation bilaterally, clear to percussion, normal respiratory effort no use of accessory muscles Cardiovascular: Regular rate and rhythm, no murmurs, no gallops, no rubs, no peripheral edema Gastrointestinal: Soft, no tenderness to palpation, no palpable hepatosplenomegally, bowel sounds positive, no abdominal wall hernias Extremities: No digital cyanosis or clubbing, peripheral pulses palpable and equal over bilateral radial arteries and dorsalis pedis artery, no calf muscle tenderness Psych: Alert, oriented to place, person and time, depressed affect, intact judgment Patient is wearing support bra which looks clean and dry, surgical dressing and packing in place there was just replaced prior to me visiting the patient looks dry and clean at this time - Labs CBC & Chem 7: 10/04/17 04:56 10/07/17 16:56 Labs: Abnormal Lab Results - Last 24 Hours (Table) 10/07/17 Range/Units 16:56 Chloride 117 H (98-107) mmol/L Carbon Dioxide 17 L (22-30) mmol/L Creatinine 2.00 H (0.52-1.04) mg/dL Glucose 100 H (74-99) mg/dL Calcium 7.5 L (8.4-10.2) mg/dL Microbiology - Last 24 Hours (Table) 10/02/17 13:30 Blood Culture - Preliminary Blood No Growth after 120 hours Assessment and Plan Assessment: 62-year-old female presented due to swelling and pain of the right breast along with drainage denies any injuries or traumas however when she applied some pressure to her breast she noticed large amount of purulent discharge coming out of her breast which got alarmed and made her come to the ED. Patient was terrified about once can happen next as she had bad experience from prior hospitalization for aortobifemoral bypass which was complicated by wound infection resulted in prolonged hospital course and later got significant wound infection resulted in extensive scarring and patient later on requiring prolonged rehab where she spent 5 months at rehab facility. Patient is currently status post I&D of the right breast and having daily packing performed by surgery team currently on Levaquin due to positive cultures with Proteus. Blood cultures are negative to date. Patient is being followed by general surgery and ID service. Today patient expressed depressed emotions and psych consult was requested for further evaluation. We are still managing to electrolyte imbalance and acute kidney injury which is thought to be due to drug induced with vancomycin nephrology service is assisting in her care (1) Abscess of right breast Narrative/Plan: Status post I&D postoperative day #5 Continue with Levaquin Daily surgical dressing Surgery team is following ID following Afebrile Blood cultures negative Right breast culture positive for Proteus Pathology result is negative for breast cancer Current Visit: Yes Status: Acute Code(s): N61.1 - ABSCESS OF THE BREAST AND NIPPLE SNOMED Code(s): 62279600 (2) Diarrhea Narrative/Plan: C. diff negative This currently improving thought to be due to medication side effect Current Visit: Yes Status: Acute Code(s): R19.7 - DIARRHEA, UNSPECIFIED SNOMED Code(s): 99525422 (3) Acute renal failure Narrative/Plan: This could be due to vancomycin side effect Nonoliguric Continue with IV fluid hydration Avoid nephrotoxic medications Nephrology is following Current Visit: Yes Status: Acute Code(s): N17.9 - ACUTE KIDNEY FAILURE, UNSPECIFIED SNOMED Code(s): 67821998 (4) Hypokalemia Narrative/Plan: This is currently resolved with replacement Continue to monitor closely Current Visit: Yes Status: Acute Code(s): E87.6 - HYPOKALEMIA SNOMED Code( s): 04148161 (5) Hypomagnesemia Narrative/Plan: Replace IV continue to monitor levels Current Visit: Yes Status: Acute Code(s): E83.42 - HYPOMAGNESEMIA SNOMED Code(s): 547250095 (6) Anemia Narrative/Plan: Microcytosis with iron deficiency component Iron supplementation No evidence of active bleeding at this time Current Visit: Yes Status: Acute Code(s): D64.9 - ANEMIA, UNSPECIFIED SNOMED Code(s): 878397951 (7) DVT prophylaxis Narrative/Plan: Heparin subcu 3 times a day Current Visit: Yes Status: Acute Code(s): TKY8467 - SNOMED Code(s): 630875272 (8) Depressed mood Narrative/Plan: Psych eval requested Current Visit: Yes Status: Acute Code(s): F32.9 - MAJOR DEPRESSIVE DISORDER , SINGLE EPISODE, UNSPECIFIED SNOMED Code(s): 939176378 Plan: Continue to monitor the patient and the patient randall for another at least 24 hours Continue to correct electrolytes and monitor Continue with current antibiotics Await psych eval
[2017-10-08] MEDS ORDERED: LEVOFLOXACIN 250MG-D5W PMX 250 MG in DEXTROSE/WATER 1 50ML.BAG IVPB SCH (14:00)
[2017-10-08] MEDS: LEVOFLOXACIN 250 MG TAB PO SCH (14:41)
[2017-10-08] MEDS ORDERED: POTASSIUM CHLORIDE ER 20 MEQ TAB.ER PO STA (15:31)
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
[2017-10-08] MEDS: SODIUM FERRIC GLUCONAT-SUCROSE 125 MG in SODIUM CHLORIDE 0.9% 100 ML IVPB SCH (17:03)
[2017-10-08] MEDS ORDERED: Magnesium Replacement Protocol 1 EACH MISC MISCELLANE PRN (17:16)
[2017-10-08] MEDS: HEPARIN SODIUM,PORCINE 5,000 UNIT/ML 1 ML VIAL SQ SCH (17:57)
[2017-10-08] MEDS: MAGNESIUM SULFATE-D5W PMX 1 GM in DEXTROSE/WATER 1 100ML.BAG IVPB SCH (19:30)
--- NOTE | 2017-10-08 20:26 | CONS ---
CONSULTATION REASON FOR CONSULT: Renal failure. HISTORY OF PRESENT ILLNESS: The patient is a 62-year-old female who was admitted to the hospital on 10/02/2017, with the severe pain in her right breast, she had increased drainage as well. The patient was found to have severe cellulitis and right breast abscess status post I and D with treatment of necrotic breast tissue. No evidence of breast cancer on the biopsy. The patient's serum creatinine has been about 2 and previously she was at 0.9 mg/dL on 10/04/2017 and 0.7 on 10/03/2017. Patient has not received any IV contrast this admission. Her blood pressure has been slightly on the lower side with systolic of 109-105 mmHg. I do see Motrin on her med list and she gets Toradol as well. In terms of antibiotics, currently patient is on Levaquin. The patient is maintained on IV fluids at 100 mL an hours. She states she has been voiding well. PAST MEDICAL HISTORY: Significant for endometriosis, coronary artery disease. PAST SURGICAL HISTORY: Appendectomy, bowel resection, coronary artery bypass surgery, hysterectomy, surgery for a breast cyst, aortic bypass surgery. SOCIAL HISTORY: Patient is a former smoker. No history of drug abuse or alcohol abuse. MEDICATIONS: Included Tylenol occasionally. No allergies for medications. REVIEW OF SYSTEMS: As per HPI. Other systems negative. PHYSICAL EXAMINATION: Currently patient is comfortable, awake, alert, and oriented x3. She is not in any acute distress. Blood pressure is 134/74, heart rate 75 per minute. Patient is afebrile. Examination of the heart: S1, S2. Examination of lungs: Bilateral breath sounds are heard. Abdomen is soft, nontender. Examination of lower extremities shows no significant edema. WAREHOUSEMAN exam is grossly intact. LAB DATA: Sodium 140, potassium 3.5, chloride 117, CO2 of 17, BUN 12, serum creatinine 2.0, calcium was 7.5, iron saturation is ASSESSMENT: 1. Acute kidney injury secondary to nonsteroidal anti-inflammatory agents and hypoperfusion. Currently nonoliguric. Continue with IV fluids. Discontinue the Motrin. Check urinalysis. Patient's vancomycin level was also elevated at 35, which probably also contributed to her acute kidney injury. 2. Hypokalemia. Will replace. 3. Rule out hypomagnesemia. This patient has been on Protonix. 4. Iron deficiency. Replace with IV iron given the severity and renal failure. 5. Right breast abscess, status post I and D and debridement of necrotic breast tissue. PLAN: Continue off of vancomycin, replace iron with IV iron, DC Toradol and Motrin and repeat labs in a.m. Continue with IV fluids. Thank you for this consultation. We will continue to follow the patient with you during her hospitalization. MMODL / IJN: [id number] /
[2017-10-09] MEDS: MAGNESIUM SULFATE-D5W PMX 1 GM in DEXTROSE/WATER 1 100ML.BAG IVPB SCH (00:10)
[2017-10-09] MEDS: HEPARIN SODIUM,PORCINE 5,000 UNIT/ML 1 ML VIAL SQ SCH ×4 (00:11→22:47)
[2017-10-09] MEDS ORDERED: MAGNESIUM OXIDE 400 MG TAB PO STA (00:12)
[2017-10-09] MEDS: SODIUM CHLORIDE 0.9% 1,000 ML IV SCH (04:27)
[2017-10-09] MEDS: ESCITALOPRAM 5 MG TAB PO SCH (08:40)
[2017-10-09] MEDS: PANTOPRAZOLE 40 MG TABLET PO SCH (08:40)
[2017-10-09] MEDS: MULTIVITAMINS, THERA 1 EACH TAB PO SCH (08:40)
[2017-10-09] MEDS: SODIUM FERRIC GLUCONAT-SUCROSE 125 MG in SODIUM CHLORIDE 0.9% 100 ML IVPB SCH (08:41)
--- NOTE | 2017-10-09 08:48 | P.PN ---
Subjective Progress Note Date: 10/08/17 Principal diagnosis: Pain right breast 62-year-old female presents emergency center with a many month history of increasing difficulties related to her right breast. This anxious from relates that she started to have difficulty with some swelling erythema and tenderness to the right breast without known trauma or injury. She applied some local care but when the breast open and started to drain copious amounts of purulent material she presented to the emergency center for intervention. Is noted she's been seen by the surgeon and taken to the operating room incision and drainage of the large right breast abscess. There is still some packing in place at this time. The patient relates to being terrified about was going to happen to her next. She has a history of an aortobifem bypass performed at an outside facility that was fraught with complications. It appears that she developed significant wound infection of the abdominal site and possibly of the left femoral site is noted by the extensive scarring. The patient relates that she was hospitalized for many weeks and then spent 5 months in an extended care facility in the [facility] which is far from her home. She relates that eventually her mother's tax attorney was able to have her freed from the intermediate to go back to live in the home setting. She relates that she still has weakness and has difficulty navigating the steps of the home and she has a friend who does most of the shopping for her. She relates that she is able to navigate within the home is able to perform some of her as well as meal ADL's a well as meal preps. She this time is denying significant fever, chills or rigors. Breasts is forcing very uncomfortable. And she is denying any other interim new discomforts. Denies nausea or emesis, denies diarrhea or other difficulties with current antibiotic therapy. The left breast is without difficulty. 10/06/2017 patient has had a rough day. She which is cried quite a bit throughout the day because she is so worried was going to happen to her. She is spent 5 months the intermediate and just does not want to go back to that facility. She fortunately is feeling slightly better. She's been able to eat mostly throughout the day. Is denying nausea or emesis but just does not feel well overall. Pain to the right breast is minimal. October 08, 2017 patient is now feeling considerably better. Her diarrhea is much improved. But having abdominal pain. Having no significant right breast pain. Mostly feeling a bit better today. As she is having improvement she likely will go back to her home setting, she is desperate to not go to an extended care facility. Objective - Vital Signs Vital signs: Vital Signs Temp 97.3 F L 10/09/17 07:00 Pulse 75 10/09/17 07:00 Resp 16 10/09/17 07:00 BP 125/67 10/09/17 07:00 Pulse Ox 99 10/09/17 07:00 Intake & Output 10/08/17 10/09/17 10/09/17 18:59 06:59 18:59 Intake Total 950 Balance 950 Intake: Oral 950 Other: # Voids 2 2 - Exam 62-year-old who is modestly comfortable denying significant amounts of pain HEENT: Anicteric conjunctiva are pink and moist nasal mucosa grossly intact without significant lesions, there is no thrush. Neck: The neck is supple without significant lymphadenopathy or thyromegaly. Lungs: Symmetrical air entry with few expiratory wheezing but no bronchial sounds no dullness or egophony Heart: Regular rate and rhythm with an audible S1-S2, no S3 positive S4. There is no significant murmur click or rub, PMI was nondisplaced. Abdomen: Positive bowel sounds soft and nontender without palpable masses or organomegaly. There was no guarding or rebound. Extremities: The upper extremities have excellent pulses they are symmetric, no significant petechiae or telangiectasia. No splinter hemorrhages were noted. Lower extremities have chronic venous stasis changes. No open ulcerations are seen. The feet are not cold with palpable pulses. Skin: The abdominal wall has evidence of the prior surgical intervention that has evidence of the extensive scar from the prior infection and still has an area of some hyperkeratotic tissue in the midline abdominal scar. With the nurse present the breast evaluation occurs with evidence of any abscess to the left breast. Repair shows evidence of the recent surgical intervention and the sutures are in place with the mid breast packing from the abscess. There is no expressible purulence at this time. There is still a significant amount of induration related to the infection with tenderness on manipulation, but denies severe pain. Neuro: Awake alert oriented to person place and time. There are no acute new gross focal sensory motor deficits. - Labs CBC & Chem 7: 10/04/17 04:56 03/07/18 16:56 Labs: Abnormal Lab Results - Last 24 Hours (Table) 10/08/17 Range/Units 16:23 Magnesium 1.5 L (1.6-2.3) mg/dL Microbiology - Last 24 Hours (Table) 10/02/17 13:30 Blood Culture - Final Blood No Growth after 144 hours Laboratory Results WBC 10.0 k/uL (3.8-10.6) 10/04/17 04:56 RBC 2.63 m/uL (3.80-5.40) L 10/04/17 04:56 Hgb 8.5 gm/dL (11.4-16.0) L 10/04/17 04:56 Hct 28.8 % (34.0-46.0) L 10/04/17 04:56 MCV 109.4 fL (80.0-100.0) H 10/04/17 04:56 MCH 32.4 pg (25.0-35.0) 10/04/17 04:56 MCHC 29.7 g/dL (31.0-37.0) L 10/04/17 04:56 RDW 22.5 % (11.5-15.5) H 10/04/17 04:56 Plt Count 376 k/uL (150-450) 10/04/17 04:56 Neutrophils % 89 % 10/04/17 04:56 Lymphocytes % 6 % 10/04/17 04:56 Monocytes % 3 % 10/04/17 04:56 Eosinophils % 1 % 10/04/17 04:56 Basophils % 0 % 10/04/17 04:56 Neutrophils # 8.9 k/uL (1.3-7.7) H 10/04/17 04:56 Lymphocytes # 0.6 k/uL (1.0-4.8) L 10/04/17 04:56 Monocytes # 0.3 k/uL (0-1.0) 10/04/17 04:56 Eosinophils # 0.1 k/uL (0-0.7) 10/04/17 04:56 Basophils # 0.0 k/uL (0-0.2) 10/04/17 04:56 Polychromasia Present 10/02/17 13:30 Hypochromasia Marked 10/04/17 04:56 Anisocytosis Moderate 10/04/17 04:56 Macrocytosis Marked 10/04/17 04:56 Retic Count 1.7 % (0.5-2.0) 10/06/17 07:25 PT 10.8 sec (9.0-12.0) 10/02/17 13:30 INR 1.1 (<1.2) 10/02/17 13:30 APTT 24.3 sec (22.0-30.0) 10/02/17 13:30 Sodium 143 mmol/L (137-145) 10/07/17 16:56 Potassium 3.5 mmol/L (3.5-5.1) 10/07/17 16:56 Chloride 117 mmol/L (98-107) H 10/07/17 16:56 Carbon Dioxide 17 mmol/L (22-30) L 10/07/17 16:56 Anion Gap 9 mmol/L 10/07/17 16:56 BUN 12 mg/dL (7-17) 10/07/17 16:56 Creatinine 2.00 mg/dL (0.52-1.04) H 10/07/17 16:56 Est GFR (MDRD) Af Amer 30 (>60 ml/min/1.73 sqM) 10/06/17 07:25 Est GFR (MDRD) Non-Af 25 (>60 ml/min/1.73 sqM) 10/06/17 07:25 Est GFR (CKD-EPI)AfAm 30 (>60 ml/min/1.73 sqM) 10/07/17 16:56 Est GFR (CKD-EPI)NonAf 26 (>60 ml/min/1.73 sqM) 10/07/17 16:56 Glucose 100 mg/dL (74-99) H 10/07/17 16:56 Plasma Lactic Acid [place] 1.1 mmol/L (0.7-2.0) 10/05/17 08:17 Calcium 7.5 mg/dL (8.4-10.2) L 10/07/17 16:56 Magnesium 1.5 mg/dL (1.6-2.3) L 10/08/17 16:23 Iron 18 ug/dL (50-170) L 10/06/17 07:25 TIBC 178 ug/dL (228-460) L 10/06/17 07:25 Iron Saturation 10.11 (12.00-45.00) L 10/06/17 07:25 Total Bilirubin 0.8 mg/dL (0.2-1.3) 10/02/17 13:30 AST 24 U/L (14-36) 10/02/17 13:30 ALT 14 U/L (9-52) 10/02/17 13:30 Alkaline Phosphatase 110 U/L (38-126) 10/02/17 13:30 Total Protein 7.2 g/dL (6.3-8.2) 10/02/17 13:30 Albumin 3.4 g/dL (3.5-5.0) L 10/02/17 13:30 Urine Eosinophils 0 % 10/08/17 18:40 Vancomycin Trough 35.0 ug/mL H* 10/04/17 04:56 C. difficile (EIA) Intrp Negative (Negative) 10/06/17 16:40 Microbiology 10/02/17 13:30 Blood Blood Culture - Final No Growth after 144 hours 10/03/17 12:45 Breast - Right Gram Stain - Final 10/03/17 12:45 Breast - Right Wound Culture - Final Proteus mirabilis 10/03/17 12:45 Breast - Right Anaerobic Culture - Final 10/02/17 13:30 Breast - Right Gram Stain - Final 10/02/17 13:30 Breast - Right Wound Culture - Final Proteus mirabilis Assessment and Plan (1) Abscess of right breast Narrative/Plan: 62-year-old woman presents to the emergency center with significant pain swelling and drainage from her right breast. She noted by surgery and has had the incision and drainage to the significant breast abscess. Wound culture is showing evidence of the Proteus mirabilis infection of the breast. She's doing well at this point in time and is having some further improvement with the current antibiotic therapy. She's been followed by the surgeon and we are awaiting pathology. Antimicrobial therapy may be streamlined to Rocephin at this time. Potentially will be utilizing oral antibiotic therapy. The patient is adamant that she does not want outpatient intravenous antibiotic therapy nor wants to go to the intermediate. She cries and is very upset about the potential thought of going back to the intermediate. She relates that her 5 months was like being in custodial and does not want to go back. She fortunately he is not having severe pain and the amount of drainage is improved. We'll work with the discharge planners as to potential outpatient antibiotic therapy and local wound care with home care nurse. Patient would do well to have improved nutrition, a multivitamin and will evaluate her iron stores and supplement as indicated. 10/06/2017 reveals the patient to be improved. But does complain that she is not feeling well overall. Her creatinine is increased and we'll give her a fluid bolus to recheck her creatinine the morning. Encouraged to drink her fluids. She had significant diarrhea that has now resolved. Again encouraging her to eat her meals to the best her ability. With antibiotic change from Zosyn to Rocephin but expect her to have less diarrhea. Likely will be discharged home on oral antibiotic therapy with ciprofloxacin when she is ready for discharge. October 08, 2017 the patient is had further improvement. With alteration of her antibiotic therapy her profuse diarrhea has resolved. She's having no, pain. Generally feeling considerably better. Denies fevers chills rigors or sweats. The breast is without pain. It was repacked today and was no pain at all with the repacking. Discharge planning is proceeding will need home care at home to pack her breast. She will be discharged on oral ciprofloxacin. Current Visit: Yes Status: Acute Code(s): N61.1 - ABSCESS OF THE BREAST AND NIPPLE SNOMED Code(s): 87945630 (2) Atherosclerotic peripheral vascular disease Current Visit: Yes Status: Acute Code(s): I70.209 - UNSP ATHSCL [facility] ARTERIES OF EXTREMITIES, UNSP EXTREMITY SNOMED Code(s): 887163294
[2017-10-09 09:02] LABS: Anisocytosis Moderate; Basophils % (A) 1 %; Eosinophils # (A) 0.3 k/uL (0-0.7); Eosinophils % (A) 5 %; HCT 27.1 % (34.0-46.0); HGB 8.5 gm/dL (11.4-16.0); Hypochromasia Moderate; Lymphocytes # (A) 1.1 k/uL (1.0-4.8); Lymphocytes % (A) 21 %; MCH 32.5 pg (25.0-35.0); MCHC 31.2 g/dL (31.0-37.0); Macrocytosis Marked; Mean Platelet Volume 7.4; Monocytes # (A) 0.3 k/uL (0-1.0); Monocytes % (A) 5 %; Neutrophils # (A) 3.6 k/uL (1.3-7.7); Neutrophils % (A) 66 %; Platelet Count 240 k/uL (150-450); RDW 21.7 % (11.5-15.5); WBC 5.4 k/uL (3.8-10.6)
[2017-10-09 09:14] LABS: MCV 104.3 fL (80.0-100.0)
[2017-10-09 09:28] LABS: Calcium 7.9 mg/dL (8.4-10.2); Magnesium 1.8 mg/dL (1.6-2.3); Potassium 3.3 mmol/L (3.5-5.1)
[2017-10-09] MEDS ORDERED: POTASSIUM CHLORIDE ER 20 MEQ TAB.ER PO STA (10:22)
[2017-10-09 10:53] LABS: Poikilocytosis (M) Present
[2017-10-09] MEDS: FERROUS SULFATE 325 MG TAB PO SCH ×2 (11:14→16:23)
[2017-10-09] MEDS ORDERED: LOPERAMIDE 2 MG CAP PO PRN (14:08)
--- NOTE | 2017-10-09 15:42 | P.PN ---
Progress Note - Text Progress Note Date: 10/09/17 Interval History: Patient is a 62-year-old female who is being seen in follow- up to a consultation. She states that she is doing better today, much less tearful and she states that she had a conversation with her mother and her mother was pleasant during this conversation. Patient states that the plan is for her to return home tomorrow and she states that a good friend of hers will able to spend the day with her and they have discussed how to get her into the house using a wheelchair. Patient states that she is comfortable with this plan. She states she is able to ambulate in her house using a walker without difficulty. Patient states that she was also given referrals to [facility] social media senior associate who may also be able to make home visits and the patient was pleased with this information. Mental Status: Appearance/Attitude: Patient is lying in a hospital bed, in no acute distress makes good eye contact and is cooperative. Behavior: Patient does not display any psychomotor agitation or retardation. Speech/Language: Patient's speech is spontaneous and of normal volume and rhythm and she is coherent. Thought Process: Patient is goal-directed there is no evidence of circumstantial or tangential thought and no loose associations or flight of ideas. Thought Content: Patient denies auditory or visual hallucinations no delusions or paranoid ideation were elicited. Patient states that she is not as tearful today and had a pleasant conversation with her mother. She is also happy with the discharge plan of her returning to her home tomorrow, has a friend who will be spending the day with her and assist her in setting up her home. Patient states that she slept better last evening and that her appetite has improved. Suicidal/Homicidal Ideation: Patient denies any current suicidal or homicidal ideation. Sensorium/Cognition: Patient is alert and oriented to person, place, and time and her recent and remote memory are grossly intact. Mood/Affect: Patient's mood is more upbeat and her affect is brighter Insight/Judgment: Patient's insight and judgment are intact Assessment: Patient reports feeling better today, she was less tearful and states that a conversation with her mother went better today but she is aware that this may not always be the case. Patient is happy to report that she will be returning home tomorrow and states that her good friend will be there with her tomorrow to assist her in getting set up at home. Patient was also given referrals to [facility] social media senior associate and states that they may be able to make home visits and she states that this will be of great assistance to her. Patient reports no side effects from the medication. Plan: Patient is currently on Lexapro 5 mg daily and I would continue this medication on discharge. Patient was given referral to [facility] social media senior associate and she will contact them for follow-up care and possible home visits. I will sign off the case at this time.
[2017-10-09] MEDS: LEVOFLOXACIN 250 MG TAB PO SCH (16:06)
--- NOTE | 2017-10-09 16:09 | PN ---
PROGRESS NOTE Patient is seen for followup for acute kidney injury secondary to some degree of hypoperfusion as well as vancomycin toxicity. Vancomycin level was elevated at 35 on 10/04/2017. Patient's renal function has been improving. She was maintained on IV fluids. Serum creatinine is down to 1.75 from 2.0 mg/dL yesterday. Her IV came out and patient is looking forward to being discharged today. On examination, blood pressure is 125/67, heart rate 75 per minute. She is afebrile. EXAMINATION OF THE HEART: S1, S2. EXAMINATION OF LUNGS: Bilateral breath sounds are heard. ABDOMEN: Soft, non-tender. Examination of lower extremities shows no significant edema. CLAIMS COLLECTOR exam is grossly intact. Patient is moving all 4 extremities. Labs show sodium 143, potassium 3.3, chloride 120. CO2 is 15, BUN 9, serum creatinine 1.75, hemoglobin 8.5 g/dL. ASSESSMENT: 1. Acute kidney injury secondary to nonsteroidal anti-inflammatory agents, hypoperfusion and some degree of vancomycin toxicity, currently improving. IV fluids were discontinued, as patient's IV came out, and she is looking forward to possibly going home. She is advised to continue to avoid use of NSAIDs and maintain adequate oral intake. Patient will need repeat labs to be done if she is discharged. At this time she states she is not able to follow up as outpatient, and Visiting Phys[facility] and home care are being arranged at this time. 2. Hypokalemia. Will continue to replace. 3. Iron deficiency, started on IV iron but not able to receive another dose, as the IV came out. 4. Right breast abscess, status post incision and drainage and debridement of necrotic breast tissue, maintained on antibiotics. 5. Metabolic acidosis secondary to renal failure. PLAN: Start oral sodium bicarb. Replace potassium. Patient can be discharged from nephrology standpoint. However, she will need to have her labs drawn in 3 to 4 days as outpatient with close monitoring of labs as outpatient. MMODL / IJN: [id number] /
--- NOTE | 2017-10-09 16:34 | P.PN ---
Subjective Progress Note Date: 10/09/17 Principal diagnosis: Patient is seen and examined in follow-up for right breast abscess, depressed mood, RAYSHAWN, diarrhea Patient was seen and examined today, denies any chest pain or trouble breathing denies any fevers or chills. She reports that diarrhea has worsened again, and sounds a lot of frustration with this matter , otherwise, she feels better after talking to the psychiatrist, continues to deny any suicidal ideation. She again refuses to go to any [facility] due to poor past experience and prolonged stay . She reports good appetite. and denies any pain in her right breast Objective - Vital Signs Vital signs: Vital Signs Temp 98.0 F 10/09/17 15:00 Pulse 71 10/09/17 15:00 Resp 16 10/09/17 15:00 BP 122/64 10/09/17 15:00 Pulse Ox 98 10/09/17 15:00 Intake & Output 10/08/17 10/09/17 10/09/17 18:59 06:59 18:59 Intake Total 950 Balance 950 Weight 68.039 kg Intake: Oral 950 Other: # Voids 2 2 1 - Exam Constitutional: vital signs stable, Not in acute distress, pleasant, conversant Lungs: Clear to auscultation bilaterally, clear to percussion, normal respiratory effort Cardiovascular: Regular rate and rhythm, no murmurs, no gallops, no rubs, no peripheral edema Gastrointestinal: Soft, no tenderness to palpation, bowel sounds positive, no abdominal wall hernias Extremities: No digital cyanosis or clubbing, peripheral pulses palpable and equal over bilateral radial arteries and dorsalis pedis artery, no calf muscle tenderness Psych: Alert, oriented to place, person and time, depressed affect Patient had surgical dressing changed on her right breast abscess, she denies any pain - Labs CBC & Chem 7: 10/09/17 08:01 10/09/17 08:01 Labs: Abnormal Lab Results - Last 24 Hours (Table) 10/08/17 10/09/17 10/09/17 Range/Units 16:23 08:01 08:01 RBC 2.60 L (3.80-5.40) m/uL Hgb 8.5 L (11.4-16.0) gm/dL Hct 27.1 L (34.0-46.0) % MCV 104.3 H D (80.0-100.0) fL RDW 21.7 H (11.5-15.5) % Potassium 3.3 L (3.5-5.1) mmol/L Chloride 120 H* (98-107) mmol/L Carbon Dioxide 15 L (22-30) mmol/L Creatinine 1.75 H (0.52-1.04) mg/dL Calcium 7.9 L (8.4-10.2) mg/dL Magnesium 1.5 L (1.6-2.3) mg/dL Microbiology - Last 24 Hours (Table) 10/02/17 13:30 Blood Culture - Final Blood No Growth after 144 hours Assessment and Plan Assessment: 62-year-old female presented due to swelling and pain of the right breast along with drainage denies any injuries or traumas however when she applied some pressure to her breast she noticed large amount of purulent discharge coming out of her breast which got alarmed and made her come to the ED. Patient was terrified about once can happen next as she had bad experience from prior hospitalization for aortobifemoral bypass which was complicated by wound infection resulted in prolonged hospital course and later got significant wound infection resulted in extensive scarring and patient later on requiring prolonged rehab where she spent 5 months at rehab facility. Patient is currently status post I&D of the right breast and having daily packing performed by surgery team currently on Levaquin due to positive cultures with Proteus. Blood cultures are negative to date. Patient is being followed by general surgery and ID service. Today patient expressed depressed emotions and psych consult was requested for further evaluation. We are still managing to electrolyte imbalance and acute kidney injury which is thought to be due to drug induced with vancomycin nephrology service is assisting in her care, this is slowly improving , however, patient still complaining of diarrhea today non bloody . Patient will be switched to ciprofloxacin upon discharge, and will get wound dressing change at home with visiting nurse. (1) Abscess of right breast Narrative/Plan: Status post I&D postoperative day #6 Continue with Levaquin Daily surgical dressing Surgery team is following ID following Afebrile Blood cultures negative Right breast culture positive for Proteus Pathology result is negative for breast cancer cipro upon discharge Current Visit: Yes Status: Acute Code(s): N61.1 - ABSCESS OF THE BREAST AND NIPPLE SNOMED Code(s): 56058715 (2) Diarrhea Narrative/Plan: C. diff negative This currently improving thought to be due to medication side effect loperamide PRN for diarrhea Current Visit: Yes Status: Acute Code(s): R19.7 - DIARRHEA, UNSPECIFIED SNOMED Code(s): 41285573 (3) Acute renal failure Narrative/Plan: This could be due to vancomycin side effect Nonoliguric Avoid nephrotoxic medications Nephrology is following started on bicarb PO replace and correct electrolytes Current Visit: Yes Status: Acute Code(s): N17.9 - ACUTE KIDNEY FAILURE, UNSPECIFIED SNOMED Code(s): 13445568 (4) Hypokalemia Narrative/Plan: continue to monitor and replace as needed Current Visit: Yes Status: Acute Code(s): E87.6 - HYPOKALEMIA SNOMED Code( s): 39657127 (5) Hypomagnesemia Narrative/Plan: monitor and replace as needed Current Visit: Yes Status: Acute Code(s): E83.42 - HYPOMAGNESEMIA SNOMED Code(s): 104797359 (6) Anemia Narrative/Plan: Microcytosis with iron deficiency component Iron supplementation No evidence of active bleeding at this time Current Visit: Yes Status: Acute Code(s): D64.9 - ANEMIA, UNSPECIFIED SNOMED Code(s): 436967390 (7) DVT prophylaxis Narrative/Plan: Heparin subcu 3 times a day Current Visit: Yes Status: Acute Code(s): NKO5212 - SNOMED Code(s): 809619172 (8) Depressed mood Narrative/Plan: Psych evaluated the patient , she was started on SSRI Current Visit: Yes Status: Acute Code(s): F32.9 - MAJOR DEPRESSIVE DISORDER , SINGLE EPISODE, UNSPECIFIED SNOMED Code(s): 260743370 Plan: follow up electrolytes and renal function Cipro upon discharge, and home care for dressing changes patient could not be discharged today , due to no family members are available to receive her at home patient refuses to go to [facility] possible discharge in AM
[2017-10-09] MEDS: SODIUM BICARBONATE TAB 650 MG TAB PO SCH (20:11)
--- NOTE | 2017-10-09 23:31 | P.PN ---
Subjective Progress Note Date: 10/09/17 Principal diagnosis: Pain right breast 62-year-old female presents emergency center with a many month history of increasing difficulties related to her right breast. This anxious from relates that she started to have difficulty with some swelling erythema and tenderness to the right breast without known trauma or injury. She applied some local care but when the breast open and started to drain copious amounts of purulent material she presented to the emergency center for intervention. Is noted she's been seen by the surgeon and taken to the operating room incision and drainage of the large right breast abscess. There is still some packing in place at this time. The patient relates to being terrified about was going to happen to her next. She has a history of an aortobifem bypass performed at an outside facility that was fraught with complications. It appears that she developed significant wound infection of the abdominal site and possibly of the left femoral site is noted by the extensive scarring. The patient relates that she was hospitalized for many weeks and then spent 5 months in an extended care facility in the [facility] which is far from her home. She relates that eventually her mother's real estate associate attorney was able to have her freed from the [facility] to go back to live in the home setting. She relates that she still has weakness and has difficulty navigating the steps of the home and she has a friend who does most of the shopping for her. She relates that she is able to navigate within the home is able to perform some of her as well as meal ADL's a well as meal preps. She this time is denying significant fever, chills or rigors. Breasts is forcing very uncomfortable. And she is denying any other interim new discomforts. Denies nausea or emesis, denies diarrhea or other difficulties with current antibiotic therapy. The left breast is without difficulty. 10/06/2017 patient has had a rough day. She which is cried quite a bit throughout the day because she is so worried was going to happen to her. She is [facility] and just does not want to go back to that facility. She fortunately is feeling slightly better. She's been able to eat mostly throughout the day. Is denying nausea or emesis but just does not feel well overall. Pain to the right breast is minimal. October 08, 2017 patient is now feeling considerably better. Her diarrhea is much improved. But having abdominal pain. Having no significant right breast pain. Mostly feeling a bit better today. As she is having improvement she likely will go back to her home setting, she is desperate to not go to an extended care facility. 10/09/2017 reveals the patient to be much improved today. Her pain is improved. She is eating well. Appetite is good. No nausea or emesis. Denies shortness of breath. Her anxiety is considerably improved in that she know she' ll be going to her home setting in the next day or so. Is not crying and upset today. Her diarrhea has also resolved. She's felt in some time. Objective - Vital Signs Vital signs: Vital Signs Temp 98.0 F 10/09/17 15:00 Pulse 71 10/09/17 15:00 Resp 16 10/09/17 15:00 BP 122/64 10/09/17 15:00 Pulse Ox 98 10/09/17 15:00 Intake & Output 10/09/17 10/09/17 10/10/17 06:59 18:59 06:59 Weight 68.039 kg Other: # Voids 2 1 - Exam 62-year-old who is modestly comfortable denying significant amounts of pain HEENT: Anicteric conjunctiva are pink and moist nasal mucosa grossly intact without significant lesions, there is no thrush. Neck: The neck is supple without significant lymphadenopathy or thyromegaly. Lungs: Symmetrical air entry with few expiratory wheezing but no bronchial sounds no dullness or egophony Heart: Regular rate and rhythm with an audible S1-S2, no S3 positive S4. There is no significant murmur click or rub, PMI was nondisplaced. Abdomen: Positive bowel sounds soft and nontender without palpable masses or organomegaly. There was no guarding or rebound. Extremities: The upper extremities have excellent pulses they are symmetric, no significant petechiae or telangiectasia. No splinter hemorrhages were noted. Lower extremities have chronic venous stasis changes. No open ulcerations are seen. The feet are not cold with palpable pulses. Skin: The abdominal wall has evidence of the prior surgical intervention that has evidence of the extensive scar from the prior infection and still has an area of some hyperkeratotic tissue in the midline abdominal scar. With the nurse present the breast evaluation occurs with evidence of any abscess to the left breast. Repair shows evidence of the recent surgical intervention and the sutures are in place with the mid breast packing from the abscess. There is no expressible purulence at this time. There is still a significant amount of induration related to the infection with tenderness on manipulation, but denies severe pain. Neuro: Awake alert oriented to person place and time. There are no acute new gross focal sensory motor deficits. - Labs CBC & Chem 7: 10/09/17 08:01 10/09/17 08:01 Labs: Abnormal Lab Results - Last 24 Hours (Table) 10/09/17 10/09/17 Range/Units 08: 08:01 RBC 2.60 L (3.80-5.40) m/uL Hgb 8.5 L (11.4-16.0) gm/dL Hct 27.1 L (34.0-46.0) % MCV 104.3 H D (80.0-100.0) fL RDW 21.7 H (11.5-15.5) % Potassium 3.3 L (3.5-5.1) mmol/L Chloride 120 H* (98-107) mmol/L Carbon Dioxide 15 L (22-30) mmol/L Creatinine 1.75 H (0.52-1.04) mg/dL Calcium 7.9 L (8.4-10.2) mg/dL Laboratory Results WBC 5.4 k/uL (3.8-10.6) 10/09/17 08:01 RBC 2.60 m/uL (3.80-5.40) L 10/09/17 08:01 Hgb 8.5 gm/dL (11.4-16.0) L 10/09/17 08:01 Hct 27.1 % (34.0-46.0) L 10/09/17 08:01 MCV 104.3 fL (80.0-100.0) H D 10/09/17 08:01 MCH 32.5 pg (25.0-35.0) 10/09/17 08:01 MCHC 31.2 g/dL (31.0-37.0) 10/09/17 08:01 RDW 21.7 % (11.5-15.5) H 10/09/17 08:01 Plt Count 240 k/uL (150-450) 10/09/17 08:01 Neutrophils % 66 % 10/09/17 08:01 Lymphocytes % 21 % 10/09/17 08:01 Monocytes % 5 % 10/09/17 08:01 Eosinophils % 5 % 10/09/17 08:01 Basophils % 1 % 10/09/17 08:01 Neutrophils # 3.6 k/uL (1.3-7.7) 10/09/17 08:01 Lymphocytes # 1.1 k/uL (1.0-4.8) 10/09/17 08:01 Monocytes # 0.3 k/uL (0-1.0) 10/09/17 08:01 Eosinophils # 0.3 k/uL (0-0.7) 10/09/17 08:01 Basophils # 0.0 k/uL (0-0.2) 10/09/17 08:01 Manual Slide Review Performed 10/09/17 08:01 Polychromasia Present 10/02/17 13:30 Hypochromasia Moderate 10/09/17 08:01 Poikilocytosis (manual Present 10/09/17 08:01 Anisocytosis Moderate 10/09/17 08:01 Macrocytosis Marked 10/09/17 08:01 Retic Count 1.7 % (0.5-2.0) 10/06/17 07:25 PT 10.8 sec (9.0-12.0) 10/02/17 13:30 INR 1.1 (<1.2) 10/02/17 13:30 APTT 24.3 sec (22.0-30.0) 10/02/17 13:30 Sodium 143 mmol/L (137-145) 10/09/17 08:01 Potassium 3.3 mmol/L (3.5-5.1) L 10/09/17 08:01 Chloride 120 mmol/L (98-107) H* 10/09/17 08:01 Carbon Dioxide 15 mmol/L (22-30) L 10/09/17 08:01 Anion Gap 8 mmol/L 10/09/17 08:01 BUN 9 mg/dL (7-17) 10/09/17 08:01 Creatinine 1.75 mg/dL (0.52-1.04) H 10/09/17 08:01 Est GFR (MDRD) Af Amer 30 (>60 ml/min/1.73 sqM) 10/06/17 07:25 Est GFR (MDRD) Non-Af 25 (>60 ml/min/1.73 sqM) 10/06/17 07:25 Est GFR (CKD-EPI)AfAm 35 (>60 ml/min/1.73 sqM) 10/09/17 08:01 Est GFR (CKD-EPI)NonAf 31 (>60 ml/min/1.73 sqM) 10/09/17 08:01 Glucose 78 mg/dL (74-99) 10/09/17 08:01 Plasma Lactic Acid [place] 1.1 mmol/L (0.7-2.0) 10/05/17 08:17 Calcium 7.9 mg/dL (8.4-10.2) L 10/09/17 08:01 Magnesium 1.8 mg/dL (1.6-2.3) 10/09/17 08:01 Iron 18 ug/dL (50-170) L 10/06/17 07:25 TIBC 178 ug/dL (228-460) L 10/06/17 07:25 Iron Saturation 10.11 (12.00-45.00) L 10/06/17 07:25 Total Bilirubin 0.8 mg/dL (0.2-1.3) 10/02/17 13:30 AST 24 U/L (14-36) 10/02/17 13:30 ALT 14 U/L (9-52) 10/02/17 13:30 Alkaline Phosphatase 110 U/L (38-126) 10/02/17 13:30 Total Protein 7.2 g/dL (6.3-8.2) 10/02/17 13:30 Albumin 3.4 g/dL (3.5-5.0) L 10/02/17 13:30 Urine Eosinophils 0 % 10/08/17 18:40 Vancomycin Trough 35.0 ug/mL H* 10/04/17 04:56 C. difficile (EIA) Intrp Negative (Negative) 10/06/17 16:40 Microbiology 10/02/17 13:30 Blood Blood Culture - Final No Growth after 144 hours 10/03/17 12:45 Breast - Right Gram Stain - Final 10/03/17 12:45 Breast - Right Wound Culture - Final Proteus mirabilis 10/03/17 12:45 Breast - Right Anaerobic Culture - Final 10/02/17 13:30 Breast - Right Gram Stain - Final 10/02/17 13:30 Breast - Right Wound Culture - Final Proteus mirabilis Assessment and Plan (1) Abscess of right breast Narrative/Plan: 62-year-old woman presents to the emergency center with significant pain swelling and drainage from her right breast. She noted by surgery and has had the incision and drainage to the significant breast abscess. Wound culture is showing evidence of the Proteus mirabilis infection of the breast. She's doing well at this point in time and is having some further improvement with the current antibiotic therapy. She's been followed by the surgeon and we are awaiting pathology. Antimicrobial therapy may be streamlined to Rocephin at this time. Potentially will be utilizing oral antibiotic therapy. The patient is adamant that she does not want outpatient intravenous antibiotic therapy nor wants to [facility] to the [facility]. She cries and is very upset about the potential thought of going back to the [facility]. She relates that her 5 months was like being in snf and does not want to go back. She fortunately he is not having severe pain and the amount of drainage is improved. We'll work with the discharge planners as to potential outpatient antibiotic therapy and local wound care with home care nurse. Patient would do well to have improved nutrition, a multivitamin and will evaluate her iron stores and supplement as indicated. 10/06/2017 reveals the patient to be improved. But does complain that she is not feeling well overall. Her creatinine is increased and we'll give her a fluid bolus to recheck her creatinine the morning. Encouraged to drink her fluids. She had significant diarrhea that has now resolved. Again encouraging her to eat her meals to the best her ability. With antibiotic change from Zosyn to Rocephin but expect her to have less diarrhea. Likely will be discharged home on oral antibiotic therapy with ciprofloxacin when she is ready for discharge. October 08, 2017 the patient is had further improvement. With alteration of her antibiotic therapy her profuse diarrhea has resolved. She's having no, pain. Generally feeling considerably better. Denies fevers chills rigors or sweats. The breast is without pain. It was repacked today and was no pain at all with the repacking. Discharge planning is proceeding will need home care at home to pack her breast. She will be discharged on oral ciprofloxacin. 10/09/2017 reveals the largest single day improvement the patient has had so far. As noted appetites well without diarrhea. She is tolerating the oral antibiotic therapy without difficulties with no gastrointestinal symptoms. Today the breast wound was packed without significant pain and did not require narcotic pain medications for the change. The case is discussed with the nurse and the primary team. Likely May for discharge home tomorrow. We'll change her wound care to Aquacel silver rope which he be packed into the ulceration of the right breast every Thursday and Thursday. Orders are sent to home care for the dressing change. Current Visit: Yes Status: Acute Code(s): N61.1 - ABSCESS OF THE BREAST AND NIPPLE SNOMED Code(s): 50578926 (2) Atherosclerotic peripheral vascular disease Current Visit: Yes Status: Acute Code(s): I70.209 - UNSP ATHSCL [place] ARTERIES OF EXTREMITIES, UNSP EXTREMITY SNOMED Code(s): 233172124
[2017-10-10 00:09] VITALS: RESP 18
[2017-10-10 07:22] VITALS: BP 122/64; PULSE 71; TEMP 97.7
[2017-10-10] MEDS: HEPARIN SODIUM,PORCINE 5,000 UNIT/ML 1 ML VIAL SQ SCH (07:49)
[2017-10-10] MEDS: FERROUS SULFATE 325 MG TAB PO SCH (07:50)
[2017-10-10] MEDS: ESCITALOPRAM 5 MG TAB PO SCH (07:50)
[2017-10-10] MEDS: PANTOPRAZOLE 40 MG TABLET PO SCH (07:50)
[2017-10-10] MEDS: SODIUM BICARBONATE TAB 650 MG TAB PO SCH (07:50)
[2017-10-10 08:52] LABS: Anisocytosis Moderate; Basophils % (A) 1 %; Eosinophils # (A) 0.3 k/uL (0-0.7); Eosinophils % (A) 5 %; HCT 28.3 % (34.0-46.0); HGB 8.5 gm/dL (11.4-16.0); Hypochromasia Marked; Lymphocytes # (A) 1.1 k/uL (1.0-4.8); Lymphocytes % (A) 19 %; MCH 31.8 pg (25.0-35.0); MCHC 30.1 g/dL (31.0-37.0); MCV 105.8 fL (80.0-100.0); Macrocytosis Marked; Mean Platelet Volume 8.3; Monocytes # (A) 0.3 k/uL (0-1.0); Monocytes % (A) 5 %; Neutrophils # (A) 4.2 k/uL (1.3-7.7); Neutrophils % (A) 68 %; Platelet Count 246 k/uL (150-450); RBC 2.68 m/uL (3.80-5.40); RDW 21.9 % (11.5-15.5); WBC 6.1 k/uL (3.8-10.6)
[2017-10-10 09:08] LABS: Calcium 8.3 mg/dL (8.4-10.2); Potassium 3.7 mmol/L (3.5-5.1)
[2017-10-10 09:23] LABS: Polychromasia Present
--- NOTE | 2017-10-10 10:37 | P.DS ---
Providers Date of admission: 10/02/17 15:35 Attending physician: Dakota Ash MD Consults: 10/02/17 15:52 Consult Physician Stat Consulting Provider: Mimi Jung Consult Reason/Comments: Right Breast Abscess/Poss Inflam Cancer? Do you want consulting provider notified?: Yes 10/05/17 08:52 Consult Physician Routine Consulting Provider: Edison Burger Consult Reason/Comments: Breast abscess Do you want consulting provider notified?: Yes 10/07/17 12:54 Consult Physician Urgent Consulting Provider: Johnathan Carroll Consult Reason/Comments: renal failure Do you want consulting provider notified?: Yes 10/08/17 13:03 Consult Physician Routine Consulting Provider: Lizz Rodriguez Consult Reason/Comments: depressed emotions Do you want consulting provider notified?: Yes Primary care physician: Stated None - Discharge Diagnosis(es) (1) Abscess of right breast Status: Acute (2) Diarrhea Status: Acute (3) Acute renal failure Status: Acute (4) Hypokalemia Status: Acute (5) Hypomagnesemia Status: Acute (6) Anemia Status: Acute (7) DVT prophylaxis Status: Acute (8) Depressed mood Status: Acute Hospital Course: 62-year-old female presented due to swelling and pain of the right breast along with drainage denies any injuries or traumas however when she applied some pressure to her breast she noticed large amount of purulent discharge coming out of her breast which got alarmed and made her come to the ED. Patient was terrified about once can happen next as she had bad experience from prior hospitalization for aortobifemoral bypass which was complicated by wound infection resulted in prolonged hospital course and later got significant wound infection resulted in extensive scarring and patient later on requiring prolonged rehab where she spent 5 months at rehab facility. Patient ihad I&D of the right breast and daily packing performed by surgery team treated with broad spectrum antibiotics that was adjusted later to Levaquin due to positive cultures with Proteus according to the sensitivity results . Blood cultures are negative to date. Patient is being followed by general surgery and ID service. She expressed depressed emotions and psych consult was requested for further evaluation who diagnosed her with adjustment disorder and started her on SSRI. She also suffered from RAYSHAWN and electrolyte imbalance that was managed and followed by nephrology service. Her acute kidney injury thought to be due to drug induced with vancomycin when she was on broad spectrum antibiotics initially. Patient discharged on cipro and home care visiting nurse will assist with dressing change 3 times a week. patient on day of discharge was pain free, diarrhea resolved, renal function continued to improve, nephrology cleared patient for discharge and to follow with BMP in 4 days and to follow up with nephrology OP. Patient seen and examined on day of discharge, denies any further diarrhea nausea or vomiting. Denies any abdominal pain. Denies any breast pain at site of abscess. She felt better in she was eager to go home and continue her recovery. Constitutional: vital signs stable, Not in acute distress, pleasant, conversant Lungs: Clear to auscultation bilaterally, clear to percussion, normal respiratory effort no use of accessory muscles, right breast dressing dry , clean and intact. no tenderness to palpation around the incision site. Cardiovascular: Regular rate and rhythm, no murmurs, no gallops, no rubs, no peripheral edema Gastrointestinal: Soft, no tenderness to palpation, bowel sounds positive , extensive scarring over the abd from prior surgeries Extremities: No digital cyanosis or clubbing, peripheral pulses palpable and equal over bilateral radial arteries and dorsalis pedis artery, no calf muscle tenderness Psych: Alert, oriented to place, person and time, flat affect, intact judgment patient discharged in stable condition , follow up with PCP and nephrology HOme care for wound care prescriptions sent to our pharmacy at [facility] per patient request. Patient refused to go to halfway due to poor past experience and prolonged stay at halfway Prescription given to check BMP in 4 days 40 minutes were spent discharging this patient, and more than 50% of the time was spent in counseling the patient and family and in coordinating care. Procedures: I&D right breast abscess Patient Condition at Discharge: Stable Plan - Discharge Summary Discharge Rx Participant: Yes New Discharge Prescriptions: New Ciprofloxacin HCl 500 mg PO BID 7 Days #14 tab Escitalopram [Lexapro] 5 mg PO DAILY #30 tab Ferrous Sulfate [Iron (65 MG Elemental)] 325 mg PO BID-W/MEALS #60 tab Loperamide [Imodium] 2 mg PO QID PRN #6 cap PRN Reason: Diarrhea Sodium Bicarbonate Tab 650 mg PO BID #14 tab Continue Acetaminophen Tab [Tylenol] 650 mg PO Q6H PRN PRN Reason: Pain Discharge Medication List Acetaminophen Tab [Tylenol] 650 mg PO Q6H PRN 10/02/17 [History] Ciprofloxacin HCl 500 mg PO BID 7 Days #14 tab 10/10/17 [Rx] Escitalopram [Lexapro] 5 mg PO DAILY #30 tab 10/10/17 [Rx] Ferrous Sulfate [Iron (65 MG Elemental)] 325 mg PO BID-W/MEALS #60 tab 10/10/17 [Rx] Loperamide [Imodium] 2 mg PO QID PRN #6 cap 10/10/17 [Rx] Sodium Bicarbonate Tab 650 mg PO BID #14 tab 10/10/17 [Rx] Follow up Appointment(s)/Referral(s): Dahiana Vega MD [STAFF PHYSICIAN] - 1 Week Mimi Jung MD [STAFF PHYSICIAN] - 1 Week [facility], [NON-STAFF] - None,Stated [Primary Care Provider] - 1-2 days Ambulatory/Diagnostic Orders: Basic Metabolic Panel [LAB.AMB] Time Frame: 4 Days, Location: Determined By Patient Patient Instructions/Handouts: Acute Wound Care (DC) Activity/Diet/Wound Care/Special Instructions: [facility] can be contacted at [phone]. [facility] Discharge Disposition: HOME WITH HOME HEALTH SERVICES
--- NOTE | 2017-10-12 10:19 | P.PN ---
Progress Note - Text Progress Note Date: 10/12/17 This is a cancer to the question on the operative debridement of the right kidney. Please note that this was an excisional debridement done in the operating room cutting away the necrotic tissue.
== END 2017-10-10 11:20 | disposition home health service (06) | DRG 584 ==
LOC: EC 11:57 → 4MS4W 15:35
PROVIDERS: ADMIT Family Medicine; ATTEND Family Medicine
PROC: 0HBT0ZZ Excision of Right Breast, Open Approach (ICD-10-PCS; principal; 2017-10-03 09:48)
DX: N61.1 Abscess of the breast and nipple (principal); E87.2 Acidosis; N17.9 Acute kidney failure, unspecified; E83.42 Hypomagnesemia; B96.4 Proteus (mirabilis) (morganii) as the cause of diseases classified elsewhere; D50.9 Iron deficiency anemia, unspecified; E87.6 Hypokalemia; F32.9 Major depressive disorder, single episode, unspecified; F43.22 Adjustment disorder with anxiety; I10 Essential (primary) hypertension; I25.10 Atherosclerotic heart disease of native coronary artery without angina pectoris; I70.209 Unspecified atherosclerosis of native arteries of extremities, unspecified extremity; T36.8X5A Adverse effect of other systemic antibiotics, initial encounter; T39.395A Adverse effect of other nonsteroidal anti-inflammatory drugs [NSAID], initial encounter; Z80.1 Family history of malignant neoplasm of trachea, bronchus and lung; Z80.8 Family history of malignant neoplasm of other organs or systems; Z81.8 Family history of other mental and behavioral disorders; Z82.3 Family history of stroke; Z87.891 Personal history of nicotine dependence; Z90.710 Acquired absence of both cervix and uterus; Z95.1 Presence of aortocoronary bypass graft
CPT/HCPCS: 36415; 71046; 80048; 80053; 80202; 82565; 83540; 83550; 83605; 83735; 84132; 85025; 85045; 85610; 85730; 87040; 87070; 87075; 87077; 87186; 87205; 87324; 88304; 96365; 96366; 96375; 99285

== ENCOUNTER 2018-02-15 11:41 | Inpatient (IN) | payer OTHER ==
[2018-02-15] MEDS ORDERED: SODIUM CHLORIDE 0.9% 1,000 ML IV STA (11:50)
--- NOTE | 2018-02-15 12:18 | ED ---
General Adult HPI - General Chief complaint: Weakness Stated complaint: SOB/palpitations/shaky Time Seen by Provider: 02/15/18 11:50 Source: patient, RN notes reviewed, old records reviewed Mode of arrival: EMS Limitations: no limitations - History of Present Illness Initial comments: This is a 62-year-old female the ER for evaluation of weakness. Patient does have, can recent medical history, patient includes severe weakness, alcoholism. Patient with a decreased appetite, but she has not drank in 3-4 days. No headache chest pain shortness breath or abdominal pain. Patient denies nausea vomiting or diarrhea. No blood in her vomit no blood in her stool patient does admit to remote history of heavy vaginal bleeding although she is on menses - Related Data Home Medications Medication Instructions Recorded Confirmed No Known Home Medications 02/15/18 02/15/18 Allergies Allergy/AdvReac Type Severity Reaction Status Date / Time No Known Allergies Allergy Verified 02/15/18 12:20 Review of Systems ROS Statement: Those systems with pertinent positive or pertinent negative responses have been documented in the HPI. ROS Other: All systems not noted in ROS Statement are negative. 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 pt states she had aortic bypass, states she does not know why History of Any Multi-Drug Resistant Organisms: None Reported Past Surgical History: Appendectomy, Bowel Resection, Coronary Bypass/CABG, Hysterectomy, Tubal Ligation Additional Past Surgical History / Comment(s): "Stent bilat GROIN", BARTHOLIN CYST REMOVED, TOTAL HX AND 4" OF SMALL INTESTINE REMOVED D/T ENDOMETREOSIS" aorto bifemoral bypass January 2017. pt also had partial right mastectomy. Past Anesthesia/Blood Transfusion Reactions: No Reported Reaction Past Psychological History: Depression Smoking Status: Former smoker Past Alcohol Use History: None Reported, Daily Past Drug Use History: None Reported - Past Family History Father Family Medical History: Cancer Additional Family Medical History / Comment(s): LUNG CANCER(SMOKED), BRAIN TUMOR REMOVED-HAD RADIATION [place] THEN HAD STROKE. Mother Family Medical History: Cancer Additional Family Medical History / Comment(s): COLON AND SKIN CANCER. ALSO HAD TB Brother(s) Additional Family Medical History / Comment(s): 1 BROTHER HAS MS, ANOTHER BROTHER FROM COMPLICATIONS FROM ETOH/SCHIZOPHRENIA General Exam Limitations: no limitations General appearance: alert, in no apparent distress Head exam: Present: atraumatic, normocephalic, normal inspection Eye exam: Present: normal appearance, PERRL, EOMI. Absent: scleral icterus, conjunctival injection, periorbital swelling ENT exam: Present: normal exam, mucous membranes moist Neck exam: Present: normal inspection. Absent: tenderness, meningismus, lymphadenopathy Respiratory exam: Present: normal lung sounds bilaterally. Absent: respiratory distress, wheezes, rales, rhonchi, stridor Cardiovascular Exam: Present: regular rate, normal rhythm, normal heart sounds. Absent: systolic murmur, diastolic murmur, rubs, gallop, clicks GI/Abdominal exam: Present: soft, normal bowel sounds. Absent: distended, tenderness, guarding, rebound, rigid Extremities exam: Present: normal inspection, full ROM, normal capillary refill. Absent: tenderness, pedal edema, joint swelling, calf tenderness Back exam: Present: normal inspection Neurological exam: Present: alert, oriented X3, CN II-XII intact Psychiatric exam: Present: normal affect, normal mood Skin exam: Present: warm, dry, intact, normal color. Absent: rash Course Vital Signs 02/15/18 02/15/18 11:51 13:38 Temperature 96.9 F L Pulse Rate 106 H 85 Respiratory 18 18 Rate Blood Pressure 105/46 105/46 O2 Sat by Pulse 98 99 Oximetry - Reevaluation(s) Reevaluation #1: 02/15/18 14:38 Patient informed of results, so remains fairly weak EKG Findings - EKG Comments: EKG Findings:: EKG shows sinus rhythm tachycardia rate of 110, OR 140, QRS 70, QTc 452 Medical Decision Making - Medical Decision Making 62 female the ER for evaluation of weakness significant anemia we'll admit for transfusion and continued evaluation of cardiopulmonary status hemodynamic state - Lab Data Result diagrams: 02/15/18 12:50 02/15/18 12:50 Lab Results 02/15/18 02/15/18 02/15/18 Range/Units 12:50 12:50 12:50 WBC 2.5 L (3.8-10.6) k/uL RBC 1.19 L (3.80-5.40) m/uL Hgb 4.7 L* (11.4-16.0) gm/dL Hct 14.6 L* (34.0-46.0) % MCV 123.4 H (80.0-100.0) fL MCH 39.8 H (25.0-35.0) pg MCHC 32.3 (31.0-37.0) g/dL RDW 18.5 H (11.5-15.5) % Plt Count 113 L (150-450) k/uL Neutrophils % 65 % Lymphocytes % 27 % Monocytes % 3 % Eosinophils % 1 % Basophils % 1 % Neutrophils # 1.7 (1.3-7.7) k/uL Lymphocytes # 0.7 L (1.0-4.8) k/uL Monocytes # 0.1 (0-1.0) k/uL Eosinophils # 0.0 (0-0.7) k/uL Basophils # 0.0 (0-0.2) k/uL Manual Slide Review Performed Anisocytosis Slight Macrocytosis Marked PT 12.5 H (9.0-12.0) sec INR 1.3 H (<1.2) APTT 21.4 L (22.0-30.0) sec Sodium 136 L (137-145) mmol/L Potassium 3.5 (3.5-5.1) mmol/L Chloride 105 (98-107) mmol/L Carbon Dioxide 18 L (22-30) mmol/L Anion Gap 13 mmol/L BUN 15 (7-17) mg/dL Creatinine 0.93 (0.52-1.04) mg/dL Est GFR (CKD-EPI)AfAm 77 (>60 ml/min/1.73 sqM) Est GFR (CKD-EPI)NonAf 67 (>60 ml/min/1.73 sqM) Glucose 101 H (74-99) mg/dL Calcium 8.7 (8.4-10.2) mg/dL Magnesium 1.4 L (1.6-2.3) mg/dL Total Bilirubin 2.3 H (0.2-1.3) mg/dL AST 39 H (14-36) U/L ALT 23 (9-52) U/L Alkaline Phosphatase 78 (38-126) U/L Ammonia (<30) umol/L Total Creatine Kinase (30-135) U/L CK-MB (CK-2) (0.0-2.4) ng/mL CK-MB (CK-2) Rel Index Troponin I (0.000-0.034) ng/mL Total Protein 6.4 (6.3-8.2) g/dL Albumin 3.6 (3.5-5.0) g/dL TSH 3.530 (0.465-4.680) mIU/L Urine Color Urine Appearance (Clear) Urine pH (5.0-8.0) Ur Specific [place] (1.001-1.035) Urine Protein (Negative) Urine Glucose (UA) (Negative) Urine Ketones (Negative) Urine Blood (Negative) Urine Nitrite (Negative) Urine Bilirubin (Negative) Urine Urobilinogen (<2.0) mg/dL Ur Leukocyte Esterase (Negative) Urine RBC (0-5) /hpf Urine WBC (0-5) /hpf Ur Squamous Epith Cells (0-4) /hpf Urine Bacteria (None) /hpf Hyaline Casts (0-2) /lpf Urine Mucus (None) /hpf Serum Alcohol <10 mg/dL 02/15/18 02/15/18 02/15/18 Range/Units 12:50 12:50 13:57 WBC (3.8-10.6) k/uL RBC (3.80-5.40) m/uL Hgb (11.4-16.0) gm/dL Hct (34.0-46.0) % MCV (80.0-100.0) fL MCH (25.0-35.0) pg MCHC (31.0-37.0) g/dL RDW (11.5-15.5) % Plt Count (150-450) k/uL Neutrophils % % Lymphocytes % % Monocytes % % Eosinophils % % Basophils % % Neutrophils # (1.3-7.7) k/uL Lymphocytes # (1.0-4.8) k/uL Monocytes # (0-1.0) k/uL Eosinophils # (0-0.7) k/uL Basophils # (0-0.2) k/uL Manual Slide Review Anisocytosis Macrocytosis PT (9.0-12.0) sec INR (<1.2) APTT (22.0-30.0) sec Sodium (137-145) mmol/L Potassium (3.5-5.1) mmol/L Chloride (98-107) mmol/L Carbon Dioxide (22-30) mmol/L Anion Gap mmol/L BUN (7-17) mg/dL Creatinine (0.52-1.04) mg/dL Est GFR (CKD-EPI)AfAm (>60 ml/min/1.73 sqM) Est GFR (CKD-EPI)NonAf (>60 ml/min/1.73 sqM) Glucose (74-99) mg/dL Calcium (8.4-10.2) mg/dL Magnesium (1.6-2.3) mg/dL Total Bilirubin (0.2-1.3) mg/dL AST (14-36) U/L ALT (9-52) U/L Alkaline Phosphatase (38-126) U/L Ammonia <9 (<30) umol/L Total Creatine Kinase <20 L (30-135) U/L CK-MB (CK-2) <0.2 (0.0-2.4) ng/mL CK-MB (CK-2) Rel Index Troponin I 0.030 (0.000-0.034) ng/mL Total Protein (6.3-8.2) g/dL Albumin (3.5-5.0) g/dL TSH (0.465-4.680) mIU/L Urine Color Yellow Urine Appearance Cloudy H (Clear) Urine pH 6.5 (5.0-8.0) Ur Specific [place] 1.011 (1.001-1.035) Urine Protein Trace H (Negative) Urine Glucose (UA) Negative (Negative) Urine Ketones Negative (Negative) Urine Blood Negative (Negative) Urine Nitrite Negative (Negative) Urine Bilirubin Negative (Negative) Urine Urobilinogen 4.0 (<2.0) mg/dL Ur Leukocyte Esterase Large H (Negative) Urine RBC 1 (0-5) /hpf Urine WBC 149 H (0-5) /hpf Ur Squamous Epith Cells <1 (0-4) /hpf Urine Bacteria Many H (None) /hpf Hyaline Casts 1 (0-2) /lpf Urine Mucus Rare H (None) /hpf Serum Alcohol mg/dL Disposition Clinical Impression: Acute renal failure, Hypomagnesemia, Anemia Disposition: ADMITTED IP TO THIS [facility] Condition: Serious Is patient prescribed a controlled substance at d/c from ED?: No Referrals: None,Stated [Primary Care Provider] - 1-2 days
[2018-02-15 13:16] LABS: Creatine Kinase <20 U/L (30-135)
[2018-02-15 13:18] LABS: INR 1.3 (<1.2); Prothrombin Time 12.5 sec (9.0-12.0)
[2018-02-15 13:24] LABS: Partial Thromboplastin Time 21.4 sec (22.0-30.0)
[2018-02-15 13:25] LABS: ALT 23 U/L (9-52); AST 39 U/L (14-36); Albumin 3.6 g/dL (3.5-5.0); Alcohol <10 mg/dL; Alkaline Phosphatase 78 U/L (38-126); Anion Gap 13 mmol/L; Anisocytosis Slight; Basophils % (A) 1 %; Blood Urea Nitrogen 15 mg/dL (7-17); Calcium 8.7 mg/dL (8.4-10.2); Carbon Dioxide 18 mmol/L (22-30); Chloride 105 mmol/L (98-107); Eosinophils % (A) 1 %; Glucose 101 mg/dL (74-99); Lymphocytes # (A) 0.7 k/uL (1.0-4.8); Lymphocytes % (A) 27 %; MCH 39.8 pg (25.0-35.0); MCHC 32.3 g/dL (31.0-37.0); MCV 123.4 fL (80.0-100.0); Macrocytosis Marked; Magnesium 1.4 mg/dL (1.6-2.3); Mean Platelet Volume 8.2; Monocytes # (A) 0.1 k/uL (0-1.0); Monocytes % (A) 3 %; Neutrophils # (A) 1.7 k/uL (1.3-7.7); Neutrophils % (A) 65 %; Platelet Count 113 k/uL (150-450); Potassium 3.5 mmol/L (3.5-5.1); RBC 1.19 m/uL (3.80-5.40); RDW 18.5 % (11.5-15.5); Sodium 136 mmol/L (137-145); Total Bilirubin 2.3 mg/dL (0.2-1.3); Total Protein 6.4 g/dL (6.3-8.2); WBC 2.5 k/uL (3.8-10.6)
[2018-02-15 13:31] LABS: HCT 14.6 % (34.0-46.0); HGB 4.7 gm/dL (11.4-16.0)
[2018-02-15 13:33] LABS: Creatine Kinase MB <0.2 ng/mL (0.0-2.4)
[2018-02-15] MEDS ORDERED: LORazepam 2 MG/ML INJ IV PRN ×3 (14:36)
[2018-02-15] MEDS ORDERED: THIAMINE 100 MG/ML 2 ML VIAL IM STA (14:36)
[2018-02-15 14:37] LABS: Appearance,Urine Cloudy (Clear); Bacteria,Urine Many /hpf; Bilirubin,Urine Negative (Negative); Blood,Urine Negative (Negative); Color,Urine Yellow; Glucose,Urine (UA) Negative (Negative); Hyaline Casts,Urine 1 /lpf (0-2); Ketones,Urine Negative (Negative); Leukocyte Esterase,Urine Large (Negative); Mucus,Urine Rare /hpf; Nitrite,Urine Negative (Negative); PH, Urine 6.5 (5.0-8.0); Protein,Urine Trace (Negative); RBC,Urine 1 /hpf (0-5); Specific Gravity,Urine 1.011 (1.001-1.035); Squamous Epithelial Cell,Urine <1 /hpf (0-4); WBC,Urine 149 /hpf (0-5)
[2018-02-15] MEDS ORDERED: cefTRIAXone IN SWFI 1,000 MG/10 ML SYRINGE IVP STA (14:37)
[2018-02-15] MEDS ORDERED: PANTOPRAZOLE 40 MG/10 ML VIAL IVP STA (14:37)
[2018-02-15] MEDS: THIAMINE 100 MG TAB PO SCH (17:15)
[2018-02-15] MEDS ORDERED: HYDROcodone/APAP 5-325MG 1 EACH TAB PO PRN (19:50)
[2018-02-15] MEDS ORDERED: TEMAZEPAM 15 MG CAP PO PRN (19:50)
[2018-02-15] MEDS ORDERED: SODIUM CHLORIDE 0.9% 1,000 ML with MVI, ADULT NO.4 WITH VIT K 10 ML, THIAMINE 100 MG, F... IV ONE ×4 (20:00)
--- NOTE | 2018-02-15 20:24 | XR ---
EXAMINATION TYPE: XR chest 1V portable DATE OF EXAM: 02/15/2018 COMPARISON: 10/02/2017 HISTORY: Dizziness TECHNIQUE: Single frontal view of the chest is obtained. FINDINGS: There is no heart failure nor confluent pneumonic infiltrate. Costophrenic angles are bethany r. There are chest leads. IMPRESSION: No active cardiopulmonary disease. No change.
--- NOTE | 2018-02-15 20:25 | HP ---
HISTORY AND PHYSICAL CHIEF COMPLAINT: Weakness. HISTORY OF PRESENT ILLNESS: This 62-year-old woman with a past medical history of multiple medical problems, including history of peripheral vascular disease aortobifemoral bypass, history of depression, history of ETOH, being followed previously by Dr. Vu in the outpatient setting, was complaining of generalized weakness. The patient came to the ER. The patient also noticed some black stools. Her hemoglobin was found to be 4.7. The patient was admitted for further evaluation and treatment. There is no history of fever, rigor or chills. No history of headache, loss of consciousness, seizures. Last alcohol intake was on February 03, according to her. PAST MEDICAL HISTORY: 1. History of vascular disorder. 2. History of aortobifemoral bypass. 3. History of appendectomy. 4. History of depression. HOME MEDICATIONS: None. ALLERGIES: NONE. FAMILY HISTORY: History of lung cancer and brain tumor in the family. SOCIAL HISTORY: History of alcohol intake and previous history of smoking. REVIEW OF SYSTEMS: ENT: Diminished hearing. Diminished vision. CARDIOVASCULAR SYSTEM: No angina, palpitations. RESPIRATORY SYSTEM: No cough, hemoptysis. GI: No nausea, vomiting. : No dysuria or retention. NERVOUS SYSTEM: No numbness, weakness. ALLERGY/IMMUNOLOGY: No asthma, hayfever. MUSCULOSKELETAL: As mentioned earlier. HEMATOLOGY/ONCOLOGY: As mentioned earlier. ENDOCRINE: No history of diabetes, hypothyroidism. CONSTITUTIONAL: As mentioned earlier. DERMATOLOGY: Negative. RHEUMATOLOGY: Negative. PSYCHIATRY: As mentioned earlier. PHYSICAL EXAMINATION: Patient alert and oriented x3. Pulse is 92, blood pressure 92/47, respiration 18 , temperature 98.9, pulse ox 97% on room air. HEENT: Conjunctivae pale. Oral mucosa moist. NECK: No jugular venous distention. No carotid bruit. No lymph node enlargement. CARDIOVASCULAR SYSTEM: S1, S2 muffled. No S3. No S4. RESPIRATORY SYSTEM: Breath sounds diminished at the bases. A few scattered rhonchi. No crackles. ABDOMEN: Soft, non-tender. No mass palpable. LEGS: No edema. No swelling. NERVOUS SYSTEM: Higher functions as mentioned earlier. Moves all 4 limbs. No focal motor or sensory deficit. LYMPHATIC: No lymph node palpable in neck or axillae. SKIN: No ulcer, rash, bleeding. LABS: WBC 2.5, hemoglobin 4.7. INR is 1.3. Sodium 136. Total bilirubin is 2.3. AST is 39. TSH is 3.53. UA shows UTI. Otherwise, the EKG shows sinus tachycardia with some ST-T changes. ASSESSMENT: 1. Severe anemia. Rule out gastrointestinal bleed. 2. History of ethanol. 3. Rule out peptic ulcer disease. 4. Hyponatremia. 5. Possible alcoholic hepatitis. 6. Hypomagnesemia. 7. Mild pancytopenia, possibly secondary to ethanol. 8. Severe peripheral vascular disease, status post aortobifemoral bypass. 9. History of endometriosis. 10.History of bowel resection. 11.History of appendectomy. 12.History of depression. 13.Remote history of nicotine dependence. RECOMMENDATIONS AND DISCUSSION: In this 62-year-old woman who presented with multiple complex medical issues, I recommend continuing the current medications. Continue symptomatic treatment. I recommend at least 3 units of transfusion and repeat labs. Gastroenterology consultation. Proton pump inhibitors. CIWA protocol. The patient is apparently noncompliant with medications. The importance of compliance was also stressed. Alcohol cessation recommendation was given. Social work consult for evaluation of the home situation. Prognosis guarded because of multiple complex medical issues. Further recommendations to follow. A copy of this dictation is being forwarded to Dr. Vu. MMDIVINEL / OLUN: [id number] / THERESA
[2018-02-15 20:49] LABS: Anisocytosis Marked; MCH 36.4 pg (25.0-35.0); MCV 103.9 fL (80.0-100.0); Macrocytosis Marked; Mean Platelet Volume 9.6; RBC 1.44 m/uL (3.80-5.40); WBC 3.1 k/uL (3.8-10.6)
[2018-02-15] MEDS: PANTOPRAZOLE 40 MG/10 ML VIAL IVP SCH (21:07)
[2018-02-15 21:44] LABS: HCT 14.9 % (34.0-46.0); HGB 5.2 gm/dL (11.4-16.0)
[2018-02-15 21:45] LABS: RDW 25.6 % (11.5-15.5)
[2018-02-15 21:46] LABS: Platelet Count 82 k/uL (150-450)
[2018-02-16 02:43] LABS: Anisocytosis Marked; Basophils % (A) 1 %; Eosinophils # (A) 0.1 k/uL (0-0.7); Eosinophils % (A) 3 %; Lymphocytes % (A) 32 %; MCH 34.8 pg (25.0-35.0); MCHC 32.9 g/dL (31.0-37.0); MCV 105.9 fL (80.0-100.0); Macrocytosis Marked; Mean Platelet Volume 8.3; Monocytes # (A) 0.1 k/uL (0-1.0); Monocytes % (A) 3 %; Neutrophils # (A) 1.9 k/uL (1.3-7.7); Neutrophils % (A) 61 %; RBC 1.76 m/uL (3.80-5.40); WBC 3.1 k/uL (3.8-10.6)
[2018-02-16 03:11] LABS: HCT 18.7 % (34.0-46.0); HGB 6.1 gm/dL (11.4-16.0); Platelet Count 80 k/uL (150-450)
[2018-02-16 03:12] LABS: RDW 25.4 % (11.5-15.5)
[2018-02-16 06:34] LABS: Anisocytosis Marked; Basophils % (A) 0 %; Eosinophils # (A) 0.1 k/uL (0-0.7); Eosinophils % (A) 3 %; Lymphocytes # (A) 0.8 k/uL (1.0-4.8); Lymphocytes % (A) 26 %; MCH 34.4 pg (25.0-35.0); MCHC 33.2 g/dL (31.0-37.0); MCV 103.6 fL (80.0-100.0); Macrocytosis Marked; Mean Platelet Volume 8.1; Monocytes # (A) 0.1 k/uL (0-1.0); Monocytes % (A) 4 %; Neutrophils # (A) 1.8 k/uL (1.3-7.7); Neutrophils % (A) 64 %; RBC 1.82 m/uL (3.80-5.40); RDW 24.6 % (11.5-15.5); WBC 2.9 k/uL (3.8-10.6)
[2018-02-16 06:43] LABS: HGB 6.3 gm/dL (11.4-16.0)
[2018-02-16 06:44] LABS: HCT 18.9 % (34.0-46.0); Platelet Count 71 k/uL (150-450)
[2018-02-16 07:06] LABS: ALT 24 U/L (9-52); AST 32 U/L (14-36); Albumin 2.6 g/dL (3.5-5.0); Alkaline Phosphatase 57 U/L (38-126); Anion Gap 6 mmol/L; Blood Urea Nitrogen 12 mg/dL (7-17); Calcium 7.7 mg/dL (8.4-10.2); Carbon Dioxide 20 mmol/L (22-30); Chloride 110 mmol/L (98-107); Glucose 92 mg/dL (74-99); Sodium 136 mmol/L (137-145); Total Bilirubin 1.9 mg/dL (0.2-1.3); Total Protein 5.1 g/dL (6.3-8.2)
[2018-02-16] MEDS: PANTOPRAZOLE 40 MG/10 ML VIAL IVP SCH ×2 (09:00→23:02)
[2018-02-16] MEDS: cefTRIAXone IN SWFI 1,000 MG/10 ML SYRINGE IVP SCH (09:00)
[2018-02-16] MEDS: THIAMINE 100 MG TAB PO SCH ×2 (09:00→16:57)
[2018-02-16] MEDS ORDERED: Potassium Replacement Protocol 1 EACH MISC MISCELLANE PRN (12:19)
[2018-02-16] MEDS ORDERED: BISACODYL 5 MG TABLET.DR PO STA (12:29)
--- NOTE | 2018-02-16 12:33 | P.CONS ---
History of Present Illness - Reason for Consult Consult date: 02/16/18 Anemia GI bleed Requesting physician: Henry Finn - History of Present Illness 62-year-old female history of long-standing alcohol abuse drinks peppermint schnapps on a daily basis admitted with severe weakness since February 03. Her last alcohol drink was February 03. Denies overt bleeding such as hematemesis hematochezia melena. Admission hemoglobin 4.7. MCV 123. Platelet 113. White count 2.5. INR 1.3. Previous hemoglobin in October was 8.5. Current hemoglobin is 6.3. She has received 2 units of blood. Denies abdominal pain. Last colonoscopy more than 5 years ago. No recent EGD. No history of peptic ulcer disease. Review of Systems Constitutional: Denies fever, chills, sweats, weight gain, or loss. Admitted with weakness. HEENT: Negative for migraines, blurred vision or loss, earaches, drainage, tinnitus, oral mucosal lesions, dysphagia, or odynophagia. CARDIAC: Negative for chest pain, arrhythmias, or palpitation. RESPIRATORY: Negative for shortness of breath, hemoptysis, cough, or sputum production. GI: See HPI for pertinent findings. : Negative for hematuria, urgency, frequency, polyuria, or dysuria. GYNc: Negative vaginal discharge. MUSCULOSKELETAL: Negative for muscle aches, swelling, arthritis, and arthralgias. NEUROLOGIC: Negative for stroke or TIA. ENDOCRINE: Negative for thyroid problems. SKIN: Negative for rash or itching. PSYCHIATRIC: Negative history for depression and anxiety Past Medical History Past Medical History: Vascular Disorder Additional Past Medical History / Comment(s): ENDOMETREOSIS, "BORN WITH 10% RETINA LT EYE"able to see some shadows/light, past shingles >3 years ago, rt breast abcess History of Any Multi-Drug Resistant Organisms: None Reported Past Surgical History: Appendectomy, Bowel Resection, Hysterectomy, Tubal Ligation Additional Past Surgical History / Comment(s): "Stent bilat GROIN", BARTHOLIN CYST REMOVED, TOTAL HX AND 4" OF SMALL INTESTINE REMOVED D/T ENDOMETREOSIS" aorto bifemoral bypass January 2017 preeti rios..i&d rt breast acbess pt also had partial right mastectomy. Past Anesthesia/Blood Transfusion Reactions: No Reported Reaction Smoking Status: Former smoker - Past Family History Father Family Medical History: Cancer Additional Family Medical History / Comment(s): LUNG CANCER(SMOKED), BRAIN TUMOR REMOVED-HAD RADIATION [place] THEN HAD STROKE. Mother Family Medical History: Cancer, Dementia Additional Family Medical History / Comment(s): COLON AND SKIN CANCER. ALSO HAD TB Brother(s) Additional Family Medical History / Comment(s): 1 BROTHER HAS MS, ANOTHER BROTHER FROM COMPLICATIONS FROM ETOH/SCHIZOPHRENIA Medications and Allergies Home Medications Medication Instructions Recorded Confirmed Type No Known Home Medications 02/15/18 02/15/18 History Allergies Allergy/AdvReac Type Severity Reaction Status Date / Time No Known Allergies Allergy Verified 02/15/18 12:20 Physical Exam Vitals: Vital Signs Temp Pulse Pulse Resp BP BP Pulse Ox 02/16/18 11:59 96.8 F L 68 16 103/59 100 02/16/18 11:48 96.8 F L 68 16 103/59 100 02/16/18 11:43 97.6 F 68 16 103/59 100 02/16/18 11:18 97.0 F L 73 16 107/57 02/16/18 11:08 98.6 F 68 16 96/53 99 02/16/18 09:02 97.8 F 69 16 88/51 99 02/16/18 04:00 97.7 F 79 16 118/56 99 02/16/18 00:00 97.6 F 75 17 111/56 100 02/15/18 23:37 97.6 F 75 17 111/56 100 02/15/18 22:30 98.2 F 74 16 95/56 100 02/15/18 21:28 98.9 F 76 18 98/48 99 02/15/18 20:58 98.5 F 78 18 96/48 100 02/15/18 20:48 98.6 F 77 18 96/47 100 02/15/18 20:27 99.5 F 74 18 99/54 100 02/15/18 20:18 98.5 F 82 18 112/56 100 02/15/18 18:57 98.9 F 92 18 92/47 97 02/15/18 18:27 96.9 F L 112 H 18 105/45 100 02/15/18 18:17 97.1 F L 98 18 103/44 97 02/15/18 16:06 80 18 97/53 93 L 07/16/18 13:38 85 18 105/46 99 Intake and Output 02/15/18 02/16/18 02/16/18 22:59 06:59 14:59 Intake Total 310 510 240 Output Total 800 Balance 310 510 -560 Intake: IV 200 Sodium Chloride 0.9% 1, 200 000 ml @ 100 mls/hr IV . Q10H7M ONE with Mvi, Adult No.4 with Vit K 10 ml with Thiamine 100 mg with Folic Acid 1 mg Rx#: [id number] Oral 240 Blood Product 310 310 0 Rc As-3 Unit 0 310 [id number] Rc As-3 Unit 0 [id number] Rc Pheresis As-3 Unit 310 [id number] Output: Urine 800 Other: Voiding Method Toilet Toilet Bedside Commode Bedside Commode # Voids 2 1 Weight 66.8 kg General appearance: The patient is alert, oriented, in no acute distress. HET: Head is normocephalic and atraumatic. Pupils are equal and reactive. Oropharynx is clear without lesions. Neck: Supple without lymphadenopathy. Trachea midline. Heart: S1 S2. Regular rate and rhythm. Lungs: No crackles or wheezes are heard. Abdomen: Soft, nontender, nondistended with bowel sounds. No peritoneal signs. No palpable organomegaly or masses. Extremities: Normal skin color and turgor. No cyanosis, rash, ulceration, clubbing, or edema. Radial and pedal pulses are 2/4 bilaterally. Neurological: No focal deficits. Strength and sensation are grossly intact. Results CBC & Chem 7: 02/16/18 06:12 02/16/18 06:12 Labs: Abnormal Lab Results - Last 24 Hours (Table) 02/15/18 02/15/18 02/15/18 Range/Units 12:50 12:50 12:50 WBC 2.5 L (3.8-10.6) k/uL RBC 1.19 L (3.80-5.40) m/uL Hgb 4.7 L* (11.4-16.0) gm/dL Hct 14.6 L* (34.0-46.0) % MCV 123.4 H (80.0-100.0) fL MCH 39.8 H (25.0-35.0) pg RDW 18.5 H (11.5-15.5) % Plt Count 113 L (150-450) k/uL Lymphocytes # 0.7 L (1.0-4.8) k/uL PT 12.5 H (9.0-12.0) sec INR 1.3 H (<1.2) APTT 21.4 L (22.0-30.0) sec Sodium 136 L (137-145) mmol/L Potassium (3.5-5.1) mmol/L Chloride (98-107) mmol/L Carbon Dioxide 18 L (22-30) mmol/L Glucose 101 H (74-99) mg/dL Calcium (8.4-10.2) mg/dL Magnesium 1.4 L (1.6-2.3) mg/dL Total Bilirubin 2.3 H (0.2-1.3) mg/dL AST 39 H (14-36) U/L Total Creatine Kinase (30-135) U/L Total Protein (6.3-8.2) g/dL Albumin (3.5-5.0) g/dL Urine Appearance (Clear) Urine Protein (Negative) Ur Leukocyte Esterase (Negative) Urine WBC (0-5) /hpf Urine Bacteria (None) /hpf Urine Mucus (None) /hpf Crossmatch 02/15/18 02/15/18 02/15/18 Range/Units 12:50 13:57 15:55 WBC (3.8-10.6) k/uL RBC (3.80-5.40) m/uL Hgb (11.4-16.0) gm/dL Hct (34.0-46.0) % MCV (80.0-100.0) fL MCH (25.0-35.0) pg RDW (11.5-15.5) % Plt Count (150-450) k/uL Lymphocytes # (1.0-4.8) k/uL PT (9.0-12.0) sec INR (<1.2) APTT (22.0-30.0) sec Sodium (137-145) mmol/L Potassium (3.5-5.1) mmol/L Chloride (98-107) mmol/L Carbon Dioxide (22-30) mmol/L Glucose (74-99) mg/dL Calcium (8.4-10.2) mg/dL Magnesium (1.6-2.3) mg/dL Total Bilirubin (0.2-1.3) mg/dL AST (14-36) U/L Total Creatine Kinase <20 L (30-135) U/L Total Protein (6.3-8.2) g/dL Albumin (3.5-5.0) g/dL Urine Appearance Cloudy H (Clear) Urine Protein Trace H (Negative) Ur Leukocyte Esterase Large H (Negative) Urine WBC 149 H (0-5) /hpf Urine Bacteria Many H (None) /hpf Urine Mucus Rare H (None) /hpf Crossmatch See Detail 02/15/18 02/16/18 02/16/18 Range/Units 20:32 01:49 06:12 WBC 3.1 L 3.1 L 2.9 L (3.8-10.6) k/uL RBC 1.44 L 1.76 L 1.82 L (3.80-5.40) m/uL Hgb 5.2 L* 6.1 L* 6.3 L* (11.4-16.0) gm/dL Hct 14.9 L* 18.7 L* 18.9 L* (34.0-46.0) % MCV 103.9 H D 105.9 H 103.6 H (80.0-100.0) fL MCH 36.4 H (25.0-35.0) pg RDW 25.6 H 25.4 H 24.6 H (11.5-15.5) % Plt Count 82 L 80 L 71 L (150-450) k/uL Lymphocytes # 0.8 L (1.0-4.8) k/uL PT (9.0-12.0) sec INR (<1.2) APTT (22.0-30.0) sec Sodium (137-145) mmol/L Potassium (3.5-5.1) mmol/L Chloride (98-107) mmol/L Carbon Dioxide (22-30) mmol/L Glucose (74-99) mg/dL Calcium (8.4-10.2) mg/dL Magnesium (1.6-2.3) mg/dL Total Bilirubin (0.2-1.3) mg/dL AST (14-36) U/L Total Creatine Kinase (30-135) U/L Total Protein (6.3-8.2) g/dL Albumin (3.5-5.0) g/dL Urine Appearance (Clear) Urine Protein (Negative) Ur Leukocyte Esterase (Negative) Urine WBC (0-5) /hpf Urine Bacteria (None) /hpf Urine Mucus (None) /hpf Crossmatch 02/16/18 Range/Units 06:12 WBC (3.8-10.6) k/uL RBC (3.80-5.40) m/uL Hgb (11.4-16.0) gm/dL Hct (34.0-46.0) % MCV (80.0-100.0) fL MCH (25.0-35.0) pg RDW (11.5-15.5) % Plt Count (150-450) k/uL Lymphocytes # (1.0-4.8) k/uL PT (9.0-12.0) sec INR (<1.2) APTT (22.0-30.0) sec Sodium 136 L (137-145) mmol/L Potassium 3.0 L* (3.5-5.1) mmol/L Chloride 110 H (98-107) mmol/L Carbon Dioxide 20 L (22-30) mmol/L Glucose (74-99) mg/dL Calcium 7.7 L (8.4-10.2) mg/dL Magnesium (1.6-2.3) mg/dL Total Bilirubin 1.9 H (0.2-1.3) mg/dL AST (14-36) U/L Total Creatine Kinase (30-135) U/L Total Protein 5.1 L (6.3-8.2) g/dL Albumin 2.6 L (3.5-5.0) g/dL Urine Appearance (Clear) Urine Protein (Negative) Ur Leukocyte Esterase (Negative) Urine WBC (0-5) /hpf Urine Bacteria (None) /hpf Urine Mucus (None) /hpf Crossmatch Assessment and Plan (1) Macrocytic anemia Narrative/Plan: Suspect component of acute blood loss without overt bleeding Current Visit: Yes Status: Acute Code(s): D53.9 - NUTRITIONAL ANEMIA, UNSPECIFIED SNOMED Code(s): 00612342 (2) ETOH abuse Current Visit: Yes Status: Acute Code(s): F10.10 - ALCOHOL ABUSE, UNCOMPLICATED SNOMED Code(s): 64906788 (3) Coagulopathy Current Visit: Yes Status: Acute Code(s): D68.9 - COAGULATION DEFECT, UNSPECIFIED SNOMED Code(s): 87649160 (4) Thrombocytopenia Current Visit: Yes Status: Acute Code(s): D69.6 - THROMBOCYTOPENIA, UNSPECIFIED SNOMED Code(s): 712718395 (5) Symptomatic anemia Current Visit: Yes Status: Acute Code(s): D64.9 - ANEMIA, UNSPECIFIED SNOMED Code(s): 608256618 Plan: 1. EGD colonoscopy scheduled tomorrow. 2. Protonix 40 mg IV daily. 3. Clear liquid diet. CBC monitoring. Alcohol abstinence advised. 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 The patient has indicated understanding and acceptance of the risks and procedures discussed. Thank you for this kind referral and the opportunity to participate in the care of your patient. This consultation was discussed with Dr. Madsen. The impression and plan of care have been directed as dictated.
[2018-02-16 15:22] VITALS: BMI 26.9
[2018-02-16] MEDS ORDERED: PEG 3350-NA SULF,BICARB,CL/KCL 4,000 ML BOTTLE PO ONE (16:00)
--- NOTE | 2018-02-16 16:26 | PN ---
PROGRESS NOTE DATE OF SERVICE: 02/16/2018. This 62-year-old woman who was admitted with severe anemia is being evaluated by Gastroenterology also. The possibility of GI bleed is also being considered. After transfusion hemoglobin is definitely increasing. EGD has been scheduled tomorrow. No chest pain. No palpitations. No fever. REVIEW OF SYSTEMS: CARDIOVASCULAR: No angina. RESPIRATORY: As mentioned earlier. GI: As mentioned earlier. : No dysuria. CURRENT MEDICATIONS: Reviewed and include: 1. Kent 5 mg q.8h p.r.n. 2. Rocephin 1 g q.8. 4. Ativan 1 mg daily. 5. Protonix. 6. GoLYTELY. 7. Restoril. 8. Vitamin B1. EXAM: Alert and oriented x2. Pulse is 83, blood pressure 100/60, respirations 16, temperature 97.2, pulse ox 97% room air. HEENT: Conjunctivae pale. NECK: No jugular venous distention. CARDIOVASCULAR: S1, S2. RESPIRATORY: Breath sounds diminished in the bases. A few scattered rhonchi. ABDOMEN: Soft, nontender. LEGS: No edema. NERVOUS SYSTEM: No focal deficits. LABS: WBC 2.9, hemoglobin 6.3. Sodium 130, potassium 3. UA showed UTI. ASSESSMENT: 1. Severe anemia, rule out GI bleed. 2. History EtOH. 3. Urinary tract infection. 4. Rule out peptic ulcer disease. 5. Hyponatremia. 6. Possible alcoholic hepatitis. 7. Hypomagnesemia. 8. Mild pancytopenia, possibly secondary to ETOH. 9. Chronic obstructive pulmonary disease. 10.Status post aortobifemoral bypass. 11.History endometriosis. 12.History of bowel obstruction. 13.History of appendectomy. 14.History of depression. 15.Remote history of nicotine dependence. RECOMMENDATIONS AND DISCUSSION: I recommend to continue current medication, continue symptomatic treatment. Otherwise, continue the antibiotics. Monitor hemoglobin closely. Other than that EGD, colonoscopy by Gastroenterology. One more unit of transfusion. Patient is NO CODE. Prognosis guarded because of multiple complex medical issues. Further recommendations to follow. I would recommend DVT prophylaxis. Repeat labs. Repeat potassium, supplementation. Guarded prognosis because of multiple complex medical issues. Further recommendations to follow. MMODL / IJN: [id number] / [facility]
[2018-02-16] MEDS: POTASSIUM CHLORIDE ER 20 MEQ TAB.ER PO SCH ×2 (16:57→18:09)
[2018-02-16 21:26] LABS: Anisocytosis Marked; HCT 24.9 % (34.0-46.0); MCH 32.9 pg (25.0-35.0); MCHC 33.4 g/dL (31.0-37.0); Macrocytosis Marked; RBC 2.52 m/uL (3.80-5.40); WBC 3.8 k/uL (3.8-10.6)
[2018-02-16 21:44] LABS: ALT 27 U/L (9-52); AST 36 U/L (14-36); Alkaline Phosphatase 62 U/L (38-126); Anion Gap 6 mmol/L; Blood Urea Nitrogen 9 mg/dL (7-17); Carbon Dioxide 22 mmol/L (22-30); Chloride 109 mmol/L (98-107); Glucose 88 mg/dL (74-99); Potassium 3.4 mmol/L (3.5-5.1); Sodium 137 mmol/L (137-145); Total Bilirubin 1.7 mg/dL (0.2-1.3); Total Protein 5.5 g/dL (6.3-8.2)
[2018-02-16 21:45] LABS: HGB 8.3 gm/dL (11.4-16.0); MCV 98.5 fL (80.0-100.0); RDW 25.1 % (11.5-15.5)
[2018-02-16 22:18] LABS: Platelet Count 76 k/uL (150-450)
[2018-02-17 05:36] VITALS: PULSE 77
[2018-02-17] MEDS: POTASSIUM CHLORIDE ER 20 MEQ TAB.ER PO SCH ×2 (06:22→06:23)
[2018-02-17 06:53] LABS: Anisocytosis Marked; Basophils % (A) 0 %; Eosinophils # (A) 0.1 k/uL (0-0.7); Eosinophils % (A) 4 %; HCT 23.1 % (34.0-46.0); HGB 7.8 gm/dL (11.4-16.0); Lymphocytes # (A) 0.9 k/uL (1.0-4.8); Lymphocytes % (A) 28 %; MCH 33.1 pg (25.0-35.0); MCHC 33.8 g/dL (31.0-37.0); MCV 97.9 fL (80.0-100.0); Macrocytosis Marked; Mean Platelet Volume 7.9; Monocytes # (A) 0.2 k/uL (0-1.0); Monocytes % (A) 6 %; Neutrophils % (A) 60 %; RBC 2.36 m/uL (3.80-5.40); RDW 24.9 % (11.5-15.5); WBC 3.3 k/uL (3.8-10.6)
[2018-02-17 06:54] LABS: Platelet Count 70 k/uL (150-450)
[2018-02-17 07:27] LABS: ALT 25 U/L (9-52); AST 32 U/L (14-36); Albumin 2.5 g/dL (3.5-5.0); Alkaline Phosphatase 50 U/L (38-126); Anion Gap 6 mmol/L; Blood Urea Nitrogen 8 mg/dL (7-17); Carbon Dioxide 23 mmol/L (22-30); Chloride 111 mmol/L (98-107); Glucose 86 mg/dL (74-99); Potassium 3.1 mmol/L (3.5-5.1); Sodium 140 mmol/L (137-145); Total Bilirubin 1.4 mg/dL (0.2-1.3); Total Protein 4.9 g/dL (6.3-8.2)
--- NOTE | 2018-02-17 07:59 | P.PN ---
Progress Note - Text Progress Note Date: 02/17/18 patient could not tolerate bowel prep last night. EGD today; colonoscopy postponed for now.
[2018-02-17] MEDS: cefTRIAXone IN SWFI 1,000 MG/10 ML SYRINGE IVP SCH (08:36)
[2018-02-17] MEDS: PANTOPRAZOLE 40 MG/10 ML VIAL IVP SCH (08:37)
[2018-02-17] MEDS ORDERED: IV FLUID CONTINUATION 1,000 ML IV ONE (12:56)
[2018-02-17] MEDS ORDERED: PROPOFOL 10 MG/ML 20 ML VIAL IV ONE (13:01)
--- NOTE | 2018-02-17 13:09 | P.PCN ---
Date of Procedure: 02/17/18 Procedure(s) Performed: BRIEF HISTORY: Patient is a 62-year-old, pleasant, white female with history of heavy alcohol abuse admitted hospital with severe symptomatic anemia and hemoglobin of 4.5 g/dL requiring blood transfusion. She is hence scheduled for an upper endoscopy to evaluate further. She declined colonoscopy today.. PROCEDURE PERFORMED: Esophagogastroduodenoscopy with biopsy. PREOPERATIVE DIAGNOSIS: Severe symptomatic anemia. IV sedation per anesthesia. PROCEDURE: After informed consent was obtained, the patient was brought into the endoscopy unit. IV sedation was administered by Anesthesia under continuous monitoring. Initially the Olympus GIF-140 video endoscope was inserted into the mouth. Esophagus intubated without any difficulty. It was gradually advanced into the stomach and duodenum and carefully examined. The bulb had mild duodenitis and the second part of the duodenum appeared normal. Labs from the duodenum were done for celiac disease. The scope at this time was withdrawn to the stomach, adequately insufflated with air, and upon careful examination, mucosa of the antrum had mild gastritis and biopsies were done from this area. The, body, cardia and the fundus appeared normal. The scope was then withdrawn into the esophagus. The GE junction was located at 39 cm from the incisors. The esophagus appeared normal. There were no erosions or ulcerations seen and the patient tolerated the procedure well. IMPRESSION: 1. Mild antral gastritis but no evidence of peptic ulcer. 2. Mild duodenitis. RECOMMENDATIONS: The findings of this examination were discussed with the patient . She was advised to follow with the biopsy results. She was recommended to have a colonoscopy done to investigate anemia but at this time she continues to decline. Resume regular diet.
--- NOTE | 2018-02-17 14:28 | P.PN ---
Progress Note - Text Progress Note Date: 02/17/18 Patient offered different prep choices for inpatient colonoscopy she declined. RTO 3-4 for reevaluation and discussion of outpatient colonoscopy.
[2018-02-17] MEDS: THIAMINE 100 MG TAB PO SCH (14:54)
[2018-02-17 15:29] VITALS: RESP 16; TEMP 96.9
[2018-02-17 15:32] VITALS: BP 122/68
--- NOTE | 2018-02-17 18:42 | DS ---
DISCHARGE SUMMARY DATE OF SERVICE: 02/17/2018 FINAL DIAGNOSES: 1. Severe anemia. Rule out gastrointestinal bleed. 2. History of ethanol use. 3. Patient refused endoscopies and medications with some noncompliance. 4. Urinary tract infection. 5. Rule out peptic ulcer disease. 6. Hyponatremia. 7. Possible alcoholic hepatitis. 8. Hypomagnesemia. 9. Mild pancytopenia secondary to ethanol. 10.Chronic obstructive pulmonary disease. 11.History of aortobifemoral bypass. 12.History of endometriosis. 13.History of bowel obstruction. 14.History of appendectomy. 15.Depression. 16.Remote history of nicotine dependence. DISCHARGE DISPOSITION: The patient will be discharged in stable condition with guarded prognosis. The patient is extremely keen on going home. HISTORY OF PRESENT ILLNESS: This 62-year-old woman with a past medical history of multiple medical problems was admitted with anemia, possibly GI bleed. Hemoglobin was found to be 5.2 and after transfusion improved to 7.8. I recommended EGD and colonoscopy. The patient refused blood draws, medications as well as endoscopies. The patient is keen on going home, so patient will be discharged in stable condition with guarded prognosis. On exam, vitals are stable. CARDIOVASCULAR SYSTEM: S1, S2 muffled. ABDOMEN: Soft. NERVOUS SYSTEM: No focal deficit. DISCHARGE ADVICE AND MEDICATIONS: 1. Diet is cardiac. 2. Activity limited until followup. 3. Follow up with Dr. Vu in 2 to 3 days. CBC, BMP. 4. Ceftin 500 mg p.o. b.i.d. for 10 days. 5. Protonix 40 mg daily. 6. Thiamine 100 mg daily. 7. Follow-up labs. 8. Follow up with Dr. Madsen as advised. Once again, the patient will be discharged in stable condition with guarded prognosis. MMODL / IJN: [id number] /
== END 2018-02-17 17:02 | disposition home or self-care (01) | DRG 812 ==
LOC: EC 11:41 → 6SEL 14:39
PROVIDERS: ADMIT Hospitalist; ATTEND Hospitalist
PROC: 30233N1 Transfusion of Nonautologous Red Blood Cells into Peripheral Vein, Percutaneous Approach (ICD-10-PCS; principal; 2018-02-15)
PROC: 0DB98ZX Excision of Duodenum, Via Natural or Artificial Opening Endoscopic, Diagnostic (ICD-10-PCS; 2018-02-15)
PROC: 0DB68ZX Excision of Stomach, Via Natural or Artificial Opening Endoscopic, Diagnostic (ICD-10-PCS; 2018-02-15)
DX: D64.9 Anemia, unspecified (principal); E87.1 Hypo-osmolality and hyponatremia; N39.0 Urinary tract infection, site not specified; D61.818 Other pancytopenia; F32.9 Major depressive disorder, single episode, unspecified; E83.42 Hypomagnesemia; K29.80 Duodenitis without bleeding; J44.9 Chronic obstructive pulmonary disease, unspecified; F10.10 Alcohol abuse, uncomplicated; Y90.0 Blood alcohol level of less than 20 mg/100 ml; R79.1 Abnormal coagulation profile; I73.9 Peripheral vascular disease, unspecified; K29.60 Other gastritis without bleeding; Z87.891 Personal history of nicotine dependence; Z91.19 Patient's noncompliance with other medical treatment and regimen; Z80.1 Family history of malignant neoplasm of trachea, bronchus and lung; Z80.8 Family history of malignant neoplasm of other organs or systems; Z81.8 Family history of other mental and behavioral disorders; Z82.3 Family history of stroke; Z90.11 Acquired absence of right breast and nipple; Z90.710 Acquired absence of both cervix and uterus; Z95.1 Presence of aortocoronary bypass graft; Z53.29 Procedure and treatment not carried out because of patient's decision for other reasons
CPT/HCPCS: 36415; 43239; 71045; 80053; 80320; 81001; 82140; 82550; 82553; 83735; 84443; 84484; 85025; 85027; 85610; 85730; 86850; 86900; 86901; 86920; 88305; 93005; 96361; 96372; 96374; 96375; 99285

== ENCOUNTER 2018-03-02 23:15 | Emergency (ER) | payer OTHER ==
[2018-03-02] MEDS ORDERED: ONDANSETRON 4 MG/2 ML VIAL IVP STA (23:28)
[2018-03-02] MEDS ORDERED: SODIUM CHLORIDE 0.9% 500 ML IV STA (23:28)
[2018-03-02] MEDS ORDERED: SODIUM CHLORIDE 0.9% 1,000 ML IV STA (23:28)
--- NOTE | 2018-03-03 00:11 | ED ---
General Adult HPI - General Chief complaint: Fall Stated complaint: Fall Time Seen by Provider: 03/02/18 23:18 Source: patient, RN notes reviewed, old records reviewed Mode of arrival: EMS Limitations: no limitations - History of Present Illness Initial comments: This is a 62-year-old female the ER for evaluation. This patient does say for evaluation regarding fall. Fall weakness. Patient does admit to positive alcoholism today and alcohol Intoxication. Patient states she just feels severely weak, dehydration, has had similar symptoms before with low blood counts. He did multiple transfusions. Patient denies any current pain no pain or injury from fall - Related Data Previous Rx's Medication Instructions Recorded Aspirin 81 mg PO DAILY #30 chewable 03/05/18 Atorvastatin [Lipitor] 40 mg PO HS #30 tab 03/05/18 Folic Acid 1 mg PO DAILY@1200 tab 03/05/18 Thiamine [Vitamin B-1] 100 mg PO BID@1200,1700 tab 03/05/18 Allergies Allergy/AdvReac Type Severity Reaction Status Date / Time No Known Allergies Allergy Verified 03/03/18 18:35 Review of Systems ROS Statement: Those systems with pertinent positive or pertinent negative responses have been documented in the HPI. ROS Other: All systems not noted in ROS Statement are negative. Past Medical History Past Medical History: Vascular Disorder Additional Past Medical History / Comment(s): ENDOMETREOSIS, "BORN WITH 10% RETINA LT EYE"able to see some shadows/light, past shingles >3 years ago, rt breast abcess, anemia with transfusion 01/2018 History of Any Multi-Drug Resistant Organisms: None Reported Past Surgical History: Appendectomy, Bowel Resection, Hysterectomy, Tubal Ligation Additional Past Surgical History / Comment(s): "Stent bilat GROIN", BARTHOLIN CYST REMOVED, TOTAL HX AND 4" OF SMALL INTESTINE REMOVED D/T ENDOMETREOSIS" aorto bifemoral bypass January 2017 preeti rios..i&d rt breast acbess pt also had partial right mastectomy. Past Anesthesia/Blood Transfusion Reactions: No Reported Reaction Past Psychological History: Depression Smoking Status: Former smoker Past Alcohol Use History: Daily Past Drug Use History: None Reported - Past Family History Father Family Medical History: Cancer Additional Family Medical History / Comment(s): LUNG CANCER(SMOKED), BRAIN TUMOR REMOVED-HAD RADIATION [place] THEN HAD STROKE. Mother Family Medical History: Cancer, Dementia Additional Family Medical History / Comment(s): COLON AND SKIN CANCER. ALSO HAD TB Brother(s) Additional Family Medical History / Comment(s): 1 BROTHER HAS MS, ANOTHER BROTHER FROM COMPLICATIONS FROM ETOH/SCHIZOPHRENIA General Exam Limitations: no limitations General appearance: alert, in no apparent distress Head exam: Present: atraumatic, normocephalic, normal inspection Eye exam: Present: normal appearance, PERRL, EOMI. Absent: scleral icterus, conjunctival injection, periorbital swelling ENT exam: Present: normal exam, mucous membranes moist Neck exam: Present: normal inspection. Absent: tenderness, meningismus, lymphadenopathy Respiratory exam: Present: normal lung sounds bilaterally. Absent: respiratory distress, wheezes, rales, rhonchi, stridor Cardiovascular Exam: Present: regular rate, normal rhythm, normal heart sounds. Absent: systolic murmur, diastolic murmur, rubs, gallop, clicks GI/Abdominal exam: Present: soft, normal bowel sounds. Absent: distended, tenderness, guarding, rebound, rigid Extremities exam: Present: normal inspection, full ROM, normal capillary refill. Absent: tenderness, pedal edema, joint swelling, calf tenderness Back exam: Present: normal inspection Neurological exam: Present: alert, oriented X3, CN II-XII intact Psychiatric exam: Present: normal affect, normal mood Skin exam: Present: warm, dry, intact, normal color. Absent: rash Course Vital Signs 03/02/18 03/03/18 03/03/18 23:24 00:53 01:25 Temperature 98.7 F 97.7 F Pulse Rate 82 83 94 Respiratory 18 18 16 Rate Blood Pressure 173/79 162/75 181/79 O2 Sat by Pulse 98 100 98 Oximetry Medical Decision Making - Medical Decision Making 62 female the ER with weakness. Electrolyte abnormalities, significant alcohol intoxication. Patient is able to cannulate currently, patient can be discharged home - Lab Data Result diagrams: 03/03/18 00:10 03/03/18 00:10 Lab Results 03/03/18 03/03/18 03/03/18 Range/Units 00:10 00:10 00:10 WBC (3.8-10.6) k/uL RBC (3.80-5.40) m/uL Hgb (11.4-16.0) gm/dL Hct (34.0-46.0) % MCV (80.0-100.0) fL MCH (25.0-35.0) pg MCHC (31.0-37.0) g/dL RDW (11.5-15.5) % Plt Count (150-450) k/uL Neutrophils % % Lymphocytes % % Monocytes % % Eosinophils % % Basophils % % Neutrophils # (1.3-7.7) k/uL Lymphocytes # (1.0-4.8) k/uL Monocytes # (0-1.0) k/uL Eosinophils # (0-0.7) k/uL Basophils # (0-0.2) k/uL Hypochromasia Poikilocytosis Anisocytosis Macrocytosis PT 11.3 (9.0-12.0) sec INR 1.2 H (<1.2) APTT 23.8 (22.0-30.0) sec Sodium 142 (137-145) mmol/L Potassium 2.8 L* (3.5-5.1) mmol/L Chloride 112 H (98-107) mmol/L Carbon Dioxide 22 (22-30) mmol/L Anion Gap 8 mmol/L BUN 6 L (7-17) mg/dL Creatinine 0.60 (0.52-1.04) mg/dL Est GFR (CKD-EPI)AfAm >90 (>60 ml/min/1.73 sqM) Est GFR (CKD-EPI)NonAf >90 (>60 ml/min/1.73 sqM) Glucose 94 (74-99) mg/dL Calcium 8.5 (8.4-10.2) mg/dL Phosphorus 2.7 (2.5-4.5) mg/dL Magnesium 1.4 L (1.6-2.3) mg/dL Total Bilirubin 0.7 (0.2-1.3) mg/dL AST 32 (14-36) U/L ALT 25 (9-52) U/L Alkaline Phosphatase 88 (38-126) U/L Total Creatine Kinase 32 (30-135) U/L CK-MB (CK-2) 0.5 (0.0-2.4) ng/mL CK-MB (CK-2) Rel Index 1.6 Troponin I <0.012 (0.000-0.034) ng/mL Total Protein 5.9 L (6.3-8.2) g/dL Albumin 3.0 L (3.5-5.0) g/dL TSH 5.230 H (0.465-4.680) mIU/L Serum Alcohol 27 mg/dL 03/03/18 Range/Units 00:10 WBC 5.3 (3.8-10.6) k/uL RBC 3.04 L (3.80-5.40) m/uL Hgb 9.2 L (11.4-16.0) gm/dL Hct 29.5 L (34.0-46.0) % MCV 97.0 (80.0-100.0) fL MCH 30.4 (25.0-35.0) pg MCHC 31.3 (31.0-37.0) g/dL RDW 21.7 H (11.5-15.5) % Plt Count 237 D (150-450) k/uL Neutrophils % 73 % Lymphocytes % 18 % Monocytes % 3 % Eosinophils % 4 % Basophils % 0 % Neutrophils # 3.9 (1.3-7.7) k/uL Lymphocytes # 1.0 (1.0-4.8) k/uL Monocytes # 0.1 (0-1.0) k/uL Eosinophils # 0.2 (0-0.7) k/uL Basophils # 0.0 (0-0.2) k/uL Hypochromasia Marked Poikilocytosis Slight Anisocytosis Moderate Macrocytosis Moderate PT (9.0-12.0) sec INR (<1.2) APTT (22.0-30.0) sec Sodium (137-145) mmol/L Potassium (3.5-5.1) mmol/L Chloride (98-107) mmol/L Carbon Dioxide (22-30) mmol/L Anion Gap mmol/L BUN (7-17) mg/dL Creatinine (0.52-1.04) mg/dL Est GFR (CKD-EPI)AfAm (>60 ml/min/1.73 sqM) Est GFR (CKD-EPI)NonAf (>60 ml/min/1.73 sqM) Glucose (74-99) mg/dL Calcium (8.4-10.2) mg/dL Phosphorus (2.5-4.5) mg/dL Magnesium (1.6-2.3) mg/dL Total Bilirubin (0.2-1.3) mg/dL AST (14-36) U/L ALT (9-52) U/L Alkaline Phosphatase (38-126) U/L Total Creatine Kinase (30-135) U/L CK-MB (CK-2) (0.0-2.4) ng/mL CK-MB (CK-2) Rel Index Troponin I (0.000-0.034) ng/mL Total Protein (6.3-8.2) g/dL Albumin (3.5-5.0) g/dL TSH (0.465-4.680) mIU/L Serum Alcohol mg/dL Disposition Clinical Impression: ETOH abuse, Hypomagnesemia, Hypokalemia, Fall Disposition: HOME SELF-CARE Condition: Good Instructions: Fall Prevention for Older Adults (ED) Is patient prescribed a controlled substance at d/c from ED?: No Referrals: Sarah Beth Vu MD [Primary Care Provider] - 1-2 days
[2018-03-03 00:27] LABS: Anisocytosis Moderate; Basophils % (A) 0 %; Eosinophils # (A) 0.2 k/uL (0-0.7); Eosinophils % (A) 4 %; HCT 29.5 % (34.0-46.0); HGB 9.2 gm/dL (11.4-16.0); Hypochromasia Marked; Lymphocytes % (A) 18 %; MCH 30.4 pg (25.0-35.0); MCHC 31.3 g/dL (31.0-37.0); Macrocytosis Moderate; Mean Platelet Volume 8.6; Monocytes # (A) 0.1 k/uL (0-1.0); Monocytes % (A) 3 %; Neutrophils # (A) 3.9 k/uL (1.3-7.7); Neutrophils % (A) 73 %; Poikilocytosis Slight; RBC 3.04 m/uL (3.80-5.40); RDW 21.7 % (11.5-15.5); WBC 5.3 k/uL (3.8-10.6)
[2018-03-03 00:28] LABS: Platelet Count 237 k/uL (150-450)
[2018-03-03 00:35] LABS: ALT 25 U/L (9-52); AST 32 U/L (14-36); Alcohol 27 mg/dL; Alkaline Phosphatase 88 U/L (38-126); Anion Gap 8 mmol/L; Blood Urea Nitrogen 6 mg/dL (7-17); Calcium 8.5 mg/dL (8.4-10.2); Carbon Dioxide 22 mmol/L (22-30); Chloride 112 mmol/L (98-107); Glucose 94 mg/dL (74-99); Magnesium 1.4 mg/dL (1.6-2.3); Phosphorus 2.7 mg/dL (2.5-4.5); Sodium 142 mmol/L (137-145); Total Bilirubin 0.7 mg/dL (0.2-1.3); Total Protein 5.9 g/dL (6.3-8.2)
[2018-03-03 00:45] LABS: INR 1.2 (<1.2); Partial Thromboplastin Time 23.8 sec (22.0-30.0); Prothrombin Time 11.3 sec (9.0-12.0)
[2018-03-03 00:46] LABS: Potassium 2.8 mmol/L (3.5-5.1)
[2018-03-03] MEDS ORDERED: MAGNESIUM OXIDE 400 MG TAB PO STA (00:46)
[2018-03-03] MEDS ORDERED: POTASSIUM BICARBONATE/CIT AC 20 MEQ TABLET.EFF PO ONE (00:46)
[2018-03-03 00:50] LABS: Creatine Kinase 32 U/L (30-135)
[2018-03-03 01:03] LABS: Creatine Kinase MB 0.5 ng/mL (0.0-2.4); Troponin I <0.012 ng/mL (0.000-0.034)
[2018-03-03 01:49] VITALS: BP 181/79; PULSE 94; RESP 16; TEMP 97.7
--- NOTE | 2018-03-04 19:01 | CONS ---
CONSULTATION DATE OF CONSULTATION: 03/04/2018 CHIEF COMPLAINT: Stroke. HISTORY OF PRESENT ILLNESS: Mrs. Lal is a pleasant 62-year-old female who is being evaluated by the neurology service per the request of Dr. Cabrera for a stroke. The patient states that she felt a sudden onset of numbness and tingling involving her left upper extremity and left lower extremity on Thursday at approximately 4 p.m. She did not seek immediate medical attention. At approximately 10 p.m., she states that she fell due to the numbness and at that time noticed some weakness on the left side. She states that she was brought into the emergency room but had a negative workup and was discharged home. When she went home, she noticed that she was still having weakness on the left side and almost fell a couple of times. She contacted Dr. Vu, who is her primary care physician, who recommended that she return to the hospital. On her initial visit to the emergency room she did have a CT scan of the brain which showed no acute abnormalities. The patient does not take any anti-platelet medications at home. The patient was admitted for further workup and management. A carotid Doppler was done which showed no hemodynamically significant stenosis. Her CBC showed significant anemia with a hemoglobin of 7.9 and hematocrit of 24%. Her comprehensive metabolic profile showed hypokalemia at 3.4 and hypocalcemia at 7.6. Her fasting lipid panel was normal. She did have an EEG today and I did review the study, which showed no abnormalities. At the time of my evaluation, she is lying in her bed and appears to be in no acute distress. She is still having some weakness on her left side along with some numbness, mainly in the left upper extremity. She has been started on aspirin 325 mg daily. PAST MEDICAL HISTORY: 1. Endometriosis. 2. Chronic anemia. 3. History of bowel resection. 4. Hysterectomy. 5. Tubal ligation. 6. Appendectomy. 7. History of depression. SOCIAL HISTORY: The patient quit smoking 6 years ago. She does drink alcohol daily. She denies any drug use. FAMILY HISTORY: Positive for cancer and dementia. She also has a family history of strokes. HOME MEDICATIONS: Reviewed in the chart. ALLERGIES: NO KNOWN DRUG ALLERGIES. REVIEW OF SYSTEMS: CONSTITUTIONAL: Negative. EYES: Negative. ENT: Negative. CARDIOVASCULAR: Negative. RESPIRATORY: Negative. NEUROLOGICAL: As mentioned above. GASTROINTESTINAL: Negative. GENITOURINARY: Negative. PSYCHIATRIC: Positive for history of depression. DERMATOLOGICAL: Negative. MUSCULOSKELETAL: Positive for occasional joint pain. ENDOCRINE: Negative. PHYSICAL EXAMINATION: Vital signs show a temperature of 98.3, pulse 88, respiration 18, blood pressure 134/77. GENERAL APPEARANCE: The patient is a well-developed female who appears to be in no acute distress. HEENT: Normocephalic, atraumatic. Left facial drooping is seen. NECK: Supple with no masses felt. CARDIOVASCULAR: Regular rate and rhythm. ABDOMEN: Nontender, nondistended. Extremities showed no edema or clubbing. NEUROLOGICAL EXAM: The patient is awake and oriented x3. Speech and language are normal. Strength is 4/5 on the left and 5/5 on the right. Dysdiadochokinesia is present on the left. Pronator drift is present on the left. Sensory exam showed diminished light touch sensation on the left upper extremity compared to the right. Cranial nerve testing showed left facial weakness. IMPRESSION: 1. Acute ischemic stroke, right middle cerebral artery distribution. 2. Left hemiparesis. 3. Anemia. 4. Daily alcohol use. RECOMMENDATION: The patient does appear to have suffered an acute ischemic stroke and continues to have left hemiparesis and left upper extremity sensory deficit. She has been started on aspirin 325 mg daily. Continue this regimen. Her carotid Doppler showed no hemodynamically significant stenosis. I will order an MRI of the brain without contrast. She does report mild claustrophobia, and I will pre-treat her with Ativan. Her fasting lipid panel was normal. I will order a serum homocystine level. I do recommend further workup regarding her anemia, as she has been quite anemic recently, as she did have a recent admission for similar findings approximately one month ago. The patient was counseled on alcohol cessation. Continue neuro checks. Physical Therapy and Occupational Therapy will be consulted. I will continue to follow with you. Further recommendations to follow. Thank you for allowing me to participate in the care of your patient. If you have any questions, please feel free to contact me. LAVELLE / JACINTA: [id number] /
== END 2018-03-03 01:30 | disposition home or self-care (01) ==
LOC: EC 23:15
DX: E83.42 Hypomagnesemia (principal); E87.6 Hypokalemia; F10.129 Alcohol abuse with intoxication, unspecified; Z87.891 Personal history of nicotine dependence; W19.XXXA Unspecified fall, initial encounter
CPT/HCPCS: 99284; 96374; 96361; 36415; 93005; 80053; 82550; 82553; 83735; 84100; 84443; 84484; 85025; 85610; 85730; 80320; J2405

== ENCOUNTER 2018-03-03 15:34 | Inpatient (IN) | payer OTHER ==
[2018-03-03] MEDS ORDERED: Potassium Replacement Protocol 1 EACH MISC MISCELLANE PRN (18:12)
[2018-03-03] MEDS ORDERED: Magnesium Replacement Protocol 1 EACH MISC MISCELLANE PRN (18:12)
[2018-03-03 18:50] LABS: Magnesium 1.4 mg/dL (1.6-2.3)
[2018-03-03] MEDS: SODIUM CHLORIDE 0.9% 1,000 ML IV SCH (19:03)
[2018-03-03 19:39] LABS: Anion Gap 3 mmol/L; Blood Urea Nitrogen 7 mg/dL (7-17); Calcium 7.6 mg/dL (8.4-10.2); Carbon Dioxide 25 mmol/L (22-30); Chloride 111 mmol/L (98-107); Glucose 95 mg/dL (74-99); Potassium 3.4 mmol/L (3.5-5.1); Sodium 139 mmol/L (137-145)
[2018-03-03 20:52] LABS: Glucose,Whole Blood 104 mg/dL (75-99)
[2018-03-03] MEDS ORDERED: ATORVASTATIN 20 MG TAB PO SCH (21:00)
[2018-03-03] MEDS: FAMOTIDINE 20 MG/2 ML VIAL IV SCH (21:30)
[2018-03-03] MEDS: MAGNESIUM SULFATE-D5W PMX 1 GM in DEXTROSE/WATER 1 100ML.BAG IVPB SCH (22:06)
--- NOTE | 2018-03-03 22:20 | US ---
EXAMINATION TYPE: US carotid duplex BILAT DATE OF EXAM: 03/03/2018 COMPARISON: NONE CLINICAL HISTORY: Stenosis. Stroke EXAM MEASUREMENTS: RIGHT: Peak Systolic Velocity (PSV) cm/sec ----- Right CCA: 58.0 ----- Right ICA: 101.6 ----- Right ECA: 76.9 ICA/CCA ratio: 1.8 RIGHT: End Diastole cm/sec ----- Right CCA: 18.8 ----- Right ICA: 34.8 ----- Right ECA: 15.9 LEFT: Peak Systolic Velocity (PSV) cm/sec ----- Left CCA: 74.0 ----- Left ICA: 78.4 ----- Left ECA: 72.5 ICA/CCA ratio: 1.1 LEFT: End Diastole cm/sec ----- Left CCA: 18.8 ----- Left ICA: 18.8 ----- Left ECA: 15.8 VERTEBRALS (direction of flow): Right Vertebral: Antegrade Left Vertebral: Antegrade Rhythm: Normal IMPRESSION: NO SIGNIFICANT STENOSIS SEEN .
[2018-03-04] MEDS: MAGNESIUM SULFATE-D5W PMX 1 GM in DEXTROSE/WATER 1 100ML.BAG IVPB SCH ×2 (00:07→06:21)
[2018-03-04 02:10] LABS: Hemoglobin A1C 4.6 % (4.0-6.0)
[2018-03-04 03:17] VITALS: RESP 18
[2018-03-04 05:58] LABS: Anion Gap 2 mmol/L; Blood Urea Nitrogen 6 mg/dL (7-17); Calcium 7.4 mg/dL (8.4-10.2); Carbon Dioxide 24 mmol/L (22-30); Chloride 112 mmol/L (98-107); Cholesterol 89 mg/dL (<200); Glucose 91 mg/dL (74-99); HDL Cholesterol 35 mg/dL (40-60); LDL Cholesterol,Calculated 40 mg/dL (0-99); Magnesium 2.6 mg/dL (1.6-2.3); Potassium 3.2 mmol/L (3.5-5.1); Sodium 138 mmol/L (137-145); Triglycerides 69 mg/dL (<150)
[2018-03-04 05:59] LABS: Anisocytosis Moderate; Basophils % (A) 1 %; Eosinophils # (A) 0.2 k/uL (0-0.7); Eosinophils % (A) 5 %; HCT 24.5 % (34.0-46.0); HGB 7.9 gm/dL (11.4-16.0); Hypochromasia Marked; Lymphocytes # (A) 0.9 k/uL (1.0-4.8); Lymphocytes % (A) 20 %; MCHC 32.2 g/dL (31.0-37.0); MCV 99.4 fL (80.0-100.0); Macrocytosis Moderate; Mean Platelet Volume 7.8; Monocytes # (A) 0.1 k/uL (0-1.0); Monocytes % (A) 3 %; Neutrophils # (A) 3.3 k/uL (1.3-7.7); Neutrophils % (A) 70 %; Platelet Count 171 k/uL (150-450); Poikilocytosis Slight; RBC 2.46 m/uL (3.80-5.40); WBC 4.6 k/uL (3.8-10.6)
[2018-03-04] MEDS: DOCUSATE 100 MG CAP PO SCH ×4 (06:18→16:09)
[2018-03-04] MEDS: SODIUM CHLORIDE 0.9% 1,000 ML IV SCH ×2 (06:23→08:18)
[2018-03-04] MEDS: MULTIVITAMINS, THERA 1 EACH TAB PO SCH (08:13)
[2018-03-04] MEDS: ASPIRIN 325 MG TAB PO SCH (08:13)
[2018-03-04] MEDS: POTASSIUM CHLORIDE ER 20 MEQ TAB.ER PO SCH ×2 (08:13→09:04)
[2018-03-04] MEDS: FAMOTIDINE 20 MG/2 ML VIAL IV SCH ×2 (08:14→22:08)
[2018-03-04] MEDS: FOLIC ACID 1 MG TAB PO SCH (08:14)
--- NOTE | 2018-03-04 10:53 | ECHOF ---
Referral Reason:Thrombus MEASUREMENTS -------- HEIGHT: 157.5 cm WEIGHT: 72.1 kg BP: RVIDd: 2.3 cm (< 3.3) IVSd: 1.0 cm (0.6 - 1.1) LVIDd: 4.6 cm (3.9 - 5.3) LVPWd: 1.1 cm (0.6 - 1.1) IVSs: 1.6 cm LVIDs: 3.1 cm LVPWs: 1.4 cm Ao Diam: 3.0 cm (2.0 - 3.7) AV Cusp: 1.8 cm (1.5 - 2.6) LA Diam: 3.3 cm (2.7 - 3.8) MV EXCURSION: 15.965 mm (> 18.000) MV EF SLOPE: 133 mm/s (70 - 150) EPSS: 0.6 cm MV E Cristi: 0.97 m/s MV DecT: 190 ms MV A Cristi: 0.95 m/s MV E/A Ratio: 1.02 RAP: 5.00 mmHg RVSP: 25.72 mmHg FINDINGS -------- Sinus rhythm. This was a technically difficult study with suboptimal views. The left ventricular size is normal. Left ventricular wall thickness is normal. Overall left vent ricular systolic function is low-normal with, an EF between 50 - 55 %. The right ventricle is normal in size and function. The left atrial size is normal. The right atrium is normal in size. Lumason used The aortic valve is trileaflet, and appears structurally normal. No aortic stenosis or regurgitation. The mitral valve leaflets are mildly thickened. Mild mitral regurgitation is present. Mild tricuspid regurgitation present. The right ventricular systolic pressure, as measured by Doppl er, is 25.72mmHg. Pulmonic valve appears structurally normal. The aortic root size is normal. The pericardium is normal. CONCLUSIONS -------- 1. Sinus rhythm. 2. This was a technically difficult study with suboptimal views. 3. The left ventricular size is normal. 4. Left ventricular wall thickness is normal. 5. Overall left ventricular systolic function is low-normal with, an EF between 50 - 55 %. 6. The right ventricle is normal in size and function. 7. The left atrial size is normal. 8. The right atrium is normal in size. 9. Lumason used 10. The aortic valve is trileaflet, and appears structurally normal. No aortic stenosis or regurgitat ion. 11. The mitral valve leaflets are mildly thickened. 12. Mild mitral regurgitation is present. 13. Mild tricuspid regurgitation present. 14. The right ventricular systolic pressure, as measured by Doppler, is 25.72mmHg. 15. Pulmonic valve appears structurally normal. 16. The aortic root size is normal. 17. The pericardium is normal. 18.Consider EMILIE if clinically indicated SNUFF CONTAINER INSPECTOR: Lyndsay Quijano RDCS
[2018-03-04] MEDS ORDERED: THIAMINE 100 MG TAB PO SCH ×2 (12:00→17:00)
[2018-03-04] MEDS ORDERED: LORazepam 2 MG/ML INJ IV PRN ×3 (12:23)
[2018-03-04] MEDS ORDERED: THIAMINE 100 MG/ML 2 ML VIAL IM STA (12:23)
--- NOTE | 2018-03-04 15:26 | P.HPIM ---
History of Present Illness 60-year-old female with the multiple previous medical problems but he doesn't use any medications came to the hospital with the facial droop, left arm weakness and left leg weakness. CT of the head was done yesterday at the [facility] which showed acute to subacute ischemic stroke in the posterior parietal lobes on the right side and her symptoms on the right left side. Patient has other areas of chronic ischemia on the CT of the brain. Patient was started on aspirin. Echocardiac exam was obtained carotid Doppler was obtained, LDL is obtain all of which did not show any significant abnormality patient was started on statin as well. Patient used to smoke in the past. Patient does drink on regular basis around a pint a pint and half of hard liquor. Which she is willing to quit patient is on Ativan CIWA protocol, patient never had any withdrawals and doesn't believe she is going to have withdrawals. Neurology was consulted and I'm obtaining consultation by Dr. Knox for possible inpatient rehabilitation. Patient's symptoms started on Thursday Review of Systems REVIEW OF SYSTEMS: CONSTITUTIONAL: No fever, no malaise, no fatigue. HEENT: No recent visual problems or hearing problems. Denied any sore throat. CARDIOVASCULAR: No chest pain, orthopnea, PND, no palpitations, no syncope. PULMONARY: No shortness of breath, no cough, no hemoptysis. GASTROINTESTINAL: No diarrhea, no nausea, no vomiting, no abdominal pain. Normoactive bowel sounds. NEUROLOGICAL: As mentioned above HEMATOLOGICAL: Denies any bleeding or petechiae. GENITOURINARY: Denies any burning micturition, frequency, or urgency. MUSCULOSKELETAL/RHEUMATOLOGICAL: Denies any joint pain, swelling, or any muscle pain. ENDOCRINE: Denies any polyuria or polydipsia. The rest of the 14-point review of systems is negative. Past Medical History Past Medical History: Vascular Disorder Additional Past Medical History / Comment(s): ENDOMETREOSIS, "BORN WITH 10% RETINA LT EYE"able to see some shadows/light, past shingles >3 years ago, rt breast abcess, anemia with transfusion 01/2018 History of Any Multi-Drug Resistant Organisms: None Reported Past Surgical History: Appendectomy, Bowel Resection, Hysterectomy, Tubal Ligation Additional Past Surgical History / Comment(s): "Stent bilat GROIN", BARTHOLIN CYST REMOVED, TOTAL HX AND 4" OF SMALL INTESTINE REMOVED D/T ENDOMETREOSIS" aorto bifemoral bypass January 2017 preeti rios..i&d rt breast acbess pt also had partial right mastectomy. Past Anesthesia/Blood Transfusion Reactions: No Reported Reaction Past Psychological History: Depression Additional Psychological History / Comment(s): Single and lives independently, has walker and toilet riser. He has a female friend who is helping her with her shopping and some other activities. 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 No extensive travel. No animal exposures. Stop tobacco use in 2011. Denies alcohol use or recreational drug use Smoking Status: Former smoker Past Alcohol Use History: Daily Additional Past Alcohol Use History / Comment(s): HISTORY OF 1 TO 1.5 PINTS OF SCHNAPPS A DAY NOW OCC. STARTED SMOKING AT AGE 16(1971), SMOKED 1 PPD, QUIT 2011 Past Drug Use History: None Reported - Past Family History Father Family Medical History: Cancer Additional Family Medical History / Comment(s): LUNG CANCER(SMOKED), BRAIN TUMOR REMOVED-HAD RADIATION [place] THEN HAD STROKE. Mother Family Medical History: Cancer, Dementia Additional Family Medical History / Comment(s): COLON AND SKIN CANCER. ALSO HAD TB Brother(s) Additional Family Medical History / Comment(s): 1 BROTHER HAS MS, ANOTHER BROTHER FROM COMPLICATIONS FROM ETOH/SCHIZOPHRENIA Medications and Allergies Home Medications Medication Instructions Recorded Confirmed Type No Known Home Medications 03/02/18 03/03/18 History Allergies Allergy/AdvReac Type Severity Reaction Status Date / Time No Known Allergies Allergy Verified 03/03/18 18:35 Physical Exam Vitals: Vital Signs Temp Pulse Pulse Resp BP Pulse Ox 03/04/18 12:06 94 L 03/04/18 11:47 97.8 F 75 18 146/93 96 03/04/18 09:00 96 03/04/18 08:13 98.4 F 93 18 153/84 96 03/04/18 04:22 97.6 F 95 18 146/86 97 03/04/18 04:00 90 18 03/04/18 00:00 90 18 03/03/18 20:00 97.8 F 82 18 143/79 98 03/03/18 18:52 16 03/03/18 17:52 99 03/03/18 17:31 97.0 F L 76 16 154/74 99 Intake and Output 03/04/18 03/04/18 03/04/18 06:59 14:59 22:59 Intake Total 20 450 Output Total 200 500 Balance -180 -50 Intake: IV 20 10 Invasive Line 1 20 10 Oral 440 Output: Urine 200 500 Stool 0 0 Other: Voiding Method Bedside Commode Bedside Commode # Voids 1 Weight 72.2 kg PHYSICAL EXAMINATION: GENERAL: The patient is alert and oriented x3, not in any acute distress. Well developed, well nourished. HEENT: Pupils are round and equally reacting to light. EOMI. No scleral icterus. No conjunctival pallor. Normocephalic, atraumatic. No pharyngeal erythema. No thyromegaly. CARDIOVASCULAR: S1 and S2 present. No murmurs, rubs, or gallops. PULMONARY: Chest is clear to auscultation, no wheezing or crackles. ABDOMEN: Soft, nontender, nondistended, normoactive bowel sounds. No palpable organomegaly. MUSCULOSKELETAL: No joint swelling or deformity. EXTREMITIES: No cyanosis, clubbing, or pedal edema. NEUROLOGICAL: Patient has facial droop towards left 4/5 strength in left upper extremity, 4/5 strength in left lower extremity SKIN: No rashes. Results CBC & Chem 7: 03/04/18 05:15 03/04/18 11:56 Labs: Abnormal Lab Results - Last 24 Hours (Table) 03/03/18 03/03/18 03/03/18 Range/Units 18:26 18:26 20:50 RBC (3.80-5.40) m/uL Hgb (11.4-16.0) gm/dL Hct (34.0-46.0) % RDW (11.5-15.5) % Lymphocytes # (1.0-4.8) k/uL Potassium 3.4 L (3.5-5.1) mmol/L Chloride 111 H (98-107) mmol/L BUN (7-17) mg/dL POC Glucose (mg/dL) 104 H (75-99) mg/dL Calcium 7.6 L (8.4-10.2) mg/dL Magnesium 1.4 L (1.6-2.3) mg/dL HDL Cholesterol 38 L (40-60) mg/dL 03/04/18 03/04/18 Range/Units 05:15 05:15 RBC 2.46 L (3.80-5.40) m/uL Hgb 7.9 L (11.4-16.0) gm/dL Hct 24.5 L (34.0-46.0) % RDW 22.0 H (11.5-15.5) % Lymphocytes # 0.9 L (1.0-4.8) k/uL Potassium 3.2 L (3.5-5.1) mmol/L Chloride 112 H (98-107) mmol/L BUN 6 L (7-17) mg/dL POC Glucose (mg/dL) (75-99) mg/dL Calcium 7.4 L (8.4-10.2) mg/dL Magnesium 2.6 H (1.6-2.3) mg/dL HDL Cholesterol 35 L (40-60) mg/dL Thrombosis Risk Factor Assmnt - Choose All That Apply Each Factor Represents 1 point: Obesity (BMI >25) Other Risk Factors: Yes Each Risk Factor Represents 2 Points: Age 61-74 years Other congenital or acquired thrombophilia - If yes, enter type in comment: No Thrombosis Risk Factor Assessment Total Risk Factor Score: 3 Thrombosis Risk Factor Assessment Level: Moderate Risk Assessment and Plan Plan: -Cerebral vascular accident: Probably ischemic stroke involving the right cerebral hemisphere middle cerebral artery territory in the area of motor cortex. Earlier today she should've MRI to neurology as patient has hemiplegia which doesn't normally happen with cortical strokes, can happen with strokes in the area of coronary radiata or internal capsule. Patient was started on aspirin and a statin and patient is willing to be competent with her medications. -Nicotine abuse history in the past -Alcohol abuse: Counseling was provided -Chronic anemia we'll obtain ferritin levels probably secondary to chronic alcoholism.
--- NOTE | 2018-03-04 16:13 | EEG ---
ELECTROENCEPHALOGRAM REPORT DATE OF SERVICE: 03/04/2018 REASON FOR TESTING: Stroke. DESCRIPTION OF THE PROCEDURE: This EEG was performed using a 21-channel digital electroencephalograph, following international 10-20 system. DESCRIPTION OF THE RECORDING: From the beginning of the tracing, and with the patient's eyes closed, the background rhythm was mostly consisting of 8 Hz alpha frequency in the posterior occipital leads. Some asymmetry is noticed with more muscle artifacts seen in the right frontal leads compared to the left. Photic stimulation was performed with a minimal driving response seen. No pathological waves were elicited. Hyperventilation was not performed. The patient does reach stage II of sleep during the tracing and occasional sleep spindles are seen. No epileptiform discharges were seen. Her EKG lead showed a regular rate and rhythm. INTERPRETATION: This asleep and awake EEG can be considered within normal limits. There was no asymmetry seen. No epileptiform discharges were noticed. The absence of epileptiform discharges does not rule out the diagnosis of epilepsy; therefore clinical correlation is recommended. MMGAL / OLUN: [id number] /
--- NOTE | 2018-03-04 16:29 | P.CONS ---
History of Present Illness - Chief Complaint Left hemiparesthesias - History of Present Illness I had the opportunity to see patient for inpatient rehabilitation consultation with regard to gait disturbance. She was admitted to [facility] March 02 acute onset left-sided weakness, face arm and leg. EEG within normal limits. PT reports independent with bed mobility and minimal assistance for gait 50 feet with roller walker. Speech therapy says cognitive evaluation and plan some cognitive rehab. OT prescribed. Previous functional history as elicited from patient: 62-year-old right-handed white female is and lives and 2 floor home, alone. Retired. Describes independent with own cooking, laundry, sponge bath sitting down and gait with 4 wheeled walker. States can drive but hasn't driven for the last year due to not having a functional car. Dr. Rodrigues is regular doctor. History smoking but doesn't smoke currently. Drinks a pint and a half a day. Family history father with stroke in mother with colon cancer. Review of Systems Review of systems: ENT: Denies sneezes or discharge. Eyes: Denies discharge or photophobia. Cardiac: Denies chest pain or palpitation. Pulmonary: Denies cough or shortness of breath. Breast: Denies discharge or lumps. Gastrointestinal: Denies nausea, emesis, constipation, diarrhea. Genitourinary: Denies discharge or frequency. Musculoskeletal: Denies muscle or bone a aches. Neurologic left-sided weakness and numbness, face arm and leg. Endocrine: Denies shakes or sweats. Oncology: Denies cancers. Dermatologic: Denies rash, itching, pruritus. ALLERGY/immunology: Denies sneezes, rashes. Past Medical History Past Medical History: Vascular Disorder Additional Past Medical History / Comment(s): ENDOMETREOSIS, "BORN WITH 10% RETINA LT EYE"able to see some shadows/light, past shingles >3 years ago, rt breast abcess, anemia with transfusion 01/2018 History of Any Multi-Drug Resistant Organisms: None Reported Past Surgical History: Appendectomy, Bowel Resection, Hysterectomy, Tubal Ligation Additional Past Surgical History / Comment(s): "Stent bilat GROIN", BARTHOLIN CYST REMOVED, TOTAL HX AND 4" OF SMALL INTESTINE REMOVED D/T ENDOMETREOSIS" aorto bifemoral bypass January 2017 preeti rios..i&d rt breast acbess pt also had partial right mastectomy. Past Anesthesia/Blood Transfusion Reactions: No Reported Reaction Past Psychological History: Depression Additional Psychological History / Comment(s): Single and lives independently, has walker and toilet riser. He has a female friend who is helping her with her shopping and some other activities. 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 No experience. No extensive travel. No animal exposures. Stop tobacco use in 2011. Denies alcohol use or recreational drug use Smoking Status: Former smoker Past Alcohol Use History: Daily Additional Past Alcohol Use History / Comment(s): HISTORY OF 1 TO 1.5 PINTS OF SCHNAPPS A DAY NOW OCC. STARTED SMOKING AT AGE 16(1971), SMOKED 1 PPD, QUIT 2011 Past Drug Use History: None Reported - Past Family History Father Family Medical History: Cancer Additional Family Medical History / Comment(s): LUNG CANCER(SMOKED), BRAIN TUMOR REMOVED-HAD RADIATION [place] THEN HAD STROKE. Mother Family Medical History: Cancer, Dementia Additional Family Medical History / Comment(s): COLON AND SKIN CANCER. ALSO HAD TB Brother(s) Additional Family Medical History / Comment(s): 1 BROTHER HAS MS, ANOTHER BROTHER FROM COMPLICATIONS FROM ETOH/SCHIZOPHRENIA Medications and Allergies Home Medications Medication Instructions Recorded Confirmed Type No Known Home Medications 03/02/18 03/03/18 History Allergies Allergy/AdvReac Type Severity Reaction Status Date / Time No Known Allergies Allergy Verified 03/03/18 18:35 Physical Exam Vitals: Vital Signs Temp Pulse Pulse Resp BP Pulse Ox 03/04/18 12:06 94 L 03/04/18 11:47 97.8 F 75 18 146/93 96 03/04/18 09:00 96 03/04/18 08:13 98.4 F 93 18 153/84 96 03/04/18 04:22 97.6 F 95 18 146/86 97 03/04/18 04:00 90 18 03/04/18 00:00 90 18 03/03/18 20:00 97.8 F 82 18 143/79 98 03/03/18 18:52 16 03/03/18 17:52 99 03/03/18 17:31 97.0 F L 76 16 154/74 99 Intake and Output 03/04/18 03/04/18 03/04/18 06:59 14:59 22:59 Intake Total 20 450 Output Total 200 500 Balance -180 -50 Intake: IV 20 10 Invasive Line 1 20 10 Oral 440 Output: Urine 200 500 Stool 0 0 Other: Voiding Method Bedside Commode Bedside Commode # Voids 1 Weight 72.2 kg Skin: Good color, texture, turgor. General: Medium build and comfortable appearance. Head: Normocephalic, atraumatic. Eyes: Symmetric. Pupils equal round. Ears: Symmetric. Hearing within normal limits. Mouth: Clear. Neck: Supple. Carotid without bruit. Cardiac: Regular rate and rhythm. Lungs: Clear anteriorly and posteriorly. Abdomen: Soft active nontender. Extremities: Normal tone. Neurological: Mental status: Alert, cooperative, pleasant. Cranial nerves: Left facial weakness with drooping of mouth. Motor: Normal strength and isolation right side. Left arm and leg week with 4/ 5 in hand and apraxia hand and ankle. Sensation: Intact throughout. DTRs: Symmetric and equal throughout. Mobility: Reports that he has been getting up on own to bathroom despite knowing that she is not supposed to. Results CBC & Chem 7: 03/04/18 05:15 03/04/18 11:56 Labs: Abnormal Lab Results - Last 24 Hours (Table) 03/03/18 03/03/18 03/03/18 Range/Units 18:26 18:26 20:50 RBC (3.80-5.40) m/uL Hgb (11.4-16.0) gm/dL Hct (34.0-46.0) % RDW (11.5-15.5) % Lymphocytes # (1.0-4.8) k/uL Potassium 3.4 L (3.5-5.1) mmol/L Chloride 111 H (98-107) mmol/L BUN (7-17) mg/dL POC Glucose (mg/dL) 104 H (75-99) mg/dL Calcium 7.6 L (8.4-10.2) mg/dL Magnesium 1.4 L (1.6-2.3) mg/dL HDL Cholesterol 38 L (40-60) mg/dL 03/04/18 03/04/18 Range/Units 05:15 05:15 RBC 2.46 L (3.80-5.40) m/uL Hgb 7.9 L (11.4-16.0) gm/dL Hct 24.5 L (34.0-46.0) % RDW 22.0 H (11.5-15.5) % Lymphocytes # 0.9 L (1.0-4.8) k/uL Potassium 3.2 L (3.5-5.1) mmol/L Chloride 112 H (98-107) mmol/L BUN 6 L (7-17) mg/dL POC Glucose (mg/dL) (75-99) mg/dL Calcium 7.4 L (8.4-10.2) mg/dL Magnesium 2.6 H (1.6-2.3) mg/dL HDL Cholesterol 35 L (40-60) mg/dL Assessment and Plan (1) Atherosclerotic peripheral vascular disease Current Visit: No Status: Acute Code(s): I70.209 - UNSP ATHSCL [place] ARTERIES OF EXTREMITIES, UNSP EXTREMITY SNOMED Code(s): 946053773 Plan: Impression: 1. Gait disturbance. 2. Acute stroke with result in left hemiparesthesias, nondominant side. 3. Peripheral vascular disease. 4. History of alcohol abuse. Comments and plan: At this time PT and speech are ongoing and OT prescribed. Follow therapies with yourself for possible need and benefit of inpatient rehab. Note patient lives alone, scribes multiple friends but nontender consistently dependent on as they work.
[2018-03-04] MEDS ORDERED: LORazepam 2 MG/ML INJ IV STA (17:18)
[2018-03-04] MEDS ORDERED: ATORVASTATIN 40 MG TAB PO SCH (21:00)
[2018-03-05 06:25] LABS: Anisocytosis Moderate; Basophils % (A) 0 %; Eosinophils # (A) 0.3 k/uL (0-0.7); Eosinophils % (A) 4 %; HCT 25.3 % (34.0-46.0); HGB 8.1 gm/dL (11.4-16.0); Hypochromasia Marked; Lymphocytes # (A) 0.8 k/uL (1.0-4.8); Lymphocytes % (A) 14 %; MCH 31.8 pg (25.0-35.0); MCV 99.7 fL (80.0-100.0); Macrocytosis Moderate; Monocytes # (A) 0.2 k/uL (0-1.0); Monocytes % (A) 3 %; Neutrophils # (A) 4.7 k/uL (1.3-7.7); Neutrophils % (A) 77 %; Platelet Count 149 k/uL (150-450); Poikilocytosis Slight; RBC 2.54 m/uL (3.80-5.40); WBC 6.1 k/uL (3.8-10.6)
[2018-03-05 06:35] LABS: Anion Gap 3 mmol/L; Blood Urea Nitrogen 7 mg/dL (7-17); Calcium 7.9 mg/dL (8.4-10.2); Carbon Dioxide 24 mmol/L (22-30); Chloride 111 mmol/L (98-107); Glucose 83 mg/dL (74-99); Potassium 3.9 mmol/L (3.5-5.1); Sodium 138 mmol/L (137-145)
[2018-03-05] MEDS: DOCUSATE 100 MG CAP PO SCH ×2 (06:38→09:00)
[2018-03-05] MEDS: ASPIRIN 325 MG TAB PO SCH (09:00)
[2018-03-05] MEDS: FAMOTIDINE 20 MG/2 ML VIAL IV SCH (09:00)
[2018-03-05 09:08] VITALS: TEMP 98.2
[2018-03-05] MEDS ORDERED: LORazepam 1 MG TAB PO STA (11:14)
--- NOTE | 2018-03-05 12:21 | P.DS ---
Providers Date of admission: 03/03/18 17:47 Attending physician: Verito Ramirez Consults: 03/03/18 17:58 Consult Physician Routine Consulting Provider: Amita Chau Consult Reason/Comments: CVA Do you want consulting provider notified?: Yes 03/04/18 12:25 Consult Physician Routine Consulting Provider: Rico Knox Consult Reason/Comments: Eval for inpatient rehab Do you want consulting provider notified?: Yes Primary care physician: Mirella Burleson Hospital Course: Patient is admitted for weakness in the left side of the body involving and left facial droop. CAT scan showing posterior frontal lobe infarction acute to subacute right side patient is going for MRI today patient is in aspirin and statin patient is awaiting discharge to inpatient rehab rotation we're awaiting insurance authorization. Patient doesn't have any symptoms and improvement in her weakness compared to yesterday. Patient's carotid Doppler echocardiogram no significant abnormality. Patient was started on aspirin and a statin. Patient doesn't have any alcohol withdrawal at this time. PHYSICAL EXAMINATION: GENERAL: The patient is alert and oriented x3, not in any acute distress. Well developed, well nourished. HEENT: Pupils are round and equally reacting to light. EOMI. No scleral icterus. No conjunctival pallor. Normocephalic, atraumatic. No pharyngeal erythema. No thyromegaly. CARDIOVASCULAR: S1 and S2 present. No murmurs, rubs, or gallops. PULMONARY: Chest is clear to auscultation, no wheezing or crackles. ABDOMEN: Soft, nontender, nondistended, normoactive bowel sounds. No palpable organomegaly. MUSCULOSKELETAL: No joint swelling or deformity. EXTREMITIES: No cyanosis, clubbing, or pedal edema. NEUROLOGICAL: Patient has facial droop towards left 4/5 strength in left upper extremity, 4/5 strength in left lower extremity SKIN: No rashes. Assessment and Plan Plan: -Cerebral vascular accident: Probably ischemic stroke involving the right cerebral hemisphere middle cerebral artery territory in the area of motor cortex. Patient is going for MRI today as patient has hemiplegia which doesn't normally happen with cortical strokes, can happen with strokes in the area of coronary radiata or internal capsule. Patient was started on aspirin and a statin and patient is willing to be competent with her medications. -Nicotine abuse history in the past -Alcohol abuse: Counseling was provided -Chronic anemia we'll obtain ferritin levels probably secondary to chronic alcoholism. Plan - Discharge Summary Discharge Rx Participant: No New Discharge Prescriptions: New Aspirin 81 mg PO DAILY #30 chewable Atorvastatin [Lipitor] 40 mg PO HS #30 tab Folic Acid 1 mg PO DAILY@1200 tab Thiamine [Vitamin B-1] 100 mg PO BID@1200,1700 tab Discharge Medication List Aspirin 81 mg PO DAILY #30 chewable 03/05/18 [Rx] Atorvastatin [Lipitor] 40 mg PO HS #30 tab 03/05/18 [Rx] Folic Acid 1 mg PO DAILY@1200 tab 03/05/18 [Rx] Thiamine [Vitamin B-1] 100 mg PO BID@1200,1700 tab 03/05/18 [Rx] Follow up Appointment(s)/Referral(s): Sarah Beth Vu MD [Primary Care Provider] - 03/17/18 9:20 am (Thursday) [facility], [NON-STAFF] - Amita Chau MD [STAFF PHYSICIAN] - 4 Weeks (Spoke to hr receptionist. Office to call with appointment time.) Patient Instructions/Handouts: Stroke (DC) Discharge Disposition: DC/TRNS INTERMEDIATE CARE FAC
[2018-03-05] MEDS: FOLIC ACID 1 MG TAB PO SCH (12:38)
[2018-03-05] MEDS: MULTIVITAMINS, THERA 1 EACH TAB PO SCH (12:38)
--- NOTE | 2018-03-05 15:17 | MR ---
"EXAMINATION TYPE: MR brain wo con DATE OF EXAM: 03/05/2018 COMPARISON: 05/18/2017 CT brain HISTORY: Cerebrovascular accident. Altered mental status. TECHNIQUE: Multiplanar, multisequence images of the brain and brainstem is performed without intravenous contras t. FINDINGS: There is restricted diffusion and gyriform but includes both the dunham and white matter with in the precentral and post central gyrus involving the posterior right frontal lobe and parietal lobe as well as more ill-defined restricted diffusion within the watershed area of the right parietal-occ ipital region. Focal area of encephalomalacia within the left frontal valencia radiata demonstrates T2 shine through on diffusion weighted imaging compatible with surrounding gliosis from prior infarct. Other areas of nonspecific white matter change are scattered throughout the periventricular white mat ter and to a lesser degree within the subcortical white matter. A solitary pericallosal lesion measur es 1 cm within the left hemisphere. There is no extra-axial fluid collection or significant white matter signal abnormality. The ventric ular system and cisternal spaces are normal in size and appearance. The brain volume is age appropri ate. Midline structures demonstrate normal morphology. The craniocervical junction appears within normal limits. Major intracranial flow voids appear patent. The dural venous sinuses appear patent. The visu alized sinuses are clear and the globes are intact. IMPRESSION: 1. Acute infarct in the right frontal lobe, insular cortex, and parietal lobe involving the precentra l and postcentral gyrus as well as within the watershed zone on the right parietal-occipital region. 2. Encephalomalacia within the valencia radiata of the left frontal lobe with surrounding gliosis. 3. Additional areas of mild burden nonspecific white matter change. This could relate to sequela of m icroangiopathy and/or vasculitis given the additional infarcts, however demyelinating disease should also be considered as there is a pericallosal left hemispheric lesion in the distribution of typical demyelinating disease. A [place] level critical message alert has been initiated for Amita Chau MD~[id number] via the 1Ring | Critical Results System on 03/05/2018 3:15 PM. This message alert has been sent to Amita lama MD~[id number] via the preferences provided by the clinician for the receipt of Radiology Critical Findings. Message ID [id number]."
[2018-03-05 15:40] VITALS: BP 124/81; PULSE 100
== END 2018-03-05 16:15 | DRG 65 ==
LOC: 6SEL 17:47
PROVIDERS: ADMIT Internal Medicine; ATTEND Internal Medicine
DX: I63.9 Cerebral infarction, unspecified (principal); G81.94 Hemiplegia, unspecified affecting left nondominant side; R29.810 Facial weakness; R40.2363 Coma scale, best motor response, obeys commands, at hospital admission; R40.2143 Coma scale, eyes open, spontaneous, at hospital admission; R40.2253 Coma scale, best verbal response, oriented, at hospital admission; R29.703 NIHSS score 3; R48.2 Apraxia; I70.209 Unspecified atherosclerosis of native arteries of extremities, unspecified extremity; D63.8 Anemia in other chronic diseases classified elsewhere; F10.20 Alcohol dependence, uncomplicated; Z71.41 Alcohol abuse counseling and surveillance of alcoholic; Z87.891 Personal history of nicotine dependence; Z95.828 Presence of other vascular implants and grafts; Z90.11 Acquired absence of right breast and nipple; Z86.59 Personal history of other mental and behavioral disorders; Z86.19 Personal history of other infectious and parasitic diseases; Z90.710 Acquired absence of both cervix and uterus; Z98.51 Tubal ligation status; Z80.1 Family history of malignant neoplasm of trachea, bronchus and lung; Z80.8 Family history of malignant neoplasm of other organs or systems; Z82.3 Family history of stroke; Z80.0 Family history of malignant neoplasm of digestive organs; Z81.8 Family history of other mental and behavioral disorders; Z83.1 Family history of other infectious and parasitic diseases; Z82.0 Family history of epilepsy and other diseases of the nervous system; Z81.1 Family history of alcohol abuse and dependence
CPT/HCPCS: 70551; 80048; 80061; 82607; 82728; 82947; 83036; 83090; 83735; 84132; 84484; 85025; 93306; 93880; 95819

== ENCOUNTER 2018-08-12 00:09 | Emergency (ER) | payer OTHER ==
[2018-08-12 00:25] VITALS: PULSE 83
[2018-08-12] MEDS ORDERED: THIAMINE 100 MG/ML 2 ML VIAL IM STA (01:59)
[2018-08-12] MEDS ORDERED: SODIUM CHLORIDE 0.9% 1,000 ML IV STA (01:59)
--- NOTE | 2018-08-12 02:29 | CT ---
EXAMINATION TYPE: CT brain wo con DATE OF EXAM: 08/12/2018 COMPARISON: 05/18/2017 HISTORY: AMS CT DLP: 1074.4 mGycm Automated exposure control for dose reduction was used. FINDINGS: There is a 3 x 1 cm linear area of hypodensity in the left posterior frontal lobe consistent with enc ephalomalacia. There is a similar 4 x 2 cm hypodense area right parietal lobe consistent with encepha lomalacia and old infarct. There is no midline shift. There is no sign of intracranial hemorrhage. Th e calvarium is intact. There is cerebral cortical atrophy. There is irregular hypodense 2 cm area right posterior parietal lobe consistent with old infarct. IMPRESSION: OLD LEFT FRONTAL AND RIGHT PARIETAL CORTICAL INFARCTS. OLD RIGHT POSTERIOR PARIETAL SMALL CORTICAL IN FARCT. NO ACUTE INTRACRANIAL ABNORMALITY. THE INFARCTS HOWEVER ARE NEW COMPARED TO OLD EXAM.
[2018-08-12 03:11] LABS: Basophils % (A) 0 %; Eosinophils # (A) 0.2 k/uL (0-0.7); Eosinophils % (A) 2 %; HCT 38.6 % (34.0-46.0); HGB 12.3 gm/dL (11.4-16.0); Lymphocytes # (A) 1.5 k/uL (1.0-4.8); Lymphocytes % (A) 14 %; MCH 28.7 pg (25.0-35.0); MCHC 31.9 g/dL (31.0-37.0); MCV 90.1 fL (80.0-100.0); Monocytes # (A) 0.4 k/uL (0-1.0); Monocytes % (A) 3 %; Neutrophils # (A) 8.1 k/uL (1.3-7.7); Neutrophils % (A) 77 %; Platelet Count 258 k/uL (150-450); RBC 4.28 m/uL (3.80-5.40); RDW 14.2 % (11.5-15.5); WBC 10.5 k/uL (3.8-10.6)
[2018-08-12 03:37] LABS: ALT 23 U/L (9-52); AST 23 U/L (14-36); Alkaline Phosphatase 90 U/L (38-126); Anion Gap 12 mmol/L; Blood Urea Nitrogen 14 mg/dL (7-17); Carbon Dioxide 19 mmol/L (22-30); Chloride 102 mmol/L (98-107); Glucose 125 mg/dL (74-99); Magnesium 1.8 mg/dL (1.6-2.3); Sodium 133 mmol/L (137-145); Total Bilirubin 0.7 mg/dL (0.2-1.3)
[2018-08-12 03:51] LABS: Alcohol 177 mg/dL
--- NOTE | 2018-08-12 07:12 | ED ---
Alcohol HPI - General Chief Complaint: Alcohol Stated Complaint: ETOH Time Seen by Provider: 08/12/18 01:05 Source: patient, EMS Mode of arrival: EMS Limitations: altered mental status, physical limitation - History of Present Illness Initial Comments: This patient is 60-year-old woman who presents to be evaluated because she had a fall and then was not able to stand up after. The patient does report that she had gone for a few drinks, and then went home. She fell when she got there and then in attempting to get up she was not able to stand. The patient called EMS who brought her here to be evaluated. Further questioning reveals that the inability to stand does not appear to be a unilateral weakness. Patient states it definitely is a bilateral issue. She denies trauma in the fall. No head or neck pain. No chest, abdomen or back pain. 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 ROS Other: All systems not noted in ROS Statement are negative. Constitutional: Denies: fever, chills, weakness Respiratory: Denies: cough, dyspnea Cardiovascular: Denies: chest pain, palpitations, orthopnea, edema, syncope Gastrointestinal: Denies: abdominal pain, vomiting, diarrhea Genitourinary: Denies: dysuria, hematuria Musculoskeletal: Denies: back pain Neurological: Denies: headache, weakness, numbness, paresthesias Past Medical History Past Medical History: Vascular Disorder Additional Past Medical History / Comment(s): ENDOMETREOSIS, "BORN WITH 10% RETINA LT EYE"able to see some shadows/light, past shingles >3 years ago, rt breast abcess, anemia with transfusion 01/2018 History of Any Multi-Drug Resistant Organisms: None Reported Past Surgical History: Appendectomy, Bowel Resection, Hysterectomy, Tubal Ligation Additional Past Surgical History / Comment(s): "Stent bilat GROIN", BARTHOLIN CYST REMOVED, TOTAL HX AND 4" OF SMALL INTESTINE REMOVED D/T ENDOMETREOSIS" aorto bifemoral bypass January 2017 preeti rios..i&d rt breast acbess pt also had partial right mastectomy. Past Anesthesia/Blood Transfusion Reactions: No Reported Reaction Past Psychological History: Depression Smoking Status: Former smoker Past Alcohol Use History: Daily Past Drug Use History: None Reported - Past Family History Father Family Medical History: Cancer Additional Family Medical History / Comment(s): LUNG CANCER(SMOKED), BRAIN TUMOR REMOVED-HAD RADIATION [place] THEN HAD STROKE. Mother Family Medical History: Cancer, Dementia Additional Family Medical History / Comment(s): COLON AND SKIN CANCER. ALSO HAD TB Brother(s) Additional Family Medical History / Comment(s): 1 BROTHER HAS MS, ANOTHER BROTHER FROM COMPLICATIONS FROM ETOH/SCHIZOPHRENIA General Exam Limitations: altered mental status, physical limitation General appearance: alert, in no apparent distress Head exam: Present: atraumatic, normocephalic Eye exam: Present: normal appearance. Absent: scleral icterus, conjunctival injection ENT exam: Present: mucous membranes dry Neck exam: Present: normal inspection, full ROM. Absent: tenderness Respiratory exam: Present: normal lung sounds bilaterally. Absent: respiratory distress, wheezes, rales, rhonchi, stridor Cardiovascular Exam: Present: regular rate, normal rhythm, normal heart sounds. Absent: systolic murmur, diastolic murmur, rubs, gallop GI/Abdominal exam: Present: soft. Absent: distended, tenderness, guarding, rebound, rigid, mass Extremities exam: Present: normal inspection, normal capillary refill. Absent: pedal edema, calf tenderness Back exam: Absent: vertebral tenderness Neurological exam: Present: alert, CN II-XII intact, other (Moderate dysarthria and ataxia). Absent: motor sensory deficit Skin exam: Present: warm, dry, intact, normal color. Absent: rash Course Vital Signs 08/12/18 08/12/18 00:11 01:38 Temperature 98.7 F Pulse Rate 83 Respiratory 19 17 Rate Blood Pressure 145/88 O2 Sat by Pulse 97 Oximetry Medical Decision Making - Medical Decision Making Exam is consistent with acute alcohol intoxication. There is no focal weakness. The patient has workup that is unremarkable. No evidence of intracranial injury. - Lab Data Result diagrams: 08/12/18 02:50 08/12/18 02:50 Lab Results 08/12/18 08/12/18 Range/Units 02:50 02:50 WBC 10.5 (3.8-10.6) k/uL RBC 4.28 (3.80-5.40) m/uL Hgb 12.3 (11.4-16.0) gm/dL Hct 38.6 (34.0-46.0) % MCV 90.1 (80.0-100.0) fL MCH 28.7 (25.0-35.0) pg MCHC 31.9 (31.0-37.0) g/dL RDW 14.2 (11.5-15.5) % Plt Count 258 (150-450) k/uL Neutrophils % 77 % Lymphocytes % 14 % Monocytes % 3 % Eosinophils % 2 % Basophils % 0 % Neutrophils # 8.1 H (1.3-7.7) k/uL Lymphocytes # 1.5 (1.0-4.8) k/uL Monocytes # 0.4 (0-1.0) k/uL Eosinophils # 0.2 (0-0.7) k/uL Basophils # 0.0 (0-0.2) k/uL Sodium 133 L (137-145) mmol/L Potassium 4.0 (3.5-5.1) mmol/L Chloride 102 (98-107) mmol/L Carbon Dioxide 19 L (22-30) mmol/L Anion Gap 12 mmol/L BUN 14 (7-17) mg/dL Creatinine 0.70 (0.52-1.04) mg/dL Est GFR (CKD-EPI)AfAm >90 (>60 ml/min/1.73 sqM) Est GFR (CKD-EPI)NonAf >90 (>60 ml/min/1.73 sqM) Glucose 125 H (74-99) mg/dL Calcium 9.0 (8.4-10.2) mg/dL Magnesium 1.8 (1.6-2.3) mg/dL Total Bilirubin 0.7 (0.2-1.3) mg/dL AST 23 (14-36) U/L ALT 23 (9-52) U/L Alkaline Phosphatase 90 (38-126) U/L Total Protein 7.0 (6.3-8.2) g/dL Albumin 4.0 (3.5-5.0) g/dL Serum Alcohol 177 mg/dL Disposition Clinical Impression: Alcoholic intoxication Disposition: HOME SELF-CARE Condition: Good Instructions: Alcohol Intoxication (ED) Is patient prescribed a controlled substance at d/c from ED?: No Referrals: Sarah Beth Vu MD [Primary Care Provider] - 1-2 days
[2018-08-12 08:05] VITALS: BP 142/77; RESP 19; TEMP 98
== END 2018-08-12 08:05 | disposition home or self-care (01) ==
LOC: EC 00:09
DX: F10.129 Alcohol abuse with intoxication, unspecified (principal); D64.9 Anemia, unspecified; Z87.891 Personal history of nicotine dependence; Z79.899 Other long term (current) drug therapy
CPT/HCPCS: 82075; 36415; 80053; 83735; 85025; 70450; 99284; 96372; G0480; J3411; 80320

== ENCOUNTER 2020-02-28 15:41 | Inpatient (IN) | payer OTHER ==
[2020-02-28] MEDS ORDERED: ONDANSETRON 4 MG/2 ML VIAL IVP STA (16:56)
[2020-02-28] MEDS ORDERED: SODIUM CHLORIDE 0.9% 1,000 ML IV ONE (16:56)
[2020-02-28] MEDS ORDERED: KETOROLAC 30 MG/ML 1 ML VIAL IVP STA (17:24)
[2020-02-28] MEDS: SODIUM CHLORIDE 0.9% 1,000 ML IV SCH (17:25)
[2020-02-28 17:34] LABS: AST 28 U/L (14-36); African American GFR (CKD) 53 (>60 ml/min/1.73 sqM); Albumin 4.1 g/dL (3.5-5.0); Alkaline Phosphatase 91 U/L (38-126); Amylase <30 U/L (30-110); Anion Gap 14 mmol/L; Blood Urea Nitrogen 25 mg/dL (7-17); Calcium 9.2 mg/dL (8.4-10.2); Carbon Dioxide 17 mmol/L (22-30); Chloride 106 mmol/L (98-107); Glucose 114 mg/dL (74-99); Non-African American GFR(CKD) 46 (>60 ml/min/1.73 sqM); Potassium 3.9 mmol/L (3.5-5.1); Sodium 137 mmol/L (137-145); Total Bilirubin 1.1 mg/dL (0.2-1.3); Total Protein 7.3 g/dL (6.3-8.2)
[2020-02-28 17:41] LABS: ALT 19 U/L (4-34)
[2020-02-28 17:43] LABS: Anisocytosis Slight; Basophils % (A) 0 %; Eosinophils # (A) 0.1 k/uL (0-0.7); Eosinophils % (A) 1 %; HCT 38.9 % (34.0-46.0); HGB 12.7 gm/dL (11.4-16.0); Hypochromasia Slight; Lymphocytes # (A) 1.2 k/uL (1.0-4.8); Lymphocytes % (A) 14 %; MCH 33.9 pg (25.0-35.0); MCHC 32.7 g/dL (31.0-37.0); MCV 103.6 fL (80.0-100.0); Macrocytosis Marked; Mean Platelet Volume 7.4; Monocytes # (A) 0.5 k/uL (0-1.0); Monocytes % (A) 7 %; Neutrophils # (A) 6.3 k/uL (1.3-7.7); Neutrophils % (A) 77 %; Platelet Count 271 k/uL (150-450); RBC 3.75 m/uL (3.80-5.40); WBC 8.1 k/uL (3.8-10.6)
--- NOTE | 2020-02-28 17:58 | ED ---
Nausea/Vomiting/Diarrhea HPI - General Chief complaint: Nausea/Vomiting/Diarrhea Stated complaint: weakness, diarrhea Time Seen by Provider: 02/28/20 16:44 Source: patient, EMS, RN notes reviewed, old records reviewed Mode of arrival: EMS Limitations: no limitations - History of Present Illness Initial comments: There is a 64-year-old female process returns to 3 days of watery diarrhea. She complains of abdominal cramping. She states that she is not taking any medication to help stop the diarrhea at this time. She denies any chest pain shortness of breath. Patient reports that the diarrhea is not bloody. Patient states she feels is generally weak and tired. She reports that she's had history of aortic bypass and history of multiple abdominal surgeries. She reports no fevers with this. Denies any recent antibiotic use. She denies change in urination. - Related Data Home Medications Medication Instructions Recorded Confirmed No Known Home Medications 02/28/20 02/28/20 Allergies Allergy/AdvReac Type Severity Reaction Status Date / Time No Known Allergies Allergy Verified 02/28/20 19:42 Review of Systems ROS Statement: Those systems with pertinent positive or pertinent negative responses have been documented in the HPI. ROS Other: All systems not noted in ROS Statement are negative. Past Medical History Past Medical History: CVA/TIA, Vascular Disorder Additional Past Medical History / Comment(s): ENDOMETREOSIS, "BORN WITH 10% RETINA LT EYE"able to see some shadows/light, past shingles >3 years ago, rt breast abcess, anemia with transfusion 01/2018 History of Any Multi-Drug Resistant Organisms: None Reported Past Surgical History: Appendectomy, Bowel Resection, Hysterectomy, Tubal Ligation Additional Past Surgical History / Comment(s): "Stent bilat GROIN", BARTHOLIN CYST REMOVED, TOTAL HX AND 4" OF SMALL INTESTINE REMOVED D/T ENDOMETREOSIS" aorto bifemoral bypass January 2017 preeti rios..i&d rt breast acbess pt also had partial right mastectomy. Past Anesthesia/Blood Transfusion Reactions: No Reported Reaction Smoking Status: Former smoker Past Alcohol Use History: Daily Past Drug Use History: None Reported - Past Family History Father Family Medical History: Cancer Additional Family Medical History / Comment(s): LUNG CANCER(SMOKED), BRAIN TUMOR REMOVED-HAD RADIATION [place] THEN HAD STROKE. Mother Family Medical History: Cancer, Dementia Additional Family Medical History / Comment(s): COLON AND SKIN CANCER. ALSO HAD TB Brother(s) Additional Family Medical History / Comment(s): 1 BROTHER HAS MS, ANOTHER BROTHER FROM COMPLICATIONS FROM ETOH/SCHIZOPHRENIA General Exam - General Exam Comments Initial Comments: 64-year-old female. Alert and oriented 3. Limitations: no limitations General appearance: alert, in no apparent distress Head exam: Present: atraumatic, normocephalic, normal inspection Eye exam: Present: normal appearance, PERRL, EOMI. Absent: scleral icterus, conjunctival injection, periorbital swelling ENT exam: Present: normal exam, mucous membranes moist Neck exam: Present: normal inspection. Absent: tenderness, meningismus, lymphadenopathy Respiratory exam: Present: normal lung sounds bilaterally. Absent: respiratory distress, wheezes, rales, rhonchi, stridor Cardiovascular Exam: Present: regular rate, normal rhythm, normal heart sounds. Absent: systolic murmur, diastolic murmur, rubs, gallop, clicks GI/Abdominal exam: Present: soft, normal bowel sounds. Absent: distended, tenderness, guarding, rebound, rigid Extremities exam: Present: normal inspection, full ROM, normal capillary refill. Absent: tenderness, pedal edema, joint swelling, calf tenderness Back exam: Present: normal inspection Neurological exam: Present: alert, oriented X3, CN II-XII intact Psychiatric exam: Present: normal affect, normal mood Skin exam: Present: warm, dry, intact, normal color. Absent: rash Course Vital Signs 02/28/20 02/28/20 02/28/20 15:57 16:02 17:02 Temperature 97.9 F Pulse Rate 109 H Respiratory 18 18 18 Rate Blood Pressure 140/97 O2 Sat by Pulse 97 Oximetry 02/28/20 02/28/20 18:00 19:00 Temperature Pulse Rate 100 Respiratory 18 18 Rate Blood Pressure 132/96 O2 Sat by Pulse 96 Oximetry Medical Decision Making - Medical Decision Making 64-year-old female presented spurs or diarrhea. She isn't having symptoms for 3 days and feels generally weak. She is given IV fluids labwork obtained. Abdomen soft and nontender. She's had multiple episodes of diarrhea in emergency department. Clear watery. Patient C. diff testing is pending at this time. She's not been on recent antibiotics. Again Patient has no focal abdominal tenderness. Patient labs show dehydration. She is given IV fluids. Discussed the case with Dr. RIVERA. The discussed the case with Jyotsna Farley NP who accepts admission for [facility]. - Lab Data Result diagrams: 02/28/20 16:47 02/28/20 16:47 Lab Results 02/28/20 02/28/20 02/28/20 Range/Units 16:47 16:47 18:00 WBC 8.1 (3.8-10.6) k/uL RBC 3.75 L (3.80-5.40) m/uL Hgb 12.7 (11.4-16.0) gm/dL Hct 38.9 (34.0-46.0) % MCV 103.6 H (80.0-100.0) fL MCH 33.9 (25.0-35.0) pg MCHC 32.7 (31.0-37.0) g/dL RDW 20.0 H (11.5-15.5) % Plt Count 271 (150-450) k/uL Neutrophils % 77 % Lymphocytes % 14 % Monocytes % 7 % Eosinophils % 1 % Basophils % 0 % Neutrophils # 6.3 (1.3-7.7) k/uL Lymphocytes # 1.2 (1.0-4.8) k/uL Monocytes # 0.5 (0-1.0) k/uL Eosinophils # 0.1 (0-0.7) k/uL Basophils # 0.0 (0-0.2) k/uL Manual Slide Review Performed Hypochromasia Slight Anisocytosis Slight Macrocytosis Marked A Sodium 137 (137-145) mmol/L Potassium 3.9 (3.5-5.1) mmol/L Chloride 106 (98-107) mmol/L Carbon Dioxide 17 L (22-30) mmol/L Anion Gap 14 mmol/L BUN 25 H (7-17) mg/dL Creatinine 1.25 H (0.52-1.04) mg/dL Est GFR (CKD-EPI)AfAm 53 (>60 ml/min/1.73 sqM) Est GFR (CKD-EPI)NonAf 46 (>60 ml/min/1.73 sqM) Glucose 114 H (74-99) mg/dL Calcium 9.2 (8.4-10.2) mg/dL Total Bilirubin 1.1 (0.2-1.3) mg/dL AST 28 (14-36) U/L ALT 19 (4-34) U/L Alkaline Phosphatase 91 (38-126) U/L Total Protein 7.3 (6.3-8.2) g/dL Albumin 4.1 (3.5-5.0) g/dL Amylase <30 L (30-110) U/L Lipase 123 (23-300) U/L Urine Color Yellow Urine Appearance Cloudy H (Clear) Urine pH 6.0 (5.0-8.0) Ur Specific [place] 1.019 (1.001-1.035) Urine Protein 1+ H (Negative) Urine Glucose (UA) Negative (Negative) Urine Ketones 1+ H (Negative) Urine Blood Small H (Negative) Urine Nitrite Positive H (Negative) Urine Bilirubin Negative (Negative) Urine Urobilinogen <2.0 (<2.0) mg/dL Ur Leukocyte Esterase Large H (Negative) Urine RBC 31 H (0-5) /hpf Urine WBC 36 H (0-5) /hpf Ur Squamous Epith Cells <1 (0-4) /hpf Urine Bacteria Many H (None) /hpf Hyaline Casts 3 H (0-2) /lpf Urine Mucus Few H (None) /hpf Stool Occult Blood (Negative) 02/28/20 Range/Units 18:00 WBC (3.8-10.6) k/uL RBC (3.80-5.40) m/uL Hgb (11.4-16.0) gm/dL Hct (34.0-46.0) % MCV (80.0-100.0) fL MCH (25.0-35.0) pg MCHC (31.0-37.0) g/dL RDW (11.5-15.5) % Plt Count (150-450) k/uL Neutrophils % % Lymphocytes % % Monocytes % % Eosinophils % % Basophils % % Neutrophils # (1.3-7.7) k/uL Lymphocytes # (1.0-4.8) k/uL Monocytes # (0-1.0) k/uL Eosinophils # (0-0.7) k/uL Basophils # (0-0.2) k/uL Manual Slide Review Hypochromasia Anisocytosis Macrocytosis Sodium (137-145) mmol/L Potassium (3.5-5.1) mmol/L Chloride (98-107) mmol/L Carbon Dioxide (22-30) mmol/L Anion Gap mmol/L BUN (7-17) mg/dL Creatinine (0.52-1.04) mg/dL Est GFR (CKD-EPI)AfAm (>60 ml/min/1.73 sqM) Est GFR (CKD-EPI)NonAf (>60 ml/min/1.73 sqM) Glucose (74-99) mg/dL Calcium (8.4-10.2) mg/dL Total Bilirubin (0.2-1.3) mg/dL AST (14-36) U/L ALT (4-34) U/L Alkaline Phosphatase (38-126) U/L Total Protein (6.3-8.2) g/dL Albumin (3.5-5.0) g/dL Amylase (30-110) U/L Lipase (23-300) U/L Urine Color Urine Appearance (Clear) Urine pH (5.0-8.0) Ur Specific [place] (1.001-1.035) Urine Protein (Negative) Urine Glucose (UA) (Negative) Urine Ketones (Negative) Urine Blood (Negative) Urine Nitrite (Negative) Urine Bilirubin (Negative) Urine Urobilinogen (<2.0) mg/dL Ur Leukocyte Esterase (Negative) Urine RBC (0-5) /hpf Urine WBC (0-5) /hpf Ur Squamous Epith Cells (0-4) /hpf Urine Bacteria (None) /hpf Hyaline Casts (0-2) /lpf Urine Mucus (None) /hpf Stool Occult Blood Negative (Negative) - Radiology Data Radiology results: report reviewed KB she is not instructed bowel gas pattern. Disposition Clinical Impression: Diarrhea, Dehydration, UTI (urinary tract infection), Weakness Disposition: ADMITTED IP TO THIS HOSP Condition: Stable Is patient prescribed a controlled substance at d/c from ED?: No Referrals: Sarah Beth Vu MD [Primary Care Provider] - 1-2 days Time of Disposition: 19:48
--- NOTE | 2020-02-28 19:00 | XR ---
EXAMINATION TYPE: XR KUB DATE OF EXAM: 02/28/2020 5:49 PM CLINICAL HISTORY: Weakness, abdominal pain, diarrhea. TECHNIQUE: Supine images of the abdomen and pelvis were obtained COMPARISON: Abdominal radiograph 12/05/2015. FINDINGS: Scattered gas is seen in non-distended small bowel loops. Gas and fecal material is seen in non-distended colon. There is no visceromegaly, pneumoperitoneum, or abnormal calcification apprecia marisa. The lung bases are clear. The osseous structures are intact. Degenerative changes of the hips. IMPRESSION: Nonobstructive bowel gas pattern.
[2020-02-28 19:16] LABS: Appearance,Urine Cloudy (Clear); Bacteria,Urine Many /hpf; Bilirubin,Urine Negative (Negative); Blood,Urine Small (Negative); Color,Urine Yellow; Glucose,Urine (UA) Negative (Negative); Hyaline Casts,Urine 3 /lpf (0-2); Ketones,Urine 1+ (Negative); Leukocyte Esterase,Urine Large (Negative); Mucus,Urine Few /hpf; Nitrite,Urine Positive (Negative); Protein,Urine 1+ (Negative); RBC,Urine 31 /hpf (0-5); Specific Gravity,Urine 1.019 (1.001-1.035); Squamous Epithelial Cell,Urine <1 /hpf (0-4); Urobilinogen,Urine <2.0 mg/dL (<2.0); WBC,Urine 36 /hpf (0-5)
[2020-02-28] MEDS ORDERED: cefTRIAXone IN SWFI 1,000 MG/10 ML SYRINGE IVP STA (19:40)
[2020-02-28] MEDS ORDERED: LOPERAMIDE 2 MG CAP PO ONE (19:50)
[2020-02-28] MEDS ORDERED: IBUPROFEN 400 MG TAB PO PRN (19:50)
[2020-02-28] MEDS ORDERED: NALOXONE 0.4 MG/ML 1 ML VIAL IV PRN (19:50)
[2020-02-28] MEDS ORDERED: ACETAMINOPHEN TAB 325 MG TAB PO PRN (19:50)
[2020-02-28] MEDS ORDERED: KETOROLAC 30 MG/ML 1 ML VIAL IVP PRN (19:50)
[2020-02-28] MEDS ORDERED: MORPHINE SULFATE 4 MG/ML SYRINGE IV PRN (19:50)
[2020-02-29] MEDS: LOPERAMIDE 2 MG CAP PO PRN ×2 (01:06→09:26)
[2020-02-29] MEDS: SODIUM CHLORIDE 0.9% 1,000 ML IV SCH ×2 (02:17→09:26)
--- NOTE | 2020-02-29 23:14 | P.HPIM ---
History of Present Illness H&P Date: 02/29/20 Chief Complaint: Diarrhea Patient is 64-year-old female with a known history of CVA/TIA with some left residual weakness, history of abdominal aortic bypass surgery, previous history of smoking, daily alcohol use, history of endometriosis came to ER with complaints of diarrhea for the past 3 days. Diarrhea is mainly watery. Denied any dark-colored stool or hematemesis. Denied any nausea or vomiting. Patient also denied any recent antibiotic use. Patient also having generalized weakness and tiredness. Patient otherwise denied any chest pain or shortness of breath. No fever no chills. No cough or sputum production. KUB x-ray showed non-obstructive bowel gas pattern. Laboratory data WBC 8.1, hemoglobin 12.7, MCV 103 point 0.6 and RDW 20.0 BUN 25 and creatinine 1.25 Urinalysis showed cloudy with nitrite positive and large leukocyte esterase and RBCs 31 and WBC 36 squamous epithelial cells less than 1 C. difficile is negative FOBT negative Patient was afebrile on admission. Review of Systems Constitutional: Patient denies any fever or chills . generalized weakness and fatigue. Abdomen:patient does have nausea. Vomiting.Positivediarrhea.Noabdominalpain.. Cardiovascular: Patient denies any chest pain or short of breath no palpitations. Respiratory: patient denied any cough is from production. No shortness of breath Neurologic: Patient denied any numbness or tingling headache. Musculoskeletal: Patient denies any complaints of joint swelling or deformity. Skin: Negative Psychiatric: Negative Endocrine: No heat or cold intolerance. No recent weight gain. Genitourinary: No dysuria or hematuria. All other 14 point ROS negative except the above Past Medical History Past Medical History: CVA/TIA, Vascular Disorder Additional Past Medical History / Comment(s): ENDOMETREOSIS, "BORN WITH 10% RETINA LT EYE"able to see some shadows/light, past shingles >3 years ago, rt breast abcess, anemia with transfusion 01/2018 History of Any Multi-Drug Resistant Organisms: None Reported Past Surgical History: Appendectomy, Bowel Resection, Hysterectomy, Tubal Ligation Additional Past Surgical History / Comment(s): "Stent bilat GROIN", BARTHOLIN CYST REMOVED, TOTAL HX AND 4" OF SMALL INTESTINE REMOVED D/T ENDOMETREOSIS" aorto bifemoral bypass January 2017 preeti heck.i&d rt breast acbess pt also had partial right mastectomy. Past Anesthesia/Blood Transfusion Reactions: No Reported Reaction Past Psychological History: Depression Additional Psychological History / Comment(s): Single and lives independently, has walker and toilet riser. He has a female friend who is helping her with her shopping and some other activities. 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 No experience. No extensive travel. No animal exposures. Stop tobacco use in 2011. Denies alcohol use or recreational drug use Smoking Status: Former smoker Past Alcohol Use History: Daily Additional Past Alcohol Use History / Comment(s): HISTORY OF 1 TO 1.5 PINTS OF SCHNAPPS A DAY NOW OCC. STARTED SMOKING AT AGE 16(1971), SMOKED 1 PPD, QUIT 2011 Past Drug Use History: None Reported - Past Family History Father Family Medical History: Cancer Additional Family Medical History / Comment(s): LUNG CANCER(SMOKED), BRAIN TUMOR REMOVED-HAD RADIATION [place] THEN HAD STROKE. Mother Family Medical History: Cancer, Dementia Additional Family Medical History / Comment(s): COLON AND SKIN CANCER. ALSO HAD TB Brother(s) Additional Family Medical History / Comment(s): 1 BROTHER HAS MS, ANOTHER BROTHER FROM COMPLICATIONS FROM ETOH/SCHIZOPHRENIA Medications and Allergies Home Medications Medication Instructions Recorded Confirmed Type No Known Home Medications 02/28/20 02/28/20 History Allergies Allergy/AdvReac Type Severity Reaction Status Date / Time No Known Allergies Allergy Verified 02/28/20 19:42 Physical Exam Vitals: Vital Signs Temp Pulse Pulse Pulse Resp BP BP 02/29/20 09:15 97.7 F 75 16 121/69 02/29/20 02:42 97.6 F 71 18 129/78 02/28/20 21:00 97.6 F 86 18 129/82 02/28/20 20:38 97.6 F 84 18 141/83 02/28/20 19:00 100 18 132/96 02/28/20 18:00 18 02/28/20 17:02 18 02/28/20 16:02 18 02/28/20 15:57 97.9 F 109 H 18 140/97 Pulse Ox 02/29/20 09:15 95 02/29/20 02:42 97 02/28/20 21:00 98 02/28/20 20:38 98 02/28/20 19:00 96 02/28/20 18:00 02/28/20 17:02 02/28/20 16:02 02/28/20 15:57 97 Intake and Output 02/28/20 02/29/20 02/29/20 22:59 06:59 14:59 Intake Total 400 100 Balance 400 100 Intake: Intake, IV Titration 200 100 Amount Sodium Chloride 0.9% 1, 200 100 000 ml @ 100 mls/hr IV . Q10H [facility] Rx#:[id number] Oral 200 Other: Voiding Method Bedpan Bedpan Bedpan # Voids 1 1 # Bowel Movements 6 Weight 83.915 kg PHYSICAL EXAMINATION: Patient is lying in the bed comfortably, no acute distress, awake alert and oriented.. HEENT: Normocephalic. Neck is supple. Pupils reactive. Nostrils clear. Oral cavity is moist. Ears reveal no drainage. Neck reveals no JVD, carotid bruits, or thyromegaly. CHEST EXAMINATION: Trachea is central. Symmetrical expansion. Lung munroe clear to auscultation and percussion. CARDIAC: Normal S1, S2 with no gallops. No murmurs ABDOMEN: Soft. Bowel sounds normal. No organomegaly. No abdominal bruits. Extremities: reveal no edema. No clubbing or cyanosis Neurologically awake, alert, oriented x3 with well-coordinated movements. No focal deficits noted Skin: No rash or skin lesions. Psychiatric: Coperative. Nonsuicidal Musculoskeletal: No joint swelling or deformity. Normal range of motion. Results CBC & Chem 7: 03/01/20 05:56 03/01/20 05:56 Labs: Abnormal Lab Results - Last 24 Hours (Table) 02/28/20 02/28/20 02/28/20 Range/Units 16:47 16:47 18:00 RBC 3.75 L (3.80-5.40) m/uL MCV 103.6 H (80.0-100.0) fL RDW 20.0 H (11.5-15.5) % Macrocytosis Marked A Carbon Dioxide 17 L (22-30) mmol/L BUN 25 H (7-17) mg/dL Creatinine 1.25 H (0.52-1.04) mg/dL Glucose 114 H (74-99) mg/dL Amylase <30 L (30-110) U/L Urine Appearance Cloudy H (Clear) Urine Protein 1+ H (Negative) Urine Ketones 1+ H (Negative) Urine Blood Small H (Negative) Urine Nitrite Positive H (Negative) Ur Leukocyte Esterase Large H (Negative) Urine RBC 31 H (0-5) /hpf Urine WBC 36 H (0-5) /hpf Urine Bacteria Many H (None) /hpf Hyaline Casts 3 H (0-2) /lpf Urine Mucus Few H (None) /hpf Microbiology - Last 24 Hours (Table) 02/28/20 18:35 Stool Culture - Preliminary Stool Thrombosis Risk Factor Assmnt - DVT/VTE Prophylaxis DVT/VTE Prophylaxis: Pharmacologic Prophylaxis ordered - Choose All That Apply Any of the Below Risk Factors Present?: Yes Each Factor Represents 1 point: Obesity (BMI >25) Other Risk Factors: Yes Each Risk Factor Represents 2 Points: Age 61-74 years Each Risk Factor Represents 3 Points: History of DVT/PE Thrombosis Risk Factor Assessment Total Risk Factor Score: 6 Thrombosis Risk Factor Assessment Level: High Risk Assessment and Plan Assessment: Acute diarrhea. Ruled out C. difficile infection Acute urinary tract infection Acute kidney injury likely prerenal Generalized weakness and tiredness due to all above History of CVA/TIA with some left residual weakness History of abdominal aortic bypass surgery Daily alcohol use Obesity with BMI 33.8 DVT prophylaxis heparin subcu Plan: Patient will be continued on IV hydration with normal saline. Continue with antibiotics in the form of ceftriaxone and follow-up urine culture report. Monitor renal function. Follow-up CBC and BMP tomorrow. Encourage ambulation. Further recommendations based on the clinical course. Time with Patient: Greater than 30
[2020-03-01 06:17] LABS: Anisocytosis Slight; Basophils % (A) 1 %; Eosinophils # (A) 0.1 k/uL (0-0.7); Eosinophils % (A) 2 %; HCT 30.2 % (34.0-46.0); Hypochromasia Marked; Lymphocytes % (A) 21 %; MCH 32.4 pg (25.0-35.0); MCHC 30.8 g/dL (31.0-37.0); MCV 105.1 fL (80.0-100.0); Macrocytosis Marked; Mean Platelet Volume 7.2; Monocytes # (A) 0.3 k/uL (0-1.0); Monocytes % (A) 6 %; Neutrophils # (A) 3.2 k/uL (1.3-7.7); Neutrophils % (A) 69 %; Platelet Count 190 k/uL (150-450); RBC 2.88 m/uL (3.80-5.40); RDW 19.9 % (11.5-15.5); WBC 4.7 k/uL (3.8-10.6)
[2020-03-01 06:34] LABS: Calcium 7.5 mg/dL (8.4-10.2)
[2020-03-01 06:42] LABS: HGB 9.3 gm/dL (11.4-16.0)
[2020-03-01] MEDS: SODIUM CHLORIDE 0.9% 1,000 ML IV SCH ×4 (07:54→16:32)
--- NOTE | 2020-03-01 13:15 | P.CN ---
Psychiatric Consult - . Consult date: 03/01/20 Consult:: IDENTIFYING DATA: She is a 64-year-old female who [facility] of [facility] and vomiting. The hospitalist consult to psychiatry for evaluation of depression. HISTORY OF PRESENT ILLNESS: I reviewed the medical record and interviewed the patient. She complained of feeling increasingly lonely and depressed since October, the beginning of the pandemic. As a result of the stay home order she was unable to frequent a local casino where she would socialize with other or women 3 to 4 times per week. She is concerned that even after the casino reopens she would not be able to go there because she is unable to walk without a walker and is unable to drive. She complained of increasing difficulty with walking and caring for herself. She has a friend assist her with shopping. She does not cook and orders out "every day". She also complained about the loss of her mother and express unresolved guilt surrounding her mother's . She presented herself as a primary gin feeder when her mother developed dementia. Apparently, her mother was too paranoid to give either her or her brother a lambert to the house. When she was unable to reach her mother on the telephone she called the local police to break into the house where she found her mother unresponsive on the floor. She described feelings of hopelessness and helplessness relating to her increasing physical disability, isolation and loneliness but she denied feeling worthless. She admitted to some but not all symptoms of major depressive disorder. For example, she denied having difficulties with sleep, appetite or having thoughts of or suicide. She described decrease in energy, decreased interest and past activities and persistent guilt. She denied experiencing psychotic symptoms (auditory, visual or olfactory hallucinations, ideas reference etc.). She denied experiencing periods of elevated mood or sustained irritability suggestive of albin or hypomania. She denied experiencin g persistent uncontrolled anxiety. She has a history of alcohol use problems with 2 DUIs approximately 30 years ago. She drinks on the average 1-2 pints of schnapps per week. She has tried cutting down her drinking and stated that she can go "a week or 2" without having a drink. She denied that friends or family complained to her about her drinking or her needing to have a drink in the morning to treat withdrawal symptoms. She denied use of other drugs to get high, help her sleep or change her mood. PAST PSYCHIATRIC HISTORY: She denied a history of mental health treatment or psychiatric hospitalizations. She denied treatment with antidepressant or antianxiety medications. PAST MEDICAL HISTORY: She has multiple medical problems as described in the medical history and physical exam. ALLERGIES: No known ALLERGIES SUBSTANCE USE HISTORY: She is never participated in a substance abuse treatment program. She has attended Alcoholics Anonymous in the past. FAMILY PSYCHIATRIC/SUBSTANCE USE HISTORY: Her brother had history of schizophrenia and alcohol use disorder. SOCIAL HISTORY: She is born and raised in intact family. She 2 brothers. The brother with a history of schizophrenia is . She described from high school. She is and twice. She has no children. 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 She made eye contact and attended to the interview. She had no distinguishing features or prominent physical abnormalities. She had a distressed facial expression and cried intermittently during the interview. She is alert and oriented to person, place and time. She showed psychomotor retardation but no abnormal involuntary movements. His speech was spontaneous with normal rate, rhythm and volume. Affect was depressed but reactive. She denied suicidal ideation and wishes. She denied homicidal ideation. She is pressed feelings of hopelessness and helplessness. She ruminated about her medical problems, physical disability, her loneliness and guilt regarding the of her mother. She did not express ideas reference, paranoid ideation or delusions. Her thinking was concrete but her associations were coherent, logical and goal directed. She denied hallucinations didn't appear to be responding to internal stimuli. Completed the [facility] Memory and Concentration test. Her total bili 0 score was 11; total weighted error score greater than 10 is consistent with a dementia. She knew the year and month. She was able to register memory phrase "Edison Epstein, [address] [place] [id number]". She estimated time correctly within 1 hour of the actual time. She is able count backwards from 20. She made one error in naming the months of the year in reverse order. She remembered 3 elements of memory phrase. IMPRESSIONS: She is a 64-year-old female who presented to [facility] with nausea and vomiting. Medicine consulted psychiatry regarding depression. She describes a feelings depression, guilt and loneliness that have become progressively worse due to the isolation and the stay at home order, her increasing physical disability and Greg social support. She acknowledged many but not all the symptoms of a major depressive disorder. There is no evidence of psychosis or history of albin or hypomania. She has a history of alcohol use and appears that her alcohol use fluctuates and may at times become uncontrolled. She does not require inpatient psychiatric treatment but would benefit from outpatient mental health services. We discussed outpatient individual therapy. She expressed an interest but complained that she is unable to drive and has no other means of transportation. DIAGNOSIS: Major depressive disorder moderate, alcohol use disorder mild, Rule out neurocognitive disorder. RECOMMENDATION: Consult social work regarding referrals for outpatient mental health services. Begin a trial of an SSRI antidepressant such as Prozac, Zoloft, Celexa, Lexapro. A reasonable initial treatment could be Zoloft 50 mg per day with titration to 100 250 mg daily. Her primary care provider should monitor cognitive status was serial Mini-Mental Status Exams. 03/01/20 12:49
[2020-03-01] MEDS ORDERED: POTASSIUM CHLORIDE ER 20 MEQ TAB.ER PO STA ×2 (15:32→22:25)
[2020-03-01 17:22] LABS: % Iron Saturation 43.68 (12.00-45.00)
[2020-03-01] MEDS ORDERED: SERTRALINE 50 MG TAB PO SCH (22:45)
--- NOTE | 2020-03-01 22:56 | P.PN ---
Subjective Progress Note Date: 03/01/20 Principal diagnosis: Acute Diarrhea UTI Patient is 64-year-old female with a known history of CVA/TIA with some left residual weakness, history of abdominal aortic bypass surgery, previous history of smoking, daily alcohol use, history of endometriosis came to ER with complaints of diarrhea for the past 3 days. Diarrhea is mainly watery. Denied any dark-colored stool or hematemesis. Denied any nausea or vomiting. Patient also denied any recent antibiotic use. Patient also having generalized weakness and tiredness. Patient otherwise denied any chest pain or shortness of breath. No fever no chills. No cough or sputum production. KUB x-ray showed non-obstructive bowel gas pattern. Laboratory data WBC 8.1, hemoglobin 12.7, MCV 103 point 0.6 and RDW 20.0 BUN 25 and creatinine 1.25 Urinalysis showed cloudy with nitrite positive and large leukocyte esterase and RBCs 31 and WBC 36 squamous epithelial cells less than 1 C. difficile is negative FOBT negative Patient was afebrile on admission. 03/01/2020 Patient is currently lying in the bed comfortably. Denied any complaints of abdominal pain. No nausea no vomiting. Patient is tolerating oral diet. Patient did not have any further diarrhea. No bowel movement today. No complaints of chest pain or shortness of breath. Patient states that she still feels weak.Denied any hematemesis or melena. Patient was seen by psychiatry due to depression and was currently started on Zoloft 10 mg at bedtime. Follow-up with [facility] as an outpatient. Laboratory data showed WBC 4.7, hemoglobin dropped down to 9.3 and platelets 190 Potassium 3.0 Bicarb is 14 and calcium 7.5 B12 level is 279 Urine culture report is pending Current medications reviewed. Objective - Vital Signs Vital signs: Vital Signs Temp 98.2 F 03/01/20 20:43 Pulse 65 03/01/20 20:43 Resp 17 03/01/20 20:43 BP 119/65 03/01/20 20:43 Pulse Ox 98 03/01/20 20:43 Intake & Output 03/01/20 03/01/20 03/02/20 06:59 18:59 06:59 Intake Total 676 Balance 676 Intake: Oral 476 Other 200 Other: Voiding Method Bedside Commode # Voids 1 1 - Exam PHYSICAL EXAMINATION: Patient is lying in the bed comfortably, no acute distress, awake alert and oriented.. HEENT: Normocephalic. Neck is supple. Pupils reactive. Nostrils clear. Oral cavity is moist. Ears reveal no drainage. Neck reveals no JVD, carotid bruits, or thyromegaly. CHEST EXAMINATION: Trachea is central. Symmetrical expansion. Lung munroe clear to auscultation and percussion. CARDIAC: Normal S1, S2 with no gallops. No murmurs ABDOMEN: Soft. Bowel sounds normal. No organomegaly. No abdominal bruits. Extremities: reveal no edema. No clubbing or cyanosis Neurologically awake, alert, oriented x3 with well-coordinated movements. No focal deficits noted Skin: No rash or skin lesions. Psychiatric: Coperative. Nonsuicidal Musculoskeletal: No joint swelling or deformity. Normal range of motion. - Labs CBC & Chem 7: 03/01/20 05:56 03/01/20 05:56 Labs: Abnormal Lab Results - Last 24 Hours (Table) 03/01/20 03/01/20 03/01/20 Range/Units 05:56 05:56 05:56 RBC 2.88 L (3.80-5.40) m/uL Hgb 9.3 L D (11.4-16.0) gm/dL Hct 30.2 L (34.0-46.0) % MCV 105.1 H (80.0-100.0) fL MCHC 30.8 L (31.0-37.0) g/dL RDW 19.9 H (11.5-15.5) % Macrocytosis Marked A Potassium 3.0 L (3.5-5.1) mmol/L Chloride 118 H (98-107) mmol/L Carbon Dioxide 14 L (22-30) mmol/L Calcium 7.5 L (8.4-10.2) mg/dL TIBC 190 L (228-460) ug/dL Microbiology - Last 24 Hours (Table) 02/29/20 17:50 Urine Culture - Final Urine,Voided 02/28/20 20:28 Blood Culture - Preliminary Blood No Growth after 24 hours Assessment and Plan Assessment: Acute diarrhea. Ruled out C. difficile infection. improved. Acute urinary tract infection Acute kidney injury likely prerenal Severe hypokalemia Major depression Generalized weakness and tiredness due to all above History of CVA/TIA with some left residual weakness History of abdominal aortic bypass surgery Daily alcohol use Obesity with BMI 33.8 DVT prophylaxis heparin subcu Plan: Patient will be continued on IV hydration with normal saline. Continue with antibiotics in the form of ceftriaxone and follow-up urine culture report. Monitor renal function. Follow-up CBC and BMP tomorrow. Encourage ambulation. Further recommendations based on the clinical course. Time with Patient: Greater than 30
[2020-03-02] MEDS: PANTOPRAZOLE 40 MG/10 ML VIAL IVP SCH ×2 (01:48→09:44)
[2020-03-02 06:21] LABS: Anisocytosis Moderate; Basophils # (A) 0.1 k/uL (0-0.2); Basophils % (A) 1 %; Eosinophils # (A) 0.2 k/uL (0-0.7); Eosinophils % (A) 3 %; HCT 29.4 % (34.0-46.0); HGB 9.1 gm/dL (11.4-16.0); Hypochromasia Moderate; Lymphocytes # (A) 1.2 k/uL (1.0-4.8); Lymphocytes % (A) 22 %; MCHC 30.9 g/dL (31.0-37.0); Macrocytosis Marked; Mean Platelet Volume 7.9; Monocytes # (A) 0.4 k/uL (0-1.0); Monocytes % (A) 6 %; Neutrophils # (A) 3.7 k/uL (1.3-7.7); Neutrophils % (A) 66 %; Platelet Count 189 k/uL (150-450); RBC 2.84 m/uL (3.80-5.40); RDW 20.4 % (11.5-15.5); WBC 5.5 k/uL (3.8-10.6)
[2020-03-02 06:27] LABS: MCV 103.5 fL (80.0-100.0)
[2020-03-02 06:35] LABS: Calcium 7.7 mg/dL (8.4-10.2); Potassium 3.2 mmol/L (3.5-5.1)
[2020-03-02] MEDS: SODIUM CHLORIDE 0.9% 1,000 ML IV SCH ×3 (07:51→18:10)
[2020-03-02] MEDS ORDERED: CYANOCOBALAMIN 500 MCG TAB PO SCH (09:00)
[2020-03-02] MEDS ORDERED: POTASSIUM CHLORIDE ER 20 MEQ TAB.ER PO STA (09:23)
[2020-03-02 17:48] VITALS: BP 105/72; PULSE 74; RESP 16; TEMP 97.8
--- NOTE | 2020-03-05 14:08 | CDI ---
Documentation Clarification Form Date: 03/05/20 From: Desi Garrett CCS Phone: If you have a question about this query, please contact Andreia Rodriguez, Auto Clocks Repairer at [phone] between 8am and 5pm. Admit Date: 03/01/20 Discharge Date:03/02/20 Patient Name: Kelsi Lal Visit Number: [id number] ATTENTION: The Clinical Documentation Specialists (CDI) and [facility] Coding Staff appreciate your assistance in clarifying documentation. Please respond to the clarification below the line at the bottom and electronically sign. The CDI & [facility] Coding staff will review the response and follow-up if needed. Please note: Queries are made part of the Legal Health Record. If you have any questions, please contact the author of this message via ITS. Dear Dr. Wheatley, Documentation states: Hgb 9.3, 9.1- Hct 30.2, 29.4 ED and H&P document hx or anemia History/Risk Factors: RAYSHAWN, Dehydration, UTI, Obesity, Hypokalemia Clinical indicators: Drop in Hgb, Hct Treatment: Monitor Clinical significance of diagnostic testing and treatment CANNOT be assumed or coded without physician documentation of significance if any. Please clarify what abnormal laboratory signifies: Iron deficiency anemia Anemia of chronic disease Disease process, please specify Infectious process, please specify Abnormal Lab Value Unable to determine Other, please specify Unable to determine MTDD
== END 2020-03-02 18:39 | disposition home health service (06) | DRG 683 ==
LOC: EC 15:41 → 1SOBS 19:20 → OBSVTOIN 03-01 12:05
PROVIDERS: ADMIT Hospitalist; ATTEND Hospitalist
DX: N17.9 Acute kidney failure, unspecified (principal); N39.0 Urinary tract infection, site not specified; I69.354 Hemiplegia and hemiparesis following cerebral infarction affecting left non-dominant side; Z11.59 Encounter for screening for other viral diseases; E86.0 Dehydration; R19.7 Diarrhea, unspecified; B02.9 Zoster without complications; Q15.8 Other specified congenital malformations of eye; E66.9 Obesity, unspecified; F32.9 Major depressive disorder, single episode, unspecified; E87.6 Hypokalemia; R11.2 Nausea with vomiting, unspecified; Z95.828 Presence of other vascular implants and grafts; Z90.11 Acquired absence of right breast and nipple; Z90.710 Acquired absence of both cervix and uterus; Z98.51 Tubal ligation status; Z90.49 Acquired absence of other specified parts of digestive tract; Z87.891 Personal history of nicotine dependence; Z68.33 Body mass index [BMI] 33.0-33.9, adult; Z82.3 Family history of stroke; Z81.1 Family history of alcohol abuse and dependence; Z80.1 Family history of malignant neoplasm of trachea, bronchus and lung; Z80.8 Family history of malignant neoplasm of other organs or systems; Z81.8 Family history of other mental and behavioral disorders; Z80.0 Family history of malignant neoplasm of digestive organs; Z82.0 Family history of epilepsy and other diseases of the nervous system
CPT/HCPCS: 36415; 74018; 80048; 80053; 81001; 82150; 82272; 82607; 83540; 83550; 83605; 83690; 85025; 87040; 87045; 87046; 87086; 87324; 96361; 96374; 96375; 99285